=== PATIENT | male | born 1945 | race Caucasian/White ===

== ENCOUNTER 2019-07-11 19:18 | Emergency (ER) | payer OTHER, MEDICARE, SELFPAY ==
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
[2019-07-11 19:19] VITALS: BP 168/94; PULSE 72; RESP 20; TEMP 36.5; O2SAT 100
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
[2019-07-11 21:21] LABS: Blood Urea Nitrogen 12 mg/dL (8-26); Estimated Glomerular Filt Rate 60
[2019-07-11 22:48] VITALS: BP 156/99; PULSE 67; RESP 18; O2SAT 98
== END 2019-07-11 22:50 | disposition home or self-care (01) ==
PROVIDERS: Emergency Provider Emergency Medicine; PCP Family Medicine
DX: S16.1XXA Strain of muscle, fascia and tendon at neck level, initial encounter (principal); S30.1XXA Contusion of abdominal wall, initial encounter; I10 Essential (primary) hypertension; K58.9 Irritable bowel syndrome, unspecified; I34.1 Nonrheumatic mitral (valve) prolapse; E78.2 Mixed hyperlipidemia; M47.812 Spondylosis without myelopathy or radiculopathy, cervical region; Z79.82 Long term (current) use of aspirin; F32.9 Major depressive disorder, single episode, unspecified; F41.1 Generalized anxiety disorder; V40.5XXA Car driver injured in collision with pedestrian or animal in traffic accident, initial encounter
CPT/HCPCS: 70450; 71260; 72125; 74177; 99284; L0140; Q9967

== ENCOUNTER 2019-11-20 11:12 | Outpatient (CLI) | payer MEDICARE, SELFPAY ==
--- NOTE | ~2019-11-20 | XR_ITS ---
EXAMINATION: XR abdomen obstructive series DATE: 11/20/2019 11:37 INDICATION: Constipation TECHNIQUE: Upright and supine views of the abdomen were obtained. COMPARISON: None. FINDINGS: There are no dilated loops of bowel. No free intraperitoneal gas is identified. The abdomen is relatively gasless. There appear to be fluid-filled loops of normal caliber large and small bowel . 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 IMPRESSION: 1. Nonobstructive bowel gas pattern. Reviewed, dictated and finalized at location A.
== END 2019-11-20 11:13 | disposition home or self-care (01) ==
PROVIDERS: PCP Family Medicine; Visit Provider Family Medicine
DX: K59.00 Constipation, unspecified (principal)
CPT/HCPCS: 74019

== ENCOUNTER 2020-04-23 07:05 | Outpatient (NON) | payer MEDICARE, SELFPAY ==
[2020-04-23 23:24] LABS: SARS-CoV-2 RNA PCR Negative
== END 2020-04-23 07:06 ==
LOC: ANHCOVIDDT 07:24
PROVIDERS: Visit Provider Family Medicine
DX: Z20.828 Contact with and (suspected) exposure to other viral communicable diseases (principal); R51.9 Headache, unspecified
CPT/HCPCS: 87635; C9803; U0003

== ENCOUNTER → 2020-09-24 08:25 | Outpatient (CLI) | payer MEDICARE, SELFPAY ==
--- NOTE | ~2020-09-24 | MR_ITS ---
EXAMINATION: MR hip LT wo con DATE: 09/24/2020 09:47 INDICATION: Left hip pain TECHNIQUE: Magnetic resonance imaging (MRI) of the left hip was performed without intravenous contra st. Sequences included full-field axial PD-weighted FS FSE and T1-weighted FSE, coronal of the pelvis with PD-weighted FS FSE, T1-weighted FSE and T2-weighted FS FSE, small field of view of the left hi p with axial PD-weighted FS FSE, sagittal PD-weighted FS FSE and coronal PD weighted FS FSE. Addition al radial T1-weighted FGR oriented orthogonal to the acetabular rim were obtained for evaluation of t he labrum. COMPARISON: None FINDINGS: Bones/labrum/cartilage: Alignment is normal. No fracture, avascular necrosis or pathologic marrow replacing process. There i s a tear of the 2:00-12:00 position of the anterosuperior left acetabular labrum. There is moderate o steoarthritis at the left hip with nonuniform joint space narrowing and regions of high-grade chondro malacia with prominent subarticular cystic change at the posterosuperior aspect of the femoral head a nd at the posterior inferior left acetabulum. Mild osteoarthritis with similar anterosuperior labral tear suggested at the contralateral right hip which is not diagnostically evaluated on the larger fie ld of view images. Additional degenerative subchondral cysts at the anterosuperior and posterior infe rior right acetabulum. Mild to moderate disc height loss at L5-S1 and mild lower lumbar facet osteoar thritis and mild bilateral sacroiliac osteoarthritis. Fluid: Symmetric physiologic amount of fluid within both hip joints. Soft tissues: Normal and symmetric muscle bulk and signal in the pelvis and visualized proximal thighs. The iliopso as, gluteal and proximal hamstring tendons are normal. Marked prostatomegaly measuring 6.1 x 5.0 x 4. 6 cm. Limited evaluation of visceral organs of the pelvis is otherwise unremarkable. No pathological ly enlarged pelvic/inguinal lymphadenopathy. IMPRESSION: 1. Moderate left hip osteoarthritis with tear of the anterosuperior labrum. 2. Mild to moderate osteoarthritis with similar anterosuperior labral tear suggested at the contralat eral right hip although sensitivity and specificity are decreased due to the lower resolution on the larger [id number] images. 3. Prostatomegaly. Reviewed, dictated and finalized at location A. IMPRESSION: 1. Moderate left hip osteoarthritis with tear of the anterosuperior labrum. 2. Mild to moderate osteoarthritis with similar anterosuperior labral tear sugg ested at the contralateral right hip although sensitivity and specificity are d ecreased due to the lower resolution on the larger [id number] images. 3. Prostatomegaly.
== END ==
PROVIDERS: PCP Family Medicine; Visit Provider Family Medicine
DX: M25.552 Pain in left hip (principal); M16.12 Unilateral primary osteoarthritis, left hip; S73.192A Other sprain of left hip, initial encounter; N40.0 Benign prostatic hyperplasia without lower urinary tract symptoms
CPT/HCPCS: 73721

== ENCOUNTER 2021-06-11 08:02 | Outpatient (CLI) | payer MEDICARE, SELFPAY ==
[2021-06-11 09:37] LABS: Basophils Absolute Auto 0.1 K/mm3 (0.0-0.1); Basophils Percent Auto 1.3 % (0.2-1.2); Eosinophils Absolute Auto 0.2 K/mm3 (0-0.3); Eosinophils Percent Auto 2.9 % (0-4.4); Hematocrit 46.4 % (42.0-52.0); Hemoglobin 15.9 g/dL (14.0-18.0); Immature Granulocyte Absolute 0.04 K/mm3 (0.00-0.031); Immature Granulocyte Percent A 0.7 % (0-0.5); Lymphocytes Absolute Auto 1.27 K/mm3 (0.9-3.2); Lymphocytes Percent Auto 23.4 % (18.3-44.2); Mean Corpuscular HGB Conc 34.3 g/dl (32-36); Mean Corpuscular Hemoglobin 29.5 pg (26-34); Mean Corpuscular Volume 86.1 fl (80-100); Mean Platelet Volume 9.7 fl (7.4-10.4); Monocytes Absolute Auto 0.5 K/mm3 (0.1-0.6); Monocytes Percent Auto 9.9 % (2.6-8.5); Neutrophils Absolute Auto 3.4 K/mm3 (1.3-6.7); Neutrophils Percent Auto 61.8 % (45.5-73.1); Platelet Count Result 291 k/mm3 (150-375); Red Blood Count 5.39 M/mm3 (4.6-6.20); Red Cell Distribution Width 11.9 % (11.5-14.5); White Blood Count 5.4 K/mm3 (4.5-10.0)
[2021-06-11 09:58] LABS: Urine Cotinine NEGATIVE
[2021-06-11 10:00] LABS: Albumin Level 4.3 g/dL (3.5-5.1); Anion Gap 8 mmol/L (8-16); Blood Urea Nitrogen 11 mg/dL (9-20); Calcium 9.1 mg/dL (8.4-10.2); Carbon Dioxide 29 mmol/L (22-30); Chloride 97 mmol/L (98-107); Estimated Glomerular Filt Rate 59; Glucose 100 mg/dL (65-110); Potassium 4.6 mmol/L (3.4-5.0); Sodium 134 mmol/L (137-145)
[2021-06-11 10:05] LABS: Hemoglobin A1C 5.1 % (<5.7)
== END 2021-06-11 08:03 | disposition home or self-care (01) ==
LOC: ANHSURGERY 08:06
PROVIDERS: PCP Family Medicine; Visit Provider Orthopaedic Surgery
DX: Z01.812 Encounter for preprocedural laboratory examination (principal); M16.11 Unilateral primary osteoarthritis, right hip; Z51.81 Encounter for therapeutic drug level monitoring; Z79.899 Other long term (current) drug therapy
CPT/HCPCS: 80048; 80307; 82040; 83036; 85025; 87070

== ENCOUNTER 2021-06-28 10:05 | Inpatient (IN) | payer MEDICARE, SELFPAY ==
--- NOTE | 2021-06-11 08:09 | PC.NURSE ---
Report to the Outpatient Waiting Room, entrance under the green pavilion located off [facility], at time _6:00AM on date ___06/28/21____. OR Time: __7:30AM . - You and your visitor will be asked a series of questions to screen for COVID 19 for your protection. - A mask is required within the hospital. - Only one visitor is allowed at this time. Patient visitors will be guided where to wait when not with patient. Preoperative COVID Testing Requirements: No COVID Test needed if: (proof is required; if not received patient will have Rapid Test prior to entry) - Patient has received COVID Vaccine at least 14 days prior to procedure date or - Patient has positive COVID test result within last 90 days of surgery date. COVID Test needed if above criteria is not met If not COVID vaccinated a COVID test must be conducted within 72 hours of surgery and patient is asked to isolate self from time of testing until procedure. You will go to the [facility] for your COVID testing. The [facility] site is located at the corner of [address] [facility]. You will only be called if COVID results are positive and your surgeon may reschedule your elective surgery date. Patients may have clear liquids (water, carbonated beverages, clear teas, apple juice) until 3 hours prior to surgery with a maximum of 20 ounces. - No food from midnight until time of surgery - Infants may have breast milk until 4 hours before surgery, infant formula 6 hours prior to surgery. - Children will be allowed to drink immediately following surgery. If applicable, please bring a bottle or sippy cup to assist with drinking. Juice, water, soda, and popsicles are readily available. For infants on formula, please bring formula the day of surgery. Pacifiers are allowed. Take the following medications with a SIP of water the morning of surgery: __BUPROPION, BUSPIRONE Medications to discontinue per physician ALL VITAMINS/SUPPLEMENTS-3 DAYS PRE-OP-06/24/21, ASPIRIN & MELOXICAM 7 DAYS PRE-OP-06/21/21 Date to take last dose Please no make-up, nail bruneian, hairspray, perfume, deodorant, or body powder the day of surgery. No jewelry (including any body piercings) or valuables the day of surgery, leave them at home. Please take a shower or bath the night before, or the morning of, surgery with an antibacterial soap. Wear comfortable, loose fitting clothing. Children are encouraged to wear pajamas. - Jewelry must be removed prior to entering the operating room. Rings and piercings that are not removed may be cut off. - The hospital will not accept responsibility for valuables. - Please leave all valuables, including medications, at home the day of surgery. If you are going home after surgery, a licensed company truck driver must drive you home. - NO public transportation without another adult. - We recommend that an adult stay with you for 24 hours following discharge. - We also recommend that you do not drive, make important decision, drink alcoholic beverages, or take any drugs that were not prescribed by your health care provider for at least 24 hours after your discharge time. For Pediatric surgeries, we recommend two adults accompany the child home (only one inside the building at this time). Follow any additional instructions given to you from your surgeon. Telephone instructions given to ____PATIENT and asked if any additional questions and then verbalized understanding. Patient advised to call surgeon office or pre surgery nurse liaison [phone] if any additional questions.
[2021-06-11 08:29] VITALS: BP 167/92; PULSE 65; RESP 18; TEMP 36.5; O2SAT 95; BMI 27.8
--- NOTE | 2021-06-25 14:05 | PM.IMHP ---
H&P: HPI History of Present Illness Date/Time: 06/25/21 14:1845-[id number] male patient of Dr. Sosa who presents today for a right anterior total arthroplasty. He is having pain in both of his hips for several years. At this point his right is more painful than left. He has rather severe arthritis in both of his hips. He has been on meloxicam 15 mg daily which is tolerating unfortunately is not helping to control his symptoms. Most the pain is in the medial groin. It is limiting his activities because of the pain. Patient has reached a point where he feels ready proceed with total hip arthroplasty rather than continuing nonsurgical treatment. Chief Complaint: Right hip DJD Review of Systems Review of Systems: All systems reviewed & are unremarkable except as noted in HPI and below PMFSH Past Medical History Medical History Abdominal adhesions Benign prostatic hyperplasia Essential (primary) hypertension Family history of prostate carcinoma Generalized anxiety disorder Hydrocele IBS (irritable bowel syndrome) Macular degeneration Major depressive disorder, single episode, in partial remission Mitral valve prolapse Mixed hyperlipidemia Overweight (BMI 25.0-29.9) Surgical History Surgical History Hx of appendectomy Hx of tonsillectomy Family History Family History Mother Family history of hypercholesterolemia Hypertension Family history of cardiovascular disease Family history of schizophrenia Father Family history of cardiovascular disease Malignant neoplasm of prostate Grandparent Family history of cardiovascular disease Family history of hypercholesterolemia Sibling Patient's sister is in good health Family history of alcoholism Patient's brother is Other Family history of kidney stones Family history of mental disorder Social History Social History Smoking status: Never smoker Alcohol intake: former Alcohol use details: QUIT DRINKING HEAVILY ~1979 Substance use: never Spiritual care concerns: No Meds Home Medications and Allergies Home Medications Medication Instructions Recorded Confirmed Type aspirin 81 mg tablet,delayed 81 mg PO DAILY 06/27/19 06/11/21 History release cholecalciferol (vitamin D3) 50 50 mcg PO DAILY 07/13/20 06/11/21 History mcg (2,000 unit) capsule vitamin B complex 1 tablet PO EVERY OTHER DAY 07/13/20 06/11/21 History rosuvastatin 5 mg tablet 5 mg PO DAILY #90 tablet 04/19/21 06/11/21 Rx bupropion HCl [Wellbutrin XL] 150 mg PO QAM 06/11/21 06/11/21 History buspirone 10 mg PO BID 06/11/21 06/11/21 History doxepin 60 mg PO HS 06/11/21 06/11/21 History famotidine 40 mg PO QACDINNER 06/11/21 06/11/21 History folic acid 0.4 mg PO DAILY 06/11/21 06/11/21 History meloxicam 15 mg PO QAM 06/11/21 06/11/21 History nebivolol [Bystolic] 20 mg PO HS 06/11/21 06/11/21 History quetiapine [Seroquel] 25 mg PO HS 06/11/21 06/11/21 History lisinopril 20 mg tablet See Rx Instructions .ROUTE 06/16/21 Rx .COMPLEX #90 tablet Allergies Allergy/AdvReac Type Severity Reaction Status Date / Time azithromycin AdvReac Intermediate Nausea Verified 06/11/21 08:14 ciprofloxacin AdvReac Unknown Nausea Verified 06/11/21 08:14 SHINGLES IMMUNIZATION Allergy Rash Uncoded 06/11/21 08:15 Exam Narrative: 76-year-old male alert pleasant. He is 5 ft 10 195 lb. Walks with a minimal limp. His right hip flexes to 120 internally rotates to 0 externally rotates 30. With range of motion he has significant pain in the anterior medial groin and an anterior lateral hip. No tenderness over the greater trochanter. Normal abduction strength in lateral position. Skin around the hip and groin crease for all normal. No edema in either lower extremity. 2+ post
[2021-06-28] VITALS (16 sets, daily range): BP systolic 135–163; BP diastolic 66–100; PULSE 61–117; RESP 12–20; TEMP 36–36.8; O2SAT 94–100
--- NOTE | ~2021-06-28 | XR_ITS ---
EXAMINATION: XR hip RT 1V w AP pelvis DATE: 06/28/2021 11:05 INDICATION: Postoperative evaluation following right total hip arthroplasty TECHNIQUE: Anteroposterior and lateral views of the right hip were obtained. COMPARISON: Right hip radiographs dated 05/09/2008 FINDINGS: Interval placement of a right total hip arthroplasty which appears well seated in near anatomic align ment.The acetabular component is affixed with a single screw. Surgical drain and expected subcutaneou s gas in the postoperative bed. No fractures identified. Mild left hip osteoarthritis. IMPRESSION: 1. Right total hip arthroplasty, negative for postoperative purposes. Reviewed, dictated and finalized at location A. L COORDINATOR
--- NOTE | ~2021-06-28 | XR_ITS ---
EXAMINATION: XR surgery orthopedic EXAM DATE: 06/28/2021 10:47 INDICATION: Right Total Arthroplasty Anterior Approach. TECHNIQUE: Fluoroscopy used during XR surgery orthopedic performed by Dr. Raúl Alicia MD. Radi ologist was not present for the imaging or procedure. Total fluoroscopic time of 48 seconds. The DA P for this procedure was 0.3 mGym2. A total of 1 image plus dose report sent to PACS from the exam. FINDINGS: Frontal image demonstrates total right hip arthroplasty hardware in expected position. Co rrelate with procedure note. IMPRESSION: Fluoroscopy used during XR surgery orthopedic. Reviewed, dictated and finalized at location B. NSKEEPER SUPERVISOR
[2021-06-28] MEDS: ACETAMINOPHEN 500 MG TABLET 1000 MG PO (06:30)
[2021-06-28] MEDS: TRANEXAMIC ACID 1,000MG/ISO100 1,000 MG/100 ML BAG 200 MG IVPB (06:31)
--- NOTE | 2021-06-28 06:49 | WPDANESEPPF ---
Anes - Initial Pre Proc Eval Procedure: Operation Date: 06/28/21 07:30 Proposed Procedures p Right Total Hip Arthroplasty Anterior Approach - Raúl Alicia MD Date/Time: 06/28/21 06:49 Surgeon: Raúl Alicia MD Pre Op Diagnosis: right hip oa Patient Data Age: 76 Gender: M Height: 1.79 m Weight: 89.1 kg Last Vital Signs Temp 36.5 C 06/11/21 08:29 Pulse 65 06/11/21 08:29 Resp 18 06/11/21 08:29 BP 167/92 H 06/11/21 08:29 Pulse Ox 95 06/11/21 08:29 Allergies Allergy/AdvReac Type Severity Reaction Status Date / Time azithromycin AdvReac Intermediate Nausea Verified 06/11/21 08:14 ciprofloxacin AdvReac Unknown Nausea Verified 06/11/21 08:14 SHINGLES IMMUNIZATION Allergy Rash Uncoded 06/11/21 08:15 Home Medications Medication Instructions Recorded Confirmed Type aspirin 81 mg tablet,delayed 81 mg PO DAILY 06/27/19 06/11/21 History release cholecalciferol (vitamin D3) 50 50 mcg PO DAILY 07/13/20 06/11/21 History mcg (2,000 unit) capsule vitamin B complex 1 tablet PO EVERY OTHER DAY 07/13/20 06/11/21 History rosuvastatin 5 mg tablet 5 mg PO DAILY #90 tablet 04/19/21 06/11/21 Rx bupropion HCl [Wellbutrin XL] 150 mg PO QAM 06/11/21 06/11/21 History buspirone 10 mg PO BID 06/11/21 06/11/21 History doxepin 60 mg PO HS 06/11/21 06/11/21 History famotidine 40 mg PO QACDINNER 06/11/21 06/11/21 History folic acid 0.4 mg PO DAILY 06/11/21 06/11/21 History meloxicam 15 mg PO QAM 06/11/21 06/11/21 History nebivolol [Bystolic] 20 mg PO HS 06/11/21 06/11/21 History quetiapine [Seroquel] 25 mg PO HS 06/11/21 06/11/21 History lisinopril 20 mg tablet See Rx Instructions .ROUTE 06/16/21 Rx .COMPLEX #90 tablet Patient hx anesthesia problems: none Family hx anesthesia problems: none Results Review: All pre-operative results and documents have been reviewed as part of the pre-operative evaluation. [facility] Past Medical History Medical History Abdominal adhesions Benign prostatic hyperplasia Essential (primary) hypertension Family history of prostate carcinoma Generalized anxiety disorder Hydrocele IBS (irritable bowel syndrome) Macular degeneration Major depressive disorder, single episode, in partial remission Mitral valve prolapse Mixed hyperlipidemia Overweight (BMI 25.0-29.9) Surgical History Surgical History Hx of appendectomy Hx of tonsillectomy Family History Family History Mother Family history of hypercholesterolemia Hypertension Family history of cardiovascular disease Family history of schizophrenia Father Family history of cardiovascular disease Malignant neoplasm of prostate Grandparent Family history of cardiovascular disease Family history of hypercholesterolemia Sibling Patient's sister is in good health Family history of alcoholism Patient's brother is Other Family history of kidney stones Family history of mental disorder Social History Social History Smoking status: Never smoker Alcohol intake: former Alcohol use details: QUIT DRINKING HEAVILY ~1979 Substance use: never Living arrangements: alone Spiritual care concerns: No Anes - Eval Final PreProcedure Day of Procedure 06/28/21 06:49 Patient weight: overweight Heart: regular rate and rhythm Lungs: clear to auscultation Airway: Mallampati scale class II Neurological: alert and oriented Last oral intake: >/= 8 hours ASA classification: III Emergent: no Anesthetic plan: proceed Anesthesia type and monitoring: general ETT and standard monitoring Results Review: All pre-operative results and documents have been reviewed as part of the pre-operative evaluation. Informed Consent: The patient's anesthetic plan and its attendant risks an
[2021-06-28] MEDS: LACTATED RINGERS 1,000 ML 30 ML IV CONT ×2 (07:01→11:07)
--- NOTE | 2021-06-28 07:14 | WPDHPUPDATE1 ---
History and Physical Update Update Date/Time: 06/28/21 07:14 History and Physical has been reviewed, including an updated exam of the patient. There are NO changes in the patient's condition. Risks, benefits, and alternatives have been discussed and questions answered. Patient agrees to proceed with procedure.
[2021-06-28] MEDS: ceFAZolin 2 GM/D5W 50 ML 2 GM/50 ML BAG IVPB (07:32)
[2021-06-28] MEDS: ceFAZolin SODIUM 1 GM VIAL 3 GM IRRIGATION (08:29)
[2021-06-28] MEDS: TRANEXAMIC ACID 1,000 MG/10 ML AMPUL 1000 MG IV PUSH (10:31)
[2021-06-28] MEDS: ceFAZolin SODIUM 1 GM VIAL IV PUSH (10:31)
--- NOTE | 2021-06-28 11:34 | W.PM.PROC2 ---
Procedure Note - Detailed Date of Procedure 06/28/21 Pre-op Diagnosis right hip oa Post-op Diagnosis same Procedure Performed Right total hip arthroplasty Surgeon Raúl Alicia MD [employer] Account Manager Shira Anesthesia general Description of Procedure Patient was brought to the operating room and general anesthesia was administered. The feet were padded boots applied and [facility] and the right hip prepped draped usual fashion. He received 2 g Ancef weight based vancomycin preoperatively 1 g tranexamic acid. A 10 cm longitudinal incision was made starting 3 cm lateral to the ASIS. The fascia of the tensor fascia herbert was exposed and incised over its midportion and elevated off the anterior 50% of the tensor fascia herbert muscle. Crossing branches of lateral femoral ascending circumflex vessels were identified ligated and divided. Anterior capsule was exposed. The hip was abducted internally rotated and the gluteus medius elevated off the lateral capsule. Standard capsulotomy was performed. Femoral neck osteotomy was made according to preoperative templating. Femoral head was removed. It measured 50 mm in diameter. Acetabulum was exposed labrum excised. Femur was externally rotated extended and the interval between the conjoined tendon and the piriformis tendon was incised allowing the conjoined tendon to recessed. The piriformis flipped posteriorly. Leg was prepped brought back to the horizontal position acetabulum exposed and reamed to 51 mm which gave circumferential contact with the Reamer and the 51 mm trial was tight. We liked the 52 and impacted the 52 shell and which achieved excellent Press-Fit. This was placed at 40? of abduction and anteversion set the anterior rim the shell was a mm under the anterior well and about 2 mm proud the posterior wall. Fluoroscopic guidance assisted positioning. Single screw placed in the ilium. 36 mm inner diameter acetabular liner placed without difficulty. Femur was externally rotated extended with the table hook for elevation and we broached up to a size 5 which gave complete torsional stability. Trialing with a 1.5 standard neck we were just a little bit tight and we were about 3 mm longer than our templated plan. The broach was countersunk 5 mm and we trialed the +5 and just gave excellent stability and appropriate Shuck and under fluoro leg lengths were equal. The size 5 Depuy Actis stem was fully seated with excellent stability. We impacted the +5 x 36 ceramic head. And a puree irrigation the hip was reduced stability soft tissue tension reconfirmed to be appropriate. Local anesthetic cocktail was injected in the soft tissues. The anterior capsular flap allowed to rest in situ. The lateral tip of lateral capsular flap had been removed. Final intraoperative fluoro x-ray showed appropriate position of the implants. Capsule was repaired with running 1. Vicryl drain placed deep in the subcu skin closed with 2-0 Vicryl and glue EBL was 400 cc any received 125 back as Cell Saver. 3rd g Ancef 2nd tranexamic acid were given time wound closure. Was transferred postop recovery room in good condition no known complications. Bone quality see very good we allowed weight-bearing as tolerated. Implants Scifiniti Estimated Blood Loss -400.0 Drains Yes Packing No Pathology none sent Complications No immediate complications Condition stable Disposition PACU
[2021-06-28] MEDS: DEXAMETHASONE SOD PHOS INJ 4 MG/ML VIAL IV PUSH (11:47)
[2021-06-28] MEDS: ONDANSETRON INJ 4 MG/2 ML VIAL IV PUSH ×2 (12:07→15:49)
--- NOTE | 2021-06-28 13:24 | PC.NURSE ---
This patient, Sher Hicks, was admitted to [place] [address]. Patient oriented to hospital policies and general routines including ID bracelet, bed and alarms, pain management, procedures, bathroom and other care routines, personal items, smoking policy, and room service/diet. Information on how to activate the Rapid Response Team has been discussed. Patient are encouraged to report perceived risks to care and to ask questions if they do not understand what they are told or what they should do.
--- NOTE | 2021-06-28 13:35 | PCOTNOTE ---
Attempted OT evaluation, gained PLOF and completed bed mobility, unable to maintain sitting on edge of bed due to nausea, returned back to bed. Will return at later time to complete OT evaluation.
[2021-06-28] MEDS: PROPARACAINE HCL 0.5% 15 ML OPHTH SOLN 1 DROP EACH EYE (13:49)
[2021-06-28] MEDS: ARTIFICIAL TEARS OPHTH SOLN 15 ML BOTTLE 1 DROP EACH EYE (13:49)
--- NOTE | 2021-06-28 13:51 | PCPTNOTE ---
Attempted PT evaluation, gained PLOF and completed bed mobility, unable to maintain sitting on edge of bed due to nausea, returned back to bed. Will return at later time to complete PT evaluation.
[2021-06-28] MEDS: SODIUM CHLORIDE 0.9% IV 1,000 ML 125 ML IV CONT (13:57)
--- NOTE | 2021-06-28 15:30 | WPDCN ---
Assessment and Plan Assessment and plan (1) Osteoarthritis of right hip: Code(s): M16.11 - Unilateral primary osteoarthritis, right hip Status: Acute Assessment and Plan: Postoperative day 0 status post right hip arthroplasty. Wound care, pain control, and DVT prophylaxis deferred to Dr. Alicia. He has been up with PT already today and is doing well. (2) Essential (primary) hypertension: Code(s): I10 - Essential (primary) hypertension Status: Chronic Assessment and Plan: Blood pressures have been running a bit high postoperatively, likely due to pain. Resume antihypertensives and monitor daily. (3) Mixed hyperlipidemia: Code(s): E78.2 - Mixed hyperlipidemia Status: Chronic Assessment and Plan: Continue statin check LFTs in the morning. (4) Depression with anxiety: Code(s): F41.8 - Other specified anxiety disorders Status: Acute Assessment and Plan: No acute issues. Continue bupropion, buspirone, and doxepin. (5) Benign prostatic hyperplasia: Code(s): N40.0 - Benign prostatic hyperplasia without lower urinary tract symptoms Status: Acute Assessment and Plan: Patient states he is not able to tolerate medications for this, unfortunately. I am concerned that he may have difficulties with urinary retention postoperatively. Monitor strict I/ O. Bladder scan and straight cath if needed. Additional Plan Thank you for allowing us to participate in this patient's care. Please do not hesitate to contact us with any questions. Supervising physician for this medical consultation is Dr. George Lowe. On the date of service, he was a same-day surgery patient. HPI Data of Consult Date/Time: 06/28/21 15:30 Requesting Physician: Raúl Alicia MD Reason for consult: Post-operative medical management Primary Care Provider: Adriano Sosa MD Consult Narrative Narrative: This is a very pleasant 76-year-old male with hypertension, hyperlipidemia, benign prostatic hyperplasia, and osteoarthritis whom the hospitalist service has been consulted for management of his medical conditions postoperatively. He has had longstanding pain in his right hip, not amenable to conservative outpatient treatment and thus he elected for replacement today. His surgery was perform today under general anesthesia with no immediate complications document an estimate blood lost 400 mL with 125 mL received back as Cell Saver. Postoperatively he had quite a bit of nausea and vomiting though was able to have a small amount of broth and putting for dinner. He has minimal pain and has been up in his room without issue. He denies fever, chills, sweats, chest pain, and shortness of breath. No paresthesias, skin color, or temperature changes distal to the surgical site. On discharge the patient will return to his own home. His sister has come in from [place] to help him out postoperatively. Review of Systems Review of Systems: Twelve systems were reviewed. No fever, chills, or sweats. No recent cold or flu symptoms. No known exposure to those positive for COVID-19. He has had issues for quite a while with BPH though has not been able to tolerate medication. It is not unusual for him to get up 3 to 4 times a night to urinate. Sometimes it will take him minutes before he is able to start his stream. Postoperatively he has been having problems with urination. I suggested that we may need to straight cath him however he is hesitant at this time. No history of venous thromboembolism. Except as documented, all other systems were reviewed and are negative. [facility] Past Medical History Medical History (Updated 06/28/21 @ 13:44 by Dominga Marquez PA-C) Benign prostatic hyperplasia Essential (primary) hypertension Generalized anxiety disorder Irritable bowel syndrome Macular degeneration Major depressive di
--- NOTE | 2021-06-28 16:05 | PC.NURSE ---
Gave report to NIRMAL Salazar. Patient will be transferred to inpatient floor.
[2021-06-28] MEDS: SENNA/DOCUSATE SODIUM TABLET 2 TAB PO (19:16)
[2021-06-28] MEDS: NEBIVOLOL HCL 5 MG TABLET 20 MG PO (20:47)
[2021-06-28] MEDS: DOXEPIN HCL 25 MG CAPSULE 50 MG PO (20:49)
[2021-06-28] MEDS: DOXEPIN HCL 10 MG CAPSULE PO (20:50)
[2021-06-28] MEDS: QUEtiapine FUMARATE 25 MG TABLET PO (22:14)
[2021-06-28] MEDS: FAMOTIDINE 20 MG TABLET PO (22:14)
[2021-06-28] MEDS: DICLOFENAC SODIUM 0.1% OPHTH SOLN 2.5 ML BOTTLE 1 DROP EACH EYE (22:44)
[2021-06-28] MEDS: LIDOCAINE HCL 2% GEL UROJET 10 ML PKG MUCOUS MEM (22:44)
[2021-06-29 02:13] VITALS: BP 159/76; PULSE 86; RESP 20; TEMP 37.1; O2SAT 98
[2021-06-29] MEDS: oxyCODONE HCL (*CRX) 5 MG TAB IR PO (05:49)
[2021-06-29] MEDS: DICLOFENAC SODIUM 0.1% OPHTH SOLN 2.5 ML BOTTLE 1 DROP EACH EYE (05:51)
[2021-06-29 05:53] LABS: Basophils Percent Auto 0.2 % (0.2-1.2); Eosinophils Percent Auto 0.1 % (0-4.4); Hematocrit 35.9 % (42.0-52.0); Hemoglobin 12.3 g/dL (14.0-18.0); Immature Granulocyte Absolute 0.05 K/mm3 (0.00-0.031); Immature Granulocyte Percent A 0.4 % (0-0.5); Lymphocytes Absolute Auto 1.13 K/mm3 (0.9-3.2); Lymphocytes Percent Auto 9.9 % (18.3-44.2); Mean Corpuscular HGB Conc 34.3 g/dl (32-36); Mean Corpuscular Hemoglobin 29.5 pg (26-34); Mean Corpuscular Volume 86.1 fl (80-100); Mean Platelet Volume 9.7 fl (7.4-10.4); Monocytes Absolute Auto 1.3 K/mm3 (0.1-0.6); Monocytes Percent Auto 11.6 % (2.6-8.5); Neutrophils Absolute Auto 8.9 K/mm3 (1.3-6.7); Neutrophils Percent Auto 77.8 % (45.5-73.1); Platelet Count Result 237 k/mm3 (150-375); Red Blood Count 4.17 M/mm3 (4.6-6.20); Red Cell Distribution Width 11.5 % (11.5-14.5); White Blood Count 11.4 K/mm3 (4.5-10.0)
[2021-06-29 06:06] LABS: Alanine Aminotransferase 17 U/L (4-50); Albumin Level 3.4 g/dL (3.5-5.1); Alkaline Phosphatase 50 U/L (38-126); Anion Gap 3 mmol/L (8-16); Aspartate Amino Transferase 32 U/L (17-59); Bilirubin,Total 0.8 mg/dL (0.2-1.3); Blood Urea Nitrogen 10 mg/dL (9-20); Calcium 8.3 mg/dL (8.4-10.2); Carbon Dioxide 27 mmol/L (22-30); Chloride 97 mmol/L (98-107); Estimated CRCL calculation 66 ml/min; Estimated Glomerular Filt Rate > 60; Glucose 119 mg/dL (65-110); Magnesium 1.8 mg/dL (1.6-2.3); Potassium 3.6 mmol/L (3.4-5.0); Sodium 127 mmol/L (137-145)
[2021-06-29 06:13] VITALS: BP 150/86; PULSE 95; RESP 20; TEMP 37; O2SAT 98
--- NOTE | 2021-06-29 06:29 | PM.PNORT ---
Subjective Subjective Date/Time Seen: 06/29/21 06:29 Postop day 1 patient is alert and pleasant. He is afebrile vital signs are stable. He was having quite a bit and nausea postoperatively yesterday and was unable to ambulate with physical therapy. Overnight nausea has improved. He has had no bouts of vomiting. He did have retention and needed to be straight catheterization overnight. Since then he has been urinating well. Patient has a known history of an enlarged prostate that he provided me this information today. He has a appointment with Urology later this month. His drain is out. Neurovascularly he is intact. Pain is controlled overall. He is taking oxycodone this morning. He has refused Tylenol overnight because he was not having any pain. His Eliquis starting this morning. We will plan to have the patient work with physical therapy today and discharge him home later this morning or this afternoon depending does with therapy. Morning labs are noted. Objective Data Vital Signs Vital Signs: Vital Signs - 24 hr 06/28/21 07:00 06/28/21 11:07 06/28/21 11:20 Temperature 36.1 C L 36.5 C Pulse Rate 65 84 62 Respiratory Rate 16 12 12 Blood Pressure 154/85 H 142/66 H 135/78 Pulse Oximetry 100 100 100 06/28/21 11:35 06/28/21 11:50 06/28/21 12:00 Temperature Pulse Rate 61 62 62 Respiratory Rate 12 12 13 Blood Pressure 138/84 145/74 H 138/77 Pulse Oximetry 100 100 99 06/28/21 12:15 06/28/21 12:28 06/28/21 12:43 Temperature 36.0 C L Pulse Rate 65 117 H 65 Respiratory Rate 12 18 15 Blood Pressure 141/74 H 148/100 H 148/70 H Pulse Oximetry 100 94 100 06/28/21 13:15 06/28/21 14:00 06/28/21 15:09 Temperature 36.2 C L 36.5 C 36.1 C L Pulse Rate 64 68 100 Respiratory Rate 19 19 19 Blood Pressure 142/66 H 148/82 H 148/82 H Pulse Oximetry 97 100 100 06/28/21 16:00 06/28/21 18:13 06/28/21 20:47 Temperature 36.6 C 36.8 C Pulse Rate 79 85 102 H Respiratory Rate 18 18 Blood Pressure 147/98 H 154/98 H Pulse Oximetry 100 99 06/28/21 22:13 06/29/21 02:13 Temperature 36.8 C 37.1 C Pulse Rate 98 86 Respiratory Rate 20 20 Blood Pressure 163/85 H 159/76 H Pulse Oximetry 99 98 Intake/Output Intake/Output: Intake & Output 06/26/21 06/27/21 06/28/21 06/29/21 23:59 23:59 23:59 23:59 Intake Total 1500 Output Total 980 Balance 520 Meds/Results Medications: Active Medications Generic Name Dose Route Start Last Admin Trade Name Freq PRN Reason Stop Dose Admin Acetaminophen 1,000 mg 06/28/21 17:24 Acetaminophen 500 Mg Tablet PO Q6HR PRN pain 1-3 Apixaban 2.5 mg 06/29/21 09:00 Apixaban 2.5 Mg Tablet PO 07/10/21 21:01 Q12HR JAMAR Artificial Tears 1 drop 06/28/21 12:47 06/28/21 13:49 Artificial Tears Ophth Soln 15 Ml Bottle EACH EYE 1 drop Q2H PRN Administration Dry Eye(s) Bisacodyl 10 mg 06/28/21 12:28 Bisacodyl 10 Mg Suppository RECTAL DAILY PRN Constipation Bupropion HCl 150 mg 06/29/21 09:00 Bupropion Hcl Xl (24 Hr) 150 Mg Tabcr PO QAM JAMAR Buspirone HCl 10 mg 06/28/21 17:24 Buspirone Hcl 10 Mg Tablet PO BID PRN Anxiety Celecoxib 200 mg 06/29/21 08:00 Celecoxib 200 Mg Capsule PO DAILY@0800 JAMAR Diclofenac Sodium 1 drop 06/28/21 14:00 06/29/21 05:51 Diclofenac Sodium 0.1% Ophth Soln 2.5 Ml Bottle EACH EYE 07/02/21 13:59 1 drop Q8HR JAMAR Administration Diphenhydramine HCl 25 mg 06/28/21 12:28 Diphenhydramine Hcl Inj 50 Mg/Ml Vial IV PUSH Q6H PRN Itching Doxepin HCl 50 mg 06/28/21 21:00 06/28/21 20:49 Doxepin Hcl 25 Mg Capsule PO 50 mg HS JAMAR Administration Doxepin HCl 10 mg 06/28/21 21:00 06/28/21 20:50 Doxepin Hcl 10 Mg Capsule PO 10 mg HS JAMAR Administration Famotidine 20 mg 06/28/21 21:00 06/28/21 22:14 Famotidine 20 Mg Tablet PO 20 mg Q12HR JAMAR Administration Folic Acid 0.4 mg 06/29/21 09:00 Folic Acid 0.
--- NOTE | 2021-06-29 06:38 | PM.DS ---
DS: Admitting Diagnosis Discharge Date 06/29/2021 Admitting Diagnosis right hip DJD DS: Summary Hospital Course Hospital Course: stable Time Spent with Patient Time attestation: Total time spent providing and/or coordinating discharge services: 76-year-old male who underwent right anterior total hip arthroplasty on 06/17/2021. Under procedure Without complications. Postoperatively he was nauseated quite a bit. he was able to ambulate with physical therapy postoperatively on day of surgery because of the nausea. No episodes of vomiting. Patient did have some urinary retention overnight need be straight cath. Since that time he has been urinating well. He has a known history of enlarged prostate. He has a appointment with Urology later this month. He refused the Tylenol overnight. Morning of postop day 1 he did take the oxycodone and tolerated this well without any nausea. He starts his Eliquis this morning as well and will be on this for 5 weeks. He is also started Celebrex once a day. Therapy will work with patient on postop day 1 if he is having no nausea is feeling well plan on discharging him home later that day. Patient's drain is out. Neurovascularly he is intact. His wound is dry. Patient's sodium was low on postop day 1 but he was having no symptoms from this. Overall patient is progressing well. Was advise any questions or concerns he is to call the office otherwise we will see him as appointed dates. DS: Data Data Completed and Pending Labs on day of discharge: Labs from last 24 hours 06/29/21 06/29/21 06/28/21 05:43 05:43 06:28 WBC 11.4 H RBC 4.17 L Hgb 12.3 L D Hct 35.9 L MCV 86.1 MCH 29.5 MCHC 34.3 RDW 11.5 Plt Count 237 MPV 9.7 Immature Gran % (Auto) 0.4 Neut % (Auto) 77.8 H Lymph % (Auto) 9.9 L [place] % (Auto) 11.6 H Eos % (Auto) 0.1 Baso % (Auto) 0.2 Lymph # (Auto) 1.13 [place] # (Auto) 1.3 H Eos # (Auto) 0.0 Baso # (Auto) 0.0 Abs Immat Gran (auto) 0.05 H Absolute Neuts (auto) 8.9 H Absolute Nucleated RBC 0.0 Nucleated RBC % 0.0 Sodium 127 L Potassium 3.6 Chloride 97 L Carbon Dioxide 27 Anion Gap 3 L BUN 10 Creatinine 0.90 Estim Creat Clear Calc 66 Estimated GFR > 60 Glucose 119 H Calcium 8.3 L Magnesium 1.8 Total Bilirubin 0.8 Direct Bilirubin 0.0 AST 32 ALT 17 Alkaline Phosphatase 50 Total Protein 6.0 L Albumin 3.4 L Blood Type A Positive Antibody Screen Negative Discharge Plan Discharge Patient Disposition: Home, Self-Care Discharge Instructions: RAÚL ALICIA M.D [facility], [place] [id number] [place] [address] POST-OPERATIVE DISCHARGE INSTRUCTIONS ANTERIOR TOTAL HIP ARTHROPLASTY 1. Move toes/feet up and down every hour while awake. 2. Be up walking every hour while awake. 3. Use cane in hand opposite of side of hip surgery or walker as comfort allows. Avoid sitting in a chair unless eating, receiving visitors or using the toilet. 4. When resting, lie on back with leg elevated above heart to minimize swelling. Significant swelling could indicate a blood clot and if this occurs, call the office (or go to the ER) to have a venous ultrasound performed. 5. Wound Care: Keep dry sponge on wound for 2 weeks. Use minimal tape. 6. Follow weight bearing status as instructed. 7. May shower with dressing off. Patient Instructions: Apixaban (By mouth) Follow-up/Referrals: Raúl Alicia MD [Physician] - Keep Reg. Scheduled Appt. Discharge Medications: New celecoxib [Celebrex] 200 mg Capsule 200 mg PO DAILY@0800 Qty: 10 RF: 0 polyethylene glycol 3350 [Miralax] 17 gram Powder In Packet 17 g PO QAM Qty: 30 RF: 0 sennosides-docusate sodium [Senokot-S] 8.6-50 mg Tablet 2 tab PO BID Qty: 60 RF: 0 acetaminophen 500 mg Tablet 1,000 mg
[2021-06-29] MEDS: SENNA/DOCUSATE SODIUM TABLET 2 TAB PO (08:17)
[2021-06-29] MEDS: FAMOTIDINE 20 MG TABLET PO (08:18)
[2021-06-29] MEDS: polyethylene glycoL 3350 17 GM POWD.PACK PO (08:22)
--- NOTE | 2021-06-29 08:43 | P.PNAN_ITS ---
Anes - Prog Note Post-Op Date/Time: 06/29/21 08:43 Cardiovascular status: normal Respiratory status: normal Airway patency: baseline Mental status: baseline Post-Op hydration status: normal Vital Signs: Last Vital Signs Temp 98.6 F 06/29/21 06:13 Pulse 95 06/29/21 06:13 Resp 20 06/29/21 06:13 BP 150/86 H 06/29/21 06:13 Pulse Ox 98 06/29/21 06:13 Pain Score (VAS): 05/31 I/O: Intake & Output 06/28/21 06/29/21 06/29/21 23:59 07:59 15:59 Intake Total 950 800 Output Total 980 400 Balance -30 400 Laboratory Tests 06/29/21 05:43 06/29/21 05:43 06/29/21 06/29/21 05:43 05:43 WBC 11.4 H RBC 4.17 L Hgb 12.3 L D Hct 35.9 L MCV 86.1 MCH 29.5 MCHC 34.3 RDW 11.5 Plt Count 237 MPV 9.7 Immature Gran % (Auto) 0.4 Neut % (Auto) 77.8 H Lymph % (Auto) 9.9 L [place] % (Auto) 11.6 H Eos % (Auto) 0.1 Baso % (Auto) 0.2 Lymph # (Auto) 1.13 [place] # (Auto) 1.3 H Eos # (Auto) 0.0 Baso # (Auto) 0.0 Abs Immat Gran (auto) 0.05 H Absolute Neuts (auto) 8.9 H Absolute Nucleated RBC 0.0 Nucleated RBC % 0.0 Sodium 127 L Potassium 3.6 Chloride 97 L Carbon Dioxide 27 Anion Gap 3 L BUN 10 Creatinine 0.90 Estim Creat Clear Calc 66 Estimated GFR > 60 Glucose 119 H Calcium 8.3 L Magnesium 1.8 Total Bilirubin 0.8 Direct Bilirubin 0.0 AST 32 ALT 17 Alkaline Phosphatase 50 Total Protein 6.0 L Albumin 3.4 L Post-procedural complaints: none Patient Feedback: Patient satisfied with anesthetic care.
[2021-06-29] MEDS: CELECOXIB 200 MG CAPSULE PO (09:20)
[2021-06-29] MEDS: buPROPion HCL XL (24 HR) 150 MG TABCR PO (09:20)
[2021-06-29] MEDS: APIXABAN 2.5 MG TABLET PO (09:21)
[2021-06-29 10:04] VITALS: BP 147/83; PULSE 83; RESP 16; TEMP 36.7; O2SAT 99
== END 2021-06-29 13:05 | disposition home or self-care (01) | DRG 470 ==
LOC: ANH2MED 23:57
PROVIDERS: Physician Assistant; Physician Assistant Surgical; Admitting Provider Orthopaedic Surgery; PCP Family Medicine; Visit Provider Orthopaedic Surgery
PROC: 0SR904A Replacement of Right Hip Joint with Ceramic on Polyethylene Synthetic Substitute, Uncemented, Open Approach (ICD-10-PCS; CPT 27130; principal; 2021-06-28 07:30)
DX: M16.11 Unilateral primary osteoarthritis, right hip (principal); E78.2 Mixed hyperlipidemia; I10 Essential (primary) hypertension; F41.8 Other specified anxiety disorders; N40.1 Benign prostatic hyperplasia with lower urinary tract symptoms; R33.8 Other retention of urine; Z79.82 Long term (current) use of aspirin; Z79.899 Other long term (current) drug therapy; Z88.1 Allergy status to other antibiotic agents; Z88.7 Allergy status to serum and vaccine; Z98.49 Cataract extraction status, unspecified eye
CPT/HCPCS: 36415; 73501; 80048; 80076; 83735; 85025; 86850; 86900; 86901; 97110; 97116; 97161; 97165; 97530; 97535; A9270; C1776; J0171; J0330; J0690; J1100; J1170; J1885; J2250; J2270; J2405; J2704; J2710; J2795; J3010; J3370; J7030; J7040; J7120

== ENCOUNTER 2022-01-17 00:36 | Day surgery (SDC) | payer MEDICARE, SELFPAY ==
[2022-01-12 13:58] VITALS: BMI 28.0
[2022-01-17 10:23] VITALS: BP 166/80; PULSE 67; RESP 20; TEMP 35.8; O2SAT 98; BMI 27.0
[2022-01-17] MEDS: LACTATED RINGERS 1,000 ML 150 ML IV CONT (10:37)
[2022-01-17] MEDS: AMPICILLIN 2 GM/NS 100 ML 2 GM/100 ML BAG IVPB (10:38)
--- NOTE | 2022-01-17 10:40 | WPDANESEPPF ---
Anes - Initial Pre Proc Eval Procedure: Operation Date: 01/17/22 11:00 Proposed Procedures p Esophagogastroduodenoscopy - Nelson Estrada MD Date/Time: 01/17/22 10:40 Surgeon: Nelson Estrada MD Pre Op Diagnosis: dysphagia Patient Data Age: 76 Gender: M Height: 1.8 m Weight: 88 kg Last Vital Signs Temp 35.8 C L 01/17/22 10:23 Pulse 67 01/17/22 10:23 Resp 20 01/17/22 10:23 BP 166/80 H 01/17/22 10:23 Pulse Ox 98 01/17/22 10:23 O2 Del Method Room Air 01/17/22 10:23 Allergies Allergy/AdvReac Type Severity Reaction Status Date / Time azithromycin AdvReac Intermediate Nausea Verified 01/17/22 10:22 ciprofloxacin AdvReac Unknown Nausea Verified 01/17/22 10:22 SHINGLES IMMUNIZATION Allergy Rash Uncoded 01/17/22 10:22 Home Medications Medication Instructions Recorded Confirmed Type cholecalciferol (vitamin D3) 50 50 mcg PO DAILY 07/13/20 01/12/22 History mcg (2,000 unit) capsule vitamin B complex (B 1 tablet PO EVERY OTHER DAY 07/13/20 01/12/22 History Complex-Vitamin B12 tablet) doxepin 10 mg/mL oral concentrate 60 mg PO HS 06/11/21 01/12/22 History folic acid 15 mg tablet 0.4 mg PO DAILY 06/11/21 01/12/22 History nebivolol 20 mg tablet (Bystolic) 20 mg PO HS 06/11/21 01/12/22 History lisinopril 20 mg tablet 20 mg PO QPM 06/28/21 01/12/22 History polyethylene glycol 3350 17 gram 17 g PO QAM #30 ea 06/29/21 01/12/22 Rx oral powder packet (Miralax) bupropion HCl 150 mg 24 hr tablet, See Rx Instructions .Route 09/20/21 01/12/22 Rx extended release .COMPLEX #90 tabs famotidine 40 mg tablet See Rx Instructions .Route 10/21/21 01/12/22 Rx .COMPLEX #90 tabs meloxicam 15 mg tablet See Rx Instructions .Route 10/25/21 01/12/22 Rx .COMPLEX #90 tabs quetiapine 25 mg tablet See Rx Instructions .Route 11/15/21 01/12/22 Rx .COMPLEX #180 tabs buspirone 10 mg tablet See Rx Instructions .Route 01/04/22 01/12/22 Rx .COMPLEX #180 tabs aspirin 81 mg capsule 81 mg PO DAILY 01/12/22 01/12/22 History finasteride 5 mg tablet 5 mg PO DAILY 01/12/22 01/12/22 History Patient hx anesthesia problems: none Family hx anesthesia problems: none Results Review: All pre-operative results and documents have been reviewed as part of the pre-operative evaluation. [facility] Past Medical History Medical History Benign prostatic hyperplasia Essential (primary) hypertension Generalized anxiety disorder Irritable bowel syndrome Macular degeneration Major depressive disorder, single episode, in partial remission Mitral valve prolapse Mixed hyperlipidemia Surgical History Surgical History History of appendectomy History of cataract extraction History of hydrocelectomy History of tonsillectomy History of total right hip arthroplasty (06/28/21) Family History Family History Mother Family history of hypercholesterolemia Hypertension Family history of cardiovascular disease Family history of schizophrenia Father Family history of cardiovascular disease Malignant neoplasm of prostate Grandparent Family history of cardiovascular disease Family history of hypercholesterolemia Sibling Patient's sister is in good health Family history of alcoholism Patient's brother is Other Family history of kidney stones Family history of mental disorder Social History Social History (Updated 10/07/21 @ 14:02 by Marii Arroyo Bebe) Social History: Surrogate decision maker: Duyen Hicks, daughter. Code status: Full code. Alcohol intake: former Alcohol use details: No alcohol since 1973. Substance use: never Substance use type: does not use Additional living arrangements comments: . Two grown children. 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
--- NOTE | 2022-01-17 10:44 | PM.IMHP ---
H&P: HPI History of Present Illness Date/Time: 01/17/22 10:44 Chief Complaint: Dysphagia Narrative: this is a 76-year-old white male patient presents for EGD. Patient has had 4 months with difficulty swallowing. Solid pieces of food will catch low in the mid substernal portion of the chest. He sometimes will feel as though he chokes if he tries to wash this down with water. Patient denies any bleeding or weight loss. He has a distant history of similar problems 10 years ago that resolved after esophageal dilatation. Patient presents today for EGD to assess difficulty swallowing. Review of Systems Review of Systems: Review of systems noncontributory. [facility] Past Medical History Medical History Benign prostatic hyperplasia Essential (primary) hypertension Generalized anxiety disorder Irritable bowel syndrome Macular degeneration Major depressive disorder, single episode, in partial remission Mitral valve prolapse Mixed hyperlipidemia Surgical History Surgical History History of appendectomy History of cataract extraction History of hydrocelectomy History of tonsillectomy History of total right hip arthroplasty (06/28/21) Family History Family History Mother Family history of hypercholesterolemia Hypertension Family history of cardiovascular disease Family history of schizophrenia Father Family history of cardiovascular disease Malignant neoplasm of prostate Grandparent Family history of cardiovascular disease Family history of hypercholesterolemia Sibling Patient's sister is in good health Family history of alcoholism Patient's brother is Other Family history of kidney stones Family history of mental disorder Social History Social History (Updated 10/07/21 @ 14:02 by IVONNE Smith) Social History: Surrogate decision maker: Duyen Hicks, daughter. Code status: Full code. Alcohol intake: former Alcohol use details: No alcohol since 1973. Substance use: never Substance use type: does not use Additional living arrangements comments: . Two grown children. 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 Meds Home Medications and Allergies Home Medications Medication Instructions Recorded Confirmed Type cholecalciferol (vitamin D3) 50 50 mcg PO DAILY 07/13/20 01/12/22 History mcg (2,000 unit) capsule vitamin B complex (B 1 tablet PO EVERY OTHER DAY 07/13/20 01/12/22 History Complex-Vitamin B12 tablet) doxepin 10 mg/mL oral concentrate 60 mg PO HS 06/11/21 01/12/22 History folic acid 15 mg tablet 0.4 mg PO DAILY 06/11/21 01/12/22 History nebivolol 20 mg tablet (Bystolic) 20 mg PO HS 06/11/21 01/12/22 History lisinopril 20 mg tablet 20 mg PO QPM 06/28/21 01/12/22 History polyethylene glycol 3350 17 gram 17 g PO QAM #30 ea 06/29/21 01/12/22 Rx oral powder packet (Miralax) bupropion HCl 150 mg 24 hr tablet, See Rx Instructions .Route 09/20/21 01/12/22 Rx extended release .COMPLEX #90 tabs famotidine 40 mg tablet See Rx Instructions .Route 10/21/21 01/12/22 Rx .COMPLEX #90 tabs meloxicam 15 mg tablet See Rx Instructions .Route 10/25/21 01/12/22 Rx .COMPLEX #90 tabs quetiapine 25 mg tablet See Rx Instructions .Route 11/15/21 01/12/22 Rx .COMPLEX #180 tabs buspirone 10 mg tablet See Rx Instructions .Route 01/04/22 01/12/22 Rx .COMPLEX #180 tabs aspirin 81 mg capsule 81 mg PO DAILY 01/12/22 01/12/22 History finasteride 5 mg tablet 5 mg PO DAILY 01/12/22 01/12/22 History Allergies Allergy/AdvReac Type Severity Reaction Status Date / Time azithromycin AdvReac Intermediate Nausea Verified 01/17/22 10:22 ciprofloxacin AdvReac Unknown Nausea Verified 01/17/22 10:22 SHINGLES IMMUNIZ
[2022-01-17 11:32] VITALS: BP 128/67; PULSE 57; RESP 18; O2SAT 100
[2022-01-17 11:42] VITALS: BP 125/70; PULSE 56; RESP 14; O2SAT 96
[2022-01-17 11:52] VITALS: BP 128/73; PULSE 56; RESP 14; O2SAT 96
--- NOTE | 2022-01-17 13:48 | SUR.PREOP ---
1100 Pt stated soon after being in the preoperative area that his bed felt as though it was shaking. There was no visible signs of the bed shaking. I told the patient I was unsure of what would be causing the shaking and that no other patient had ever mentioned their stretcher shaking before. A time later I checked on the patient. He again said the bed felt as though it was shaking. I asked if maybe it was his anxiety as he had mentioned having a history of high anxiety and that he was anxious about his upcoming procedure. He confirmed he was quite anxious and stated he is very sensitive to things such as beds shaking, more than what others may be. I offered reassurance and educated patient on the procedure to help ease his anxieties. Some time later, I again checked in on the patient before his procedure. He then stated that his back felt as though it was fibrillating near his shoulders. He didn't describe any pain, but more of a shaking of his muscles and was laying still. I offered the patient a warm blanket to wrap around his shoulders to which he refused. The patient then soon left for his procedure.
== END 2022-01-17 12:13 | disposition home or self-care (01) ==
PROVIDERS: PCP Family Medicine; Visit Provider Internal Medicine Gastroenterology
PROC: 0DJ08ZZ Inspection of Upper Intestinal Tract, Via Natural or Artificial Opening Endoscopic (ICD-10-PCS; CPT 43235; principal; 2022-01-17 11:00)
DX: R13.19 Other dysphagia (principal); Q39.4 Esophageal web; N40.1 Benign prostatic hyperplasia with lower urinary tract symptoms; I10 Essential (primary) hypertension; F41.1 Generalized anxiety disorder; K58.9 Irritable bowel syndrome, unspecified; F32.9 Major depressive disorder, single episode, unspecified; E78.2 Mixed hyperlipidemia; I34.1 Nonrheumatic mitral (valve) prolapse; Z79.82 Long term (current) use of aspirin; H35.30 Unspecified macular degeneration
CPT/HCPCS: 43450; 43235; J0290; J2704; J7120

== ENCOUNTER 2022-05-01 10:14 | Emergency (ER) | payer MEDICARE, SELFPAY ==
--- NOTE | 2022-05-01 11:14 | PC.NURSE ---
1020- when in triage, pt decided not to be seen, unknown reason, i did not see this patient.
== END 2022-05-01 11:14 | disposition left against medical advice (07) ==
PROVIDERS: Emergency Provider Nurse Practitioner Family; PCP Family Medicine
DX: Z53.21 Procedure and treatment not carried out due to patient leaving prior to being seen by health care provider (principal)
CPT/HCPCS: 99199

== ENCOUNTER 2022-05-31 09:18 | Emergency (ER) | payer MEDICARE, SELFPAY ==
--- NOTE | 2022-05-31 09:22 | ED.SKABFB ---
HPI - Skin/Abscess/Foreign Bdy General Chief complaint: Wound/Laceration Stated complaint: FALL/HEAD INJURY/SCALP LACERATION Time Seen by Provider: 05/31/22 09:22 Source: patient and RN notes reviewed History of Present Illness HPI narrative: Patient is a 76-year-old male who presents to the Urgent Care with complaints of a fall with a scalp laceration. Patient states that he was caring chairs down wooden stairs just prior to arrival and lost his balance. Patient states that he scraped his head on the wall. States that he fell down approximately 10 stairs. Patient denies loss consciousness, nausea, vomiting, vision change. States that his son drove him to the facility. Reports incident occurring approximately 20 minutes prior to arrival. Patient is not on blood thinners. Denies of headache. No other acute complaints or injuries from the incident. No acute distress noted. Patient aware of the plan of care. Some parts of this dictation were generated by voice recognition software and may contain typographical and/or grammatical inaccuracies. Related Data Home Medications Medication Instructions Recorded Confirmed cholecalciferol (vitamin D3) 50 50 mcg PO DAILY 07/13/20 05/31/22 mcg (2,000 unit) capsule vitamin B complex (B 1 tablet PO EVERY OTHER DAY 07/13/20 05/31/22 Complex-Vitamin B12 tablet) doxepin 10 mg/mL oral concentrate 60 mg PO HS 06/11/21 05/31/22 folic acid 15 mg tablet 0.4 mg PO DAILY 06/11/21 01/12/22 lisinopril 20 mg tablet 20 mg PO QPM 06/28/21 05/31/22 aspirin 81 mg capsule 81 mg PO DAILY 01/12/22 05/31/22 Allergies Allergy/AdvReac Type Severity Reaction Status Date / Time azithromycin AdvReac Intermediate Nausea Verified 05/31/22 09:27 ciprofloxacin AdvReac Unknown Nausea Verified 05/31/22 09:27 SHINGLES IMMUNIZATION Allergy Rash Uncoded 05/31/22 09:27 Review of Systems Review of Systems: CONSTITUTIONAL: Denies fever, chills, or sweats. EYES: Denies visual changes, redness, or discharge. ENT: Denies rhinorrhea, congestion, sore throat, or otalgia. CARDIOVASCULAR: Denies chest pain, palpitations, or edema. RESPIRATORY: Denies cough or dyspnea. GASTROINTESTINAL: Denies abdominal pain, nausea, vomiting, or diarrhea. GENITOURINARY: Denies dysuria or hematuria. SKIN: Reports of a scalp laceration MUSCULOSKELETAL: Denies back pain, joint pain, or myalgia. NEUROLOGIC: Denies headache, numbness, or weakness. All other systems reviewed are negative, except as documented in HPI. [facility] Past Medical History Medical History Benign prostatic hyperplasia Essential (primary) hypertension Generalized anxiety disorder Irritable bowel syndrome Macular degeneration Major depressive disorder, single episode, in partial remission Mitral valve prolapse Mixed hyperlipidemia Surgical History Surgical History History of appendectomy History of cataract extraction History of hydrocelectomy History of tonsillectomy History of total right hip arthroplasty (06/28/21) Family History Family History Mother Family history of hypercholesterolemia Hypertension Family history of cardiovascular disease Family history of schizophrenia Father Family history of cardiovascular disease Malignant neoplasm of prostate Grandparent Family history of cardiovascular disease Family history of hypercholesterolemia Sibling Patient's sister is in good health Family history of alcoholism Patient's brother is Other Family history of kidney stones Family history of mental disorder Social History Social History (Updated 04/07/22 @ 13:38 by Belkis Reeder MA) Social History: Surrogate decision maker: Duyen Hicks, daughter. Code status: Full code. Smoking status: Never smoker Alcohol intake: former Alcohol use details: No alcohol since 21
[2022-05-31 09:30] VITALS: BP 183/95; PULSE 73; RESP 16; TEMP 36.5; O2SAT 98
[2022-05-31] MEDS: TETANUS,DIPHTHERIA,AC PERTUSSIS ADULT (0.5 ML) BOOSTRIX IM (09:46)
== END 2022-05-31 09:52 | disposition home or self-care (01) ==
PROVIDERS: Emergency Provider Nurse Practitioner Family; PCP Family Medicine
DX: S00.01XA Abrasion of scalp, initial encounter (principal); W10.9XXA Fall (on) (from) unspecified stairs and steps, initial encounter; Z23 Encounter for immunization; N40.0 Benign prostatic hyperplasia without lower urinary tract symptoms; I10 Essential (primary) hypertension; H35.30 Unspecified macular degeneration; I34.1 Nonrheumatic mitral (valve) prolapse; E78.2 Mixed hyperlipidemia; Z79.82 Long term (current) use of aspirin; F41.1 Generalized anxiety disorder; F32.9 Major depressive disorder, single episode, unspecified
CPT/HCPCS: 90471; 90715; 99212; G0463

== ENCOUNTER 2022-06-06 15:46 | Emergency (ER) | payer MEDICARE, SELFPAY ==
--- NOTE | ~2022-06-06 | CT_ITS ---
EXAMINATION: CT brain wo con DATE: 06/06/2022 18:28 INDICATION: fall down 10 stairs 05/31, [place] . TECHNIQUE: Computed tomography (CT) of the head was performed without intravenous contrast. The mA wa s adjusted according to patient size. Iterative reconstruction technique was employed. The dose-lengt h product was 605.33 mGy-cm. COMPARISON: 07/11/2019. FINDINGS: No acute intracranial hemorrhage or extra-axial fluid collection. No hydrocephalus, mass, or herniation. No acute ischemic infarct. Unremarkable dural venous sinus attenuation. No acute osseous abnormality. The aerated spaces are clear. Mild atrophy and chronic white matter change. Stable focus of encephalomalacia in the right parietal white matter. Atherosclerotic intracranial calcification. Right lens replacement. IMPRESSION: No acute intracranial process. Reviewed, dictated and finalized at location K. RY SHEAR OPERATOR
--- NOTE | ~2022-06-06 | CT_ITS ---
EXAMINATION: CT pelvis wo con DATE: 06/06/2022 17:46 INDICATION: Left hip pain status post fall. TECHNIQUE: Computed tomography (CT) of the pelvis was performed without intravenous contrast. Automat ed exposure control and iterative reconstruction technique were employed. The dose-length product was 379.18 mGy-cm. COMPARISON: X-ray hip, same date, CT 07/11/2019 FINDINGS: Incompletely visualized but uncomplicated appearing right total hip arthroplasty. Atheroscl erotic arterial calcification. Severe degenerative disc disease at L5-S1, with vacuum phenomenon. Mod erate axial narrowing of the left hip joint space. Considerable subchondral cyst formation on both si jorge luis of the left hip joint. Moderate left hip osteophytosis. No lytic or blastic lesion. No fracture o r dislocation. Diverticulosis without diverticulitis. IMPRESSION: No acute osseous finding in the pelvis. Reviewed, dictated and finalized at location K. ANICAL APPLICATIONS ENGINEER
--- NOTE | ~2022-06-06 | XR_ITS ---
XR lumbar spine 2-3V DATE: 06/06/2022 16:50 INDICATION: Fall. Low back pain. TECHNIQUE: AP, lateral, coned lateral lumbosacral views COMPARISON: 08/29/2018 lumbar spine FINDINGS: Normal alignment of the lumbar spine. No fracture or bone destruction. Included lower thora cic and lumbar pedicles are intact. There is mild degenerative spurring but relative preservation of the lumbar interspaces except for mi ld loss of height at L4-5. There is moderate loss of height at L5-S1 interspace. There is degenerative change at the sacroiliac joints. There is abdominal aortic calcification without evidence of aneurysm. IMPRESSION: Mild to moderate degenerative disc disease Degenerative change of the sacroiliac joints Reviewed, dictated and finalized at location B. NOLOGY ARCHITECT
--- NOTE | ~2022-06-06 | XR_ITS ---
XR hip LT 2V w AP pelvis DATE: 06/06/2022 16:50 INDICATION: Fall. Left hip injury, pain TECHNIQUE: AP pelvis. AP and lateral views of left hip COMPARISON: June 28, 2021 right hip FINDINGS: The pubic symphysis and sacroiliac joints are normally aligned. No pelvic fracture or bone destruction. Status post right total hip arthroplasty. There is severe left hip osteoarthritis including prominent joint space narrowing and spurring. There is a large degenerative cyst of the left femoral head. No fracture or dislocation of the left hip is noted. IMPRESSION: Severe left hip osteoarthritis; no fracture or dislocation of the left hip is detected Status post right total hip arthroplasty Reviewed, dictated and finalized at location B. RANCE CUTTER IMPRESSION: Severe left hip osteoarthritis; no fracture or dislocation of the l eft hip is detected Status post right total hip arthroplasty
[2022-06-06 16:02] VITALS: BP 190/103; PULSE 67; RESP 14; TEMP 36.3; O2SAT 100
--- NOTE | 2022-06-06 17:25 | ED.FALL ---
HPI - Fall General Chief Complaint: Fall Stated Complaint: l hip pain after fall 1 week ago Time Seen by Provider: 06/06/22 16:54 Source: patient Mode of arrival: ambulatory Limitations: no limitations History of Present Illness HPI Narrative: Patient is a 76 y/o male who presents to the ED with c/o L hip pain. Patient reports he fell down a flight of stairs on 05/31. He did hit his head in the accident and sustained a scalp laceration which was repaired at a local urgent care. He denied LOC. He denied having any other pain at that time. He did not receive CT scan of his head. Over the last couple days he began having pain in his left hip and groin. Pain progressively worsened to the point he had pain with ambulation today. He has been taking Tylenol. Pain somewhat radiates into his left lower back. Denies any numbness, lower extremity weakness, abdominal pain, nausea, vomiting, vision changes, dizziness, lightheadedness, confusion, bowel or bladder incontinence. Related Data Home Medications Medication Instructions Recorded Confirmed cholecalciferol (vitamin D3) 50 50 mcg PO DAILY 07/13/20 05/31/22 mcg (2,000 unit) capsule vitamin B complex (B 1 tablet PO EVERY OTHER DAY 07/13/20 05/31/22 Complex-Vitamin B12 tablet) doxepin 10 mg/mL oral concentrate 60 mg PO HS 06/11/21 05/31/22 folic acid 15 mg tablet 0.4 mg PO DAILY 06/11/21 01/12/22 lisinopril 20 mg tablet 20 mg PO QPM 06/28/21 05/31/22 aspirin 81 mg capsule 81 mg PO DAILY 01/12/22 05/31/22 Allergies Allergy/AdvReac Type Severity Reaction Status Date / Time azithromycin AdvReac Intermediate Nausea Verified 06/06/22 16:33 ciprofloxacin AdvReac Unknown Nausea Verified 06/06/22 16:33 SHINGLES IMMUNIZATION Allergy Rash Uncoded 06/06/22 16:33 Review of Systems Review of Systems: CONSTITUTIONAL: Denies fever, chills, or sweats. EYES: Denies visual changes. CARDIOVASCULAR: Denies chest pain, palpitations, or edema. RESPIRATORY: Denies cough or dyspnea. GASTROINTESTINAL: Denies abdominal pain, nausea, vomiting, or diarrhea. MUSCULOSKELETAL: See HPI. NEUROLOGIC: See HPI. All systems reviewed & are unremarkable except as noted in HPI and below PMFSH Past Medical History Medical History Benign prostatic hyperplasia Essential (primary) hypertension Generalized anxiety disorder Irritable bowel syndrome Macular degeneration Major depressive disorder, single episode, in partial remission Mitral valve prolapse Mixed hyperlipidemia Surgical History Surgical History History of appendectomy History of cataract extraction History of hydrocelectomy History of tonsillectomy History of total right hip arthroplasty (06/28/21) Family History Family History Mother Family history of hypercholesterolemia Hypertension Family history of cardiovascular disease Family history of schizophrenia Father Family history of cardiovascular disease Malignant neoplasm of prostate Grandparent Family history of cardiovascular disease Family history of hypercholesterolemia Sibling Patient's sister is in good health Family history of alcoholism Patient's brother is Other Family history of kidney stones Family history of mental disorder Social History Social History Social History: Surrogate decision maker: Duyen Hicks, daughter. Code status: Full code. Smoking status: Never smoker Alcohol intake: former Alcohol use details: No alcohol since 1973. Substance use: never Substance use type: does not use Lack of Food: Never True Current Housing: Decline to Answer Concerned About Future Housing: No Difficulty Paying Gas/Electric Bills: No Difficulty Paying for Meds: No Currently Unemployed: Decline to Answer
== END 2022-06-06 18:55 | disposition home or self-care (01) ==
PROVIDERS: Emergency Provider Physician Assistant; PCP Family Medicine
DX: S76.012A Strain of muscle, fascia and tendon of left hip, initial encounter (principal); I10 Essential (primary) hypertension; I34.1 Nonrheumatic mitral (valve) prolapse; E78.2 Mixed hyperlipidemia; H35.30 Unspecified macular degeneration; K58.9 Irritable bowel syndrome, unspecified; F41.1 Generalized anxiety disorder; F32.4 Major depressive disorder, single episode, in partial remission; Z79.82 Long term (current) use of aspirin; Z98.49 Cataract extraction status, unspecified eye; Z96.641 Presence of right artificial hip joint; M16.12 Unilateral primary osteoarthritis, left hip; W10.9XXA Fall (on) (from) unspecified stairs and steps, initial encounter
CPT/HCPCS: 70450; 72100; 72192; 73502; 99284

== ENCOUNTER 2022-08-25 01:37 | Day surgery (SDC) | payer MEDICARE, SELFPAY ==
[2022-08-12 12:39] VITALS: BMI 28.0
[2022-08-25 09:35] VITALS: BP 157/100; PULSE 63; RESP 18; TEMP 36; O2SAT 97; BMI 27.6
[2022-08-25] MEDS: LACTATED RINGERS 1,000 ML 150 ML IV CONT (09:59)
--- NOTE | 2022-08-25 10:31 | WPDANESEPPF ---
Anes - Initial Pre Proc Eval Procedure: Operation Date: 08/25/22 11:00 Proposed Procedures p Colonoscopy - Nelson Estrada MD Date/Time: 08/25/22 10:31 Surgeon: Nelson Estrada MD Pre Op Diagnosis: hx colon polyps Patient Data Age: 77 Gender: M Height: 1.8 m Weight: 89.8 kg Last Vital Signs Temp 96.8 F L 08/25/22 09:35 Pulse 63 08/25/22 09:35 Resp 18 08/25/22 09:35 BP 157/100 H 08/25/22 09:35 Pulse Ox 97 08/25/22 09:35 O2 Del Method Room Air 08/25/22 09:35 Allergies Allergy/AdvReac Type Severity Reaction Status Date / Time azithromycin AdvReac Intermediate Nausea Verified 08/25/22 09:48 ciprofloxacin AdvReac Unknown Nausea Verified 08/25/22 09:48 SHINGLES IMMUNIZATION Allergy Rash Uncoded 08/25/22 09:48 Home Medications Medication Instructions Recorded Confirmed Type cholecalciferol (vitamin D3) 50 50 mcg PO DAILY 07/13/20 08/25/22 History mcg (2,000 unit) capsule vitamin B complex (B 1 tablet PO EVERY OTHER DAY 07/13/20 08/25/22 History Complex-Vitamin B12 tablet) doxepin 10 mg/mL oral concentrate 60 mg PO HS 06/11/21 08/25/22 History folic acid 15 mg tablet 0.4 mg PO DAILY 06/11/21 08/25/22 History polyethylene glycol 3350 17 gram 17 g PO QAM #30 ea 06/29/21 08/25/22 Rx oral powder packet (Miralax) bupropion HCl 150 mg 24 hr tablet, See Rx Instructions .Route 09/20/21 08/25/22 Rx extended release .COMPLEX #90 tabs meloxicam 15 mg tablet See Rx Instructions .Route 10/25/21 08/25/22 Rx .COMPLEX #90 tabs buspirone 10 mg tablet See Rx Instructions .Route 01/04/22 08/25/22 Rx .COMPLEX #180 tabs aspirin 81 mg capsule 81 mg PO DAILY 01/12/22 08/25/22 History Bystolic 20 mg tablet (nebivolol) See Rx Instructions .Route 03/07/22 08/25/22 Rx .COMPLEX #90 tabs quetiapine 25 mg tablet See Rx Instructions .Route 03/17/22 08/25/22 Rx .COMPLEX #180 tabs lisinopril 20 mg tablet 20 mg PO QPM #90 tabs 07/18/22 08/25/22 Rx sodium,potassium,mag sulfates 17.5 See Rx Instructions PO .COMPLEX 08/05/22 08/25/22 Rx gram-3.13 gram-1.6 gram oral soln #354 mL (Suprep Bowel Prep Kit) famotidine 40 mg tablet 40 mg PO DAILY 08/12/22 08/25/22 History Patient hx anesthesia problems: none Family hx anesthesia problems: none Results Review: All pre-operative results and documents have been reviewed as part of the pre-operative evaluation. [facility] Past Medical History Medical History Benign prostatic hyperplasia Essential (primary) hypertension Generalized anxiety disorder Irritable bowel syndrome Macular degeneration Major depressive disorder, single episode, in partial remission Mitral valve prolapse Mixed hyperlipidemia Surgical History Surgical History History of appendectomy History of cataract extraction History of hydrocelectomy History of tonsillectomy History of total right hip arthroplasty (06/28/21) Family History Family History Mother Family history of hypercholesterolemia Hypertension Family history of cardiovascular disease Family history of schizophrenia Father Family history of cardiovascular disease Malignant neoplasm of prostate Grandparent Family history of cardiovascular disease Family history of hypercholesterolemia Sibling Patient's sister is in good health Family history of alcoholism Patient's brother is Other Family history of kidney stones Family history of mental disorder Social History Social History Social History: Surrogate decision maker: Duyen Hicks, daughter. Code status: Full code. Smoking status: Never smoker Alcohol intake: former Alcohol use details: No alcohol since 1973. Substance use: never Substance use type: does not use Lack of Food: Never True
--- NOTE | 2022-08-25 10:32 | PM.HPGS ---
History of Present Illness History of Present Illness Consent: Risks, benefits, and alternatives have been discussed and questions answered. Patient agrees to proceed with procedure. Chief complaint: hx colon polyps Narrative: Sher Hicks is a 77 year old male Presents for screening colonoscopy. Patient does have a prior history of colon polyps. Most recent colonoscopy 2015 was unremarkable. Patient reports a tendency towards constipation with occasional rectal pain attributed to hemorrhoids. Patient's family history is noncontributory. Patient has a history of esophageal web with subsequent dysphagia that improved after dilatation last year. Patient presents today for screening colonoscopy. Review of Systems Review of Systems: Review of systems is noncontributory. [facility] Past Medical History Medical History Benign prostatic hyperplasia Essential (primary) hypertension Generalized anxiety disorder Irritable bowel syndrome Macular degeneration Major depressive disorder, single episode, in partial remission Mitral valve prolapse Mixed hyperlipidemia Surgical History Surgical History History of appendectomy History of cataract extraction History of hydrocelectomy History of tonsillectomy History of total right hip arthroplasty (06/28/21) Family History Family History Mother Family history of hypercholesterolemia Hypertension Family history of cardiovascular disease Family history of schizophrenia Father Family history of cardiovascular disease Malignant neoplasm of prostate Grandparent Family history of cardiovascular disease Family history of hypercholesterolemia Sibling Patient's sister is in good health Family history of alcoholism Patient's brother is Other Family history of kidney stones Family history of mental disorder Social History Social History Social History: Surrogate decision maker: Duyen Hicks, daughter. Code status: Full code. Smoking status: Never smoker Alcohol intake: former Alcohol use details: No alcohol since 1973. Substance use: never Substance use type: does not use Lack of Food: Never True Current Housing: Decline to Answer Concerned About Future Housing: No Difficulty Paying Gas/Electric Bills: No Difficulty Paying for Meds: No Currently Unemployed: Decline to Answer Education: Decline to Answer Difficulty w/ Childcare or Family Care: Decline to Answer Living arrangements: with family Additional living arrangements comments: . Two grown children. 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 Spiritual care concerns: No Meds Home Medications and Allergies Home Medications Medication Instructions Recorded Confirmed Type cholecalciferol (vitamin D3) 50 50 mcg PO DAILY 07/13/20 08/25/22 History mcg (2,000 unit) capsule vitamin B complex (B 1 tablet PO EVERY OTHER DAY 07/13/20 08/25/22 History Complex-Vitamin B12 tablet) doxepin 10 mg/mL oral concentrate 60 mg PO HS 06/11/21 08/25/22 History folic acid 15 mg tablet 0.4 mg PO DAILY 06/11/21 08/25/22 History polyethylene glycol 3350 17 gram 17 g PO QAM #30 ea 06/29/21 08/25/22 Rx oral powder packet (Miralax) bupropion HCl 150 mg 24 hr tablet, See Rx Instructions .Route 09/20/21 08/25/22 Rx extended release .COMPLEX #90 tabs meloxicam 15 mg tablet See Rx Instructions .Route 10/25/21 08/25/22 Rx .COMPLEX #90 tabs buspirone 10 mg tablet See Rx Instructions .Route 01/04/22 08/25/22 Rx .COMPLEX #180 tabs aspirin 81 mg capsule 81 mg PO DAILY 01/12/22 08/25/22 History Bystolic 20 mg tablet (nebivolol) See Rx Instructions .Route 03/07/22
[2022-08-25 11:22] VITALS: BP 126/75; PULSE 53; RESP 17; O2SAT 98
[2022-08-25 11:32] VITALS: BP 167/92; PULSE 56; RESP 20; O2SAT 100
[2022-08-25 11:42] VITALS: BP 156/98; PULSE 54; RESP 16; O2SAT 100
== END 2022-08-25 11:52 | disposition home or self-care (01) ==
PROVIDERS: PCP Family Medicine; Visit Provider Internal Medicine Gastroenterology
PROC: 0DJD8ZZ Inspection of Lower Intestinal Tract, Via Natural or Artificial Opening Endoscopic (ICD-10-PCS; CPT 45378; principal; 2022-08-25 11:00)
DX: Z12.11 Encounter for screening for malignant neoplasm of colon (principal); K64.8 Other hemorrhoids; K57.30 Diverticulosis of large intestine without perforation or abscess without bleeding; Z86.010 Personal history of colon polyps; I10 Essential (primary) hypertension; E78.2 Mixed hyperlipidemia; I34.1 Nonrheumatic mitral (valve) prolapse; N40.0 Benign prostatic hyperplasia without lower urinary tract symptoms; F41.1 Generalized anxiety disorder; K58.9 Irritable bowel syndrome, unspecified; F32.4 Major depressive disorder, single episode, in partial remission; H35.30 Unspecified macular degeneration; Z79.82 Long term (current) use of aspirin
CPT/HCPCS: G0105; J2704; J7120

== ENCOUNTER 2022-12-16 11:21 | Emergency (ER) | payer MEDICARE, SELFPAY ==
--- NOTE | ~2022-12-16 | XR_ITS ---
Clinical Indication: Chest trauma PA and lateral views of the chest: Comparison: 09/04/2018 Findings: The lungs are clear, without evidence of focal consolidation or pleural effusion. Cardiome diastinal silhouette is within normal limits. Bones and soft tissues are unremarkable. Impression: Normal chest. Reviewed, dictated and finalized at location . Impression: Normal chest.
[2022-12-16 11:36] VITALS: BP 173/111; PULSE 75; RESP 16; TEMP 36.3; O2SAT 97
--- NOTE | 2022-12-16 11:38 | ED.GENADULT ---
HPI - General Adult General Chief complaint: Unspecified Stated complaint: CHEST INJURY Time Seen by Provider: 12/16/22 11:40 Source: patient, RN notes reviewed and old records reviewed Mode of arrival: ambulatory Limitations: no limitations History of Present Illness HPI narrative: 77 year old male who presents to [facility] care with complaints of sawing a piece of wood on a table saw just prior to arrival and it suddenly kicked back and hit him in his right upper chest area above his breast and he states that he has soreness to area and wants to make sure he didn't crack a rib. Patient has no redness or bruising to his right upper chest area or any swelling, patient denies any shortness of breath with no tachypnea or any accessory. MD complaint: piece of board hit him in right chest Onset (ago): hour(s) (within past 1) Location: chest (right chest) Severity scale (1-10): 3 Quality: aching Treatments prior to arrival: none Related Data Home Medications Medication Instructions Recorded Confirmed cholecalciferol (vitamin D3) 50 50 mcg PO DAILY 07/13/20 11/28/22 mcg (2,000 unit) capsule folic acid 15 mg tablet 0.4 mg PO DAILY 06/11/21 11/28/22 aspirin 81 mg capsule 81 mg PO DAILY 01/12/22 11/28/22 famotidine 40 mg tablet 40 mg PO DAILY 08/12/22 11/28/22 Allergies Allergy/AdvReac Type Severity Reaction Status Date / Time azithromycin AdvReac Intermediate Nausea Verified 11/28/22 11:02 ciprofloxacin AdvReac Unknown Nausea Verified 11/28/22 11:02 SHINGLES IMMUNIZATION Allergy Rash Uncoded 11/28/22 11:02 Review of Systems Review of Systems: CONSTITUTIONAL: Denies fever, chills, or sweats. EYES: Denies visual changes, redness, or discharge. ENT: Denies rhinorrhea, congestion, sore throat, or otalgia. CARDIOVASCULAR: Denies any acute chest pain, palpitations, or edema.reports soreness to right upper chest RESPIRATORY: Denies cough or dyspnea. GASTROINTESTINAL: Denies abdominal pain, nausea, vomiting, or diarrhea. GENITOURINARY: Denies dysuria or hematuria. SKIN: Denies rash or itching. MUSCULOSKELETAL: Denies back pain, joint pain, or myalgia. NEUROLOGIC: Denies headache, numbness, or weakness. PSYCHIATRIC: positive for history of anxiety or depression. All systems reviewed & are unremarkable except as noted in HPI and below PMFSH Past Medical History Medical History Benign prostatic hyperplasia Essential (primary) hypertension Generalized anxiety disorder Irritable bowel syndrome Macular degeneration Major depressive disorder, single episode, in partial remission Mitral valve prolapse Mixed hyperlipidemia Surgical History Surgical History History of appendectomy History of cataract extraction History of hydrocelectomy History of tonsillectomy History of total right hip arthroplasty (06/28/21) Family History Family History Mother Family history of hypercholesterolemia Hypertension Family history of cardiovascular disease Family history of schizophrenia Father Family history of cardiovascular disease Malignant neoplasm of prostate Grandparent Family history of cardiovascular disease Family history of hypercholesterolemia Sibling Patient's sister is in good health Family history of alcoholism Patient's brother is Other Family history of kidney stones Family history of mental disorder Social History Social History Social History: Surrogate decision maker: Duyen Hicks, daughter. Code status: Full code. Smoking status: Never smoker Alcohol intake: former Alcohol use details: No alcohol since 1973. Substance use: never Substance use type: does not use Lack of Food: Never True Current Housing: Decline to Answer Concerned About Future Housing: No Dif
[2022-12-16 12:26] VITALS: BP 172/94
== END 2022-12-16 12:41 | disposition home or self-care (01) ==
PROVIDERS: Emergency Provider Registered Nurse; PCP Family Medicine
DX: R07.89 Other chest pain (principal); N40.0 Benign prostatic hyperplasia without lower urinary tract symptoms; I10 Essential (primary) hypertension; H35.30 Unspecified macular degeneration; Z79.82 Long term (current) use of aspirin
CPT/HCPCS: 71046; 99213; G0463

== ENCOUNTER 2022-12-22 08:40 | Outpatient (CLI) | payer MEDICARE, SELFPAY ==
--- NOTE | 2023-01-03 19:26 | WPDHOMESLEEP ---
Sleep Study - Home Unattended Date of Study: 12/22/22 Ordering Provider: Adriano Sosa MD Interpreting Provider: Rozina House, DO Home Sleep Study Type: Apnea Link Air Height: 1.78 m Weight: 90.718 kg Body Mass Index: 28.7 Neck Circumference (inches): 16 [place]: 3 Reason for Sleep Study Difficulty falling and staying asleep Sleep History The patient is a 77-year-old male with depression, anxiety, benign prostatic hyperplasia, hypertension, irritable bowel syndrome, macular degeneration, mitral valve prolapse, mixed hyperlipidemia and GERD that had a sleep study ordered by his primary care physician evaluation of sleep disturbances. 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 He denies awakening from sleep short of breath. He occasionally awakens at night with heartburn, belching or cough. He rarely has trouble sleeping when he has a cold. He rarely wakes up gasping for air throughout the night. He frequently has breathing problems at night observed by himself or others. He rarely sweats excessively at night. He rarely has heart palpitations or irregular heartbeats during the night. He rarely falls asleep during the day and never falls asleep while driving. He rarely experiences loss of muscle tone when extremely emotional. He occasionally has trouble at school or work due to sleepiness. He denies feeling unable to move while waking up or falling asleep. He occasionally experiences vivid dreamlike scenes upon awakening or falling asleep. He rarely feels afraid of going to sleep. He rarely has nightmares and occasionally remembers his dreams. He occasionally has thoughts racing through his mind. He frequently feels sad or depressed and constantly has anxiety. He frequently has muscular tension. He rarely notices parts of his body jerk. He rarely kicks during the night. He occasionally has crawling and aching feelings in his legs and rarely has leg pain during the night. He denies awakening with morning jaw pain. He is frequently bothered by pain during the day and frequently awakened by pain during the night. He frequently wakes up feeling stiff in the morning. He occasionally wakes up with sore or achy muscles. He constantly wakes up with pain in the neck, spine or other joints. He goes to bed at 9:30 p.m. on both weekdays and weekends. It takes him 1-2 hours to fall asleep. He wakes up 2-3 times throughout the night to urinate and he can either fall back asleep within 5 minutes or he may stay up the rest of the night. He wakes up at 6:00 a.m. on both weekdays and weekends. He typically gets hours of sleep per night. He denies staying in bed after waking up in the morning. He does not consume any caffeinated beverages within 2 hours of bedtime. He does not engage in physical exercise before bedtime. He denies reading and watching television before falling asleep. He denies taking naps in the afternoon or the evening. He consumes 2 caffeinated beverages per day. He denies tobacco, alcohol and recreational drug use. [facility] Past Medical History Medical History Benign prostatic hyperplasia Essential (primary) hypertension Generalized anxiety disorder Irritable bowel syndrome Macular degeneration Major depressive disorder, single episode, in partial remission Mitral valve prolapse Mixed hyperlipidemia Surgical History Surgical History History of appendectomy History of cataract extraction History of hydrocelectomy History of tonsillectomy History of total right hip arthroplasty (06/28/21) Family History Family History Mother Family history of hypercholesterolemia Hypertension Family history of cardiovascular disease Family history of schizophrenia Father Family history of cardiovascular disease Malignant neoplasm of prosta
[2023-01-03 19:34] VITALS: BMI 28.7
== END 2022-12-29 11:39 | disposition home or self-care (01) ==
PROVIDERS: PCP Family Medicine; Visit Provider Family Medicine
DX: G47.30 Sleep apnea, unspecified (principal)
CPT/HCPCS: 95806

== ENCOUNTER 2024-03-28 07:53 | Outpatient (CLI) | payer MEDICARE, SELFPAY ==
[2024-03-28 09:38] LABS: Basophils Absolute Auto 0.1 K/mm3 (0.0-0.1); Basophils Percent Auto 1.1 % (0.2-1.2); Eosinophils Absolute Auto 0.2 K/mm3 (0-0.3); Eosinophils Percent Auto 3.8 % (0-4.4); Hematocrit 41.2 % (42.0-52.0); Hemoglobin 13.8 g/dL (14.0-18.0); Immature Granulocyte Absolute 0.06 K/mm3 (0.00-0.031); Lymphocytes Absolute Auto 1.32 K/mm3 (0.9-3.2); Lymphocytes Percent Auto 21.6 % (18.3-44.2); Mean Corpuscular HGB Conc 33.5 g/dl (32-36); Mean Corpuscular Volume 83.7 fl (80-100); Monocytes Absolute Auto 0.7 K/mm3 (0.1-0.6); Monocytes Percent Auto 10.7 % (2.6-8.5); Neutrophils Absolute Auto 3.8 K/mm3 (1.3-6.7); Neutrophils Percent Auto 61.8 % (45.5-73.1); Platelet Count Result 337 k/mm3 (150-375); Red Blood Count 4.92 M/mm3 (4.6-6.20); Red Cell Distribution Width 12.6 % (11.5-14.5); White Blood Count 6.1 K/mm3 (4.5-10.0)
[2024-03-28 09:53] LABS: Alanine Aminotransferase 14 U/L (6-50); Albumin Level 4.1 g/dL (3.5-5.1); Alkaline Phosphatase 108 U/L (38-126); Anion Gap 6 mmol/L (4-12); Aspartate Amino Transferase 17 U/L (17-59); Bilirubin,Total 0.6 mg/dL (0.2-1.3); Blood Urea Nitrogen 14 mg/dL (9-20); Calcium 9.2 mg/dL (8.4-10.2); Carbon Dioxide 31 mmol/L (22-30); Chloride 96 mmol/L (98-107); Cholesterol 232 mg/dL (0-200); Estimated Glomerular Filt Rate > 60; Glucose 95 mg/dL (65-110); HDL Direct 45 mg/dL; Sodium 133 mmol/L (137-145); Triglycerides 111 mg/dL (<150)
[2024-03-28 10:10] LABS: LDL Cholesterol Direct 142 mg/dL
[2024-03-28 10:28] LABS: Hemoglobin A1C 5.5 % (<5.7)
== END 2024-03-28 07:54 | disposition home or self-care (01) ==
LOC: ANHGOSHLAB 07:56
PROVIDERS: PCP Family Medicine; Visit Provider Family Medicine
DX: E78.5 Hyperlipidemia, unspecified (principal)
CPT/HCPCS: 36415; 80053; 80061; 83036; 84443; 85025

== ENCOUNTER 2024-06-27 00:28 | Day surgery (SDC) | payer MEDICARE, SELFPAY ==
[2024-06-25 08:34] VITALS: BMI 28.7
--- OUTSIDE RECORDS SUMMARY | 2024-06-27 00:31 | XMS_ITS | Clinical Summary ---
Author Organization [facility] Address [address] [place] [address] Phone Care Team Providers Care Under Water Assistant Name Role Phone Adriano Sosa MD Primary Care Provider [phone] Social History Tobacco Use Types Packs/Day Years Used Date Smoking Tobacco: Never Assessed Sex and Gender Information Value Date Recorded Sex Assigned at Not on file Legal Sex Male 10:26 AM CDT Gender Identity Not on file Sexual Orientation Not on file Plan of Treatment Health Maintenance Due Date Last Done Comments Hepatitis C Virus (HCV) Screening 1945 TdaP Immunization 1945 Pneumococcal Immunization (5 0+ years) (1 of 1 - PCV) 1997 Zoster Immunization (2 of 2) 11/05/2017 09/10/2017 Respiratory Syncytial Virus (RSV) Immunization (Adult) (1 - 1-dose 75+ series) 2022 Influenza Immunization (#1) 2024 03/03/2020 SARS-COV-2 Immunization ( season) 2024 02/15/2021, 08/06/2020, 07/14/2020 Hepatitis B Immunization Aged Out No longer eligible based on patient's age to complete this topic Meningococcal Immunization (ACWY) Aged Out No longer eligible b ased on patient's age to complete this topic Rotavirus Immunization Aged Out No lo nger eligible based on patient's age to complete this topic Insurance MEDICARE [facility] Care Teams Under Water Assistant Relationship Specialty Start Date End Date Adriano Sosa MD [address] [place] [address] [address] [place], [place] [id number] PCP - General Family Medicine 02/29/16
--- OUTSIDE RECORDS SUMMARY | 2024-06-27 00:31 | XMS_ITS | Referral Summary ---
Author Organization [facility] [address] Address [address] [place] [address] Care Team Providers Care Information Technology Security Manager Name Role Phone Adriano Sosa MD Primary Care Provider [phone] Allergies Active Allergy Reactions Criticality Noted Date Comments Azithromycin Syncope,Nausea only High Ciprofloxacin Nausea only Low 10/25/2021 Medications aspirin 81 mg enteric coated tablet Take 1 tablet (81 mg total) by mouth daily Active lisinopril (PRINIVIL,ZESTR IL) 20 mg tablet Take 1 tablet (20 mg total) by mouth daily Active nebivolol (BYSTOLIC) 20 mg tablet Take 1 tablet (20 mg total) by mouth daily Active ALPRAZolam (XANAX) 0.25 mg tablet Take 0.25 mg by mouth daily Active Bifidobacterium infantis (ALIGN) 4 mg capsule 4 mg Active famotidine (PEPCID) 40 mg tablet Take 1 tablet (40 mg total) by mouth daily Active doxepin (SINEquan) 10 mg capsule Take 6 capsules (60 mg total) by mouth daily Active cholecalciferol , vitamin D3, (VITAMIN D3 ORAL) Take by mouth daily Active QUEtiapine (SEROquel) 25 mg tablet Take 1 tablet (25 mg total) by mouth 2 (two) times a day Active methylphenidate HCl (RITALIN) 10 mg tablet Take 10 mg by mouth daily Active buPROPion XL (WELLBUTRIN XL) 150 mg 24 hr tablet Take 1 tablet (150 mg total) by mouth every morning 1 Active multivitamin tablet daily Active meloxicam (MOBIC) 15 mg tablet Take 1 tablet (15 mg total) by mouth daily 11/01/202 1 Active polyethylene glycol 3350 (MIRALAX ORAL) Activ e rosuvastatin (CRESTOR) 5 mg tabletIndicatio ns:Hypercholest eremia Take one pill every other day 15 tablet 3 1 Active Additional Information Patient not taking.Reported on 10/25/2021 levomefolate-al gal oil 15-90.314 mg capsule L-Methylfolate Forte 15 mg-90.314 mg capsule Take by oral route. Active vitamin b complex tablet Take 1 tablet by mouth every other day Active busPIRone (BUSPAR) 5 mg tabletIndicatio ns:Generalized Anxiety Disorder Take 1 tablet (5 mg total) by mouth 2 (two) times a day as needed Active finasteride (PROSCAR) 5 mg tablet Take 5 mg by mouth daily Active UNABLE TO FIND METHYLATED FOLATE 15 MG DAILY Active Active Problems Problem Noted Date Diagnosed Date Occipital neuralgia 01/17/2023 Assessment & Plan (01/17/2023 12:25 PM CDT): Mr. Hicks has headaches and shooting pain with point tenderness along the occipital nerves that reproduces his symptoms. 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 We will refer him to Dr. Soto for evaluation and possible injections. We will not set up a scheduled appointment, but I am happy to see him back at any point on as-needed basis. 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 Hicks has chronic neck pain without radicular symptoms related to his mild cervical kyphosis. He did not get any long-term relief with physical therapy. I do not think that he would benefit from surgical intervention on his neck. Assessment & Plan (03/06/2019 4:15 PM CDT): Mr. Hicks has cervicalgia without any motor weakness. He has spondylosis at multiple levels including C3-4 bilaterally, C4-5 on the left and C6-7 bilaterally. We discussed different options including medications, therapy, injections and surgery. At this point I would recommend continued conservative treatment. We will not set up a scheduled appointment, but I would be happy to see him back at any point on as-needed basis. 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 His clinical symptoms are consistent right C5 radiculopathy without motor weakness. Discussed that all options are open to him at this point. We will give him a script for physical therapy for neck stretching and strengthening exercises. I plan to see him back in 4 months for re- evaluation no new films at that time. Will hold off on MRI imaging for now. He wishes to progress toward its injections or surgery, he would likely need an MRI of the cervical spine to better define his compressive pathology. Resolved Problems Problem Noted Date Diagnosed Date Resolved Date Preop cardiovascular exam 04/19/2021 Social History Tobacco Use Types Packs/Day Years Used Date Smoking Tobacco: Never Tobacco Cessation:Counseling Given: Not Answered Alcohol Use Standard Drinks/Week Comments Never 0 (1 standard drink = 0.6 oz pur e alcohol) AUDIT-C Answer Date Recorded Frequency of Alcohol Consumption Never 03/06/2019 Average Number of Drinks Not on file 019 Frequency of Binge Drinking Not on file 02/19 PHQ-2 Answer Date Recorded PHQ-2 Score 3 03/06/2019 Sex and Gender Information Value Date Recorded Sex Assigned at Not on file Legal Sex Male 12:21 AM DOOR PERSON Gender Identity Not on file Sexual Orientation Not on file 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 Not on file Not on fi le Last Filed Vital Signs Vital Sign Reading Time Taken Comments Blood Pressure 174/92 06/26/2023 10:52 AM DOOR PERSON Pulse 80 06/26/2023 10:52 AM DOOR PERSON Temperature - - Respiratory Rate 14 01/17/2023 11:4 8 AM CDT Oxygen Saturation 96% 06/26/2023 10: 52 AM DOOR PERSON Inhaled Oxygen Concentration - - Weight 95.2 kg (209 lb 14.4 oz) 02/05/2 024 10:52 AM DOOR PERSON Height 177.8 cm (5' 10 ) 06/26/2023 10: 52 AM DOOR PERSON Body Mass Index 30.12 06/26/2023 10:52 AM DOOR PERSON Plan of Treatment Not on file Insurance MEDICARE [facility] MEDICARE BLUE CROSS MEDICARE SUPPLEMENT MEDICARE [facility] Care Teams Information Technology Security Manager Relationship Specialty Start Date End Date Adriano Sosa MD PCP - General 09/12/06
--- OUTSIDE RECORDS SUMMARY | 2024-06-27 00:31 | XMS_ITS | Encounter Summary ---
Author Organization [facility] Address [address] [place] [address] Care Team Providers Care Product Development Chemist Name Role Phone Unavailable Primary Care Provider Unavailabl e Encounter Details Date Type Department Care Team (Late st Contact Info) Description 06/25/2024 External Device Data [facility] ABSTRACTION Provider, Abstract NO ADDRESS ON FILE Social History Tobacco Use Types Packs/Day Years Used Date Smoking Tobacco: Never Assessed Sex and Gender Information Value Date Recorded Sex Assigned at Not on file Legal Sex Male 6:44 PM CDT Gender Identity Not on file Sexual Orientation Not on file documented as of this encounter Plan of Treatment Not on file documented as of this encounter Visit Diagnoses Not on filedocumented in this encounter
--- OUTSIDE RECORDS SUMMARY | 2024-06-27 00:31 | XMS_ITS | Clinical Summary ---
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 [...] Date Resolved Date Preop cardiovascular exam 04/19/2021 Surgical History Surgery Date Site/Laterality Comments APPENDECTOMY 05/22/1957 - 05/21/1958 s/p rupture UPPER GASTROINTESTINAL ENDOSCOPY 05/22/2011 - 05/21/2012 EXCISION / REPAIR HYDROCELE PEDIATRIC 05/22/1953 - 05/21/1954 Medical History Medical History Date Comments Personal history of other di seases of the circulatory system History of hypertension - (A dded by TW Conv) Anxiety disorder Anxiety - (Adde d by TW Conv) Personal history of other en docrine, nutritional and metabolic disease History of hyperchol esterolemia - (Added by TW Conv) Personal history of other me ntal and behavioral disorders History of depression - (Add ed by TW Conv) Allergic rhinitis Allergic rhini tis - (Added by TW Conv) History of head injury Vertigo Sleeping difficulty Arthritis Fibromyalgia Acid reflux Hypertension Anxiety Hyperlipidemia Family History Medical History Relation Name Comments Alcohol abuse Brother 1 Alcohol abuse Brother 2 Asperger's syndrome Father Heart disease Father Prostate cancer Father Heart disease Maternal Grandmother Hyperlipidemia Maternal Grandmother Heart disease Mother Family history of cardiac disorder - (Added by TW Conv) Hyperlipidemia Mother Hypertension Mother Paranoid behavior Mother Schizophrenia Mother Fibromyalgia Sister 1 Fibromyalgia Sister 2 Relation Name Status Comments Brother 1 Brother 2 Father Maternal Grandmother Mother Sister 1 Sister 2 Social History Tobacco Use Types Packs/Day Years [...] on file Legal Sex Male 12:21 AM PROJECT CONTROLS SPECIALIST Gender Identity Not on file Sexual Orientation Not on file 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 Not on fi le Obstetrics History Last Filed Vital Signs Vital Sign Reading Time Taken Comments Blood Pressure 174/92 06/26/2023 10:52 AM PROJECT CONTROLS SPECIALIST Pulse 80 06/26/2023 10:52 AM PROJECT CONTROLS SPECIALIST Temperature - - Respiratory Rate 14 01/17/2023 11:4 8 AM CDT Oxygen Saturation 96% 06/26/2023 10: 52 AM PROJECT CONTROLS SPECIALIST Inhaled Oxygen Concentration - - Weight 95.2 kg (209 lb 14.4 oz) 024 10:52 AM PROJECT CONTROLS SPECIALIST Height 177.8 cm (5' 10 ) 06/26/2023 10: 52 AM PROJECT CONTROLS SPECIALIST Body Mass Index 30.12 06/26/2023 10:52 AM PROJECT CONTROLS SPECIALIST Plan of Treatment Health Maintenance Due Date Last Done Comments Fall Risk Assessment 1945 Hepatitis C Screening 1945 DTaP/Tdap/Td Vaccine (1 - Tdap) 1958 Hepatitis B Screening 1965 Pneumococcal vaccine 65+ (1 of 1 - PCV) 2012 Well Visit 65+ 2012 Zoster Vaccine (2 of 2) 11/05/2017 09/10/2017 Depression Screening 03/06/2020 03/06/2019, 03/06/20 19 Influenza Vaccine (#1) 2024 Insurance MEDICARE [facility] MEDICARE BLUE CROSS MEDICARE SUPPLEMENT MEDICARE [facility] Care Teams Crate Maker Relationship Specialty Start Date End Date Adriano Sosa MD PCP - General 09/12/06
[2024-06-27 06:29] VITALS: BP 219/90; PULSE 70; RESP 18; TEMP 36.2; O2SAT 99; BMI 29.0
[2024-06-27] MEDS: LACTATED RINGERS 1,000 ML 150 ML IV CONT (06:40)
--- NOTE | 2024-06-27 07:03 | P.PNAN_ITS ---
Anes - Initial Pre Proc Eval Procedure: Operation Date: 06/27/24 07:30 Proposed Procedures p Esophagogastroduodenoscopy - Morales Villafana MD Date/Time: 06/27/24 07:03 Surgeon: Morales Villafana MD Pre Op Diagnosis: esophageal obstruction Patient Data Age: 79 Gender: M Height: 1.78 m Weight: 91.6 kg Last Vital Signs Temp 36.2 C L 06/27/24 06:29 Pulse 70 06/27/24 06:29 Resp 18 06/27/24 06:29 BP 219/90 H 06/27/24 06:29 Pulse Ox 99 06/27/24 06:29 O2 Del Method Room Air 06/27/24 06:29 Allergies Allergy/AdvReac Type Severity Reaction Status Date / Time azithromycin AdvReac Intermediate Nausea Verified 06/27/24 06:25 ciprofloxacin AdvReac Unknown Nausea Verified 06/27/24 06:25 SHINGLES IMMUNIZATION Allergy Rash Uncoded 06/27/24 06:25 Home Medications ?Medication ?Instructions ?Recorded ?Confirmed ?Type cholecalciferol (vitamin D3) 50 50 mcg PO DAILY 07/13/20 06/27/24 History mcg (2,000 unit) capsule folic acid 15 mg tablet 0.4 mg PO DAILY 06/11/21 06/27/24 History polyethylene glycol 3350 17 gram 17 g PO QAM #30 ea 06/29/21 06/25/24 Rx oral powder packet (Miralax) aspirin 81 mg capsule 81 mg PO DAILY 01/12/22 06/27/24 History nebivolol 20 mg tablet 20 mg PO DAILY #90 tabs 02/26/24 06/27/24 Rx doxepin 10 mg/mL oral concentrate 60 mg (6 mL) PO HS #540 mL 02/27/24 06/27/24 Rx buspirone 10 mg tablet 10 mg PO BID #180 tabs 03/01/24 06/27/24 Rx meloxicam 15 mg tablet See Rx Instructions .Route 04/29/24 06/27/24 Rx .COMPLEX #90 tabs alfuzosin 10 mg tablet,extended 10 mg PO DAILY #90 tabs 05/13/24 06/27/24 Rx release 24 hr clonidine HCl 0.1 mg tablet 0.1 mg PO DAILY #180 tabs 05/13/24 06/27/24 Rx finasteride 5 mg tablet 5 mg PO DAILY #90 tabs 05/13/24 06/27/24 Rx bupropion HCl 150 mg 24 hr tablet, See Rx Instructions .Route 05/23/24 06/27/24 Rx extended release .COMPLEX #90 tabs lisinopril 20 mg tablet 20 mg PO QPM #90 tabs 05/23/24 06/27/24 Rx quetiapine 25 mg tablet 25 mg PO BID #180 tabs 05/23/24 06/27/24 Rx famotidine 40 mg tablet 40 mg PO DAILY #90 tabs 06/24/24 06/27/24 Rx Patient hx anesthesia problems: none Family hx anesthesia problems: none Results Review: All pre-operative results and documents have been reviewed as part of the pre- operative evaluation. [facility] Past Medical History Medical History History of colon polyps Hyponatremia Irritable bowel syndrome Family history of prostate carcinoma Tinea pedis Onychomycosis Macular degeneration Benign prostatic hyperplasia Abdominal adhesions Cataract (lens) fragments in eye following cataract surgery Mitral valve prolapse Essential (primary) hypertension Generalized anxiety disorder Major depressive disorder, single episode, in partial remission Mixed hyperlipidemia Surgical History Surgical History History of root canal procedure History of total hip arthroplasty History of cataract extraction History of total right hip arthroplasty (06/28/21) History of hydrocelectomy History of tonsillectomy History of appendectomy Family History Family History Mother Family history of hypercholesterolemia Hypertension Family history of cardiovascular disease Family history of schizophrenia Father Family history of cardiovascular disease Malignant neoplasm of prostate Grandparent Family history of cardiovascular disease Family history of hypercholesterolemia Sibling Patient's sister is in good health Family history of alcoholism Patient's brother is Other Family history of kidney stones Family history of mental disorder Social History Social History Social History: Surrogate decision maker: Duyen Hicks, daughter. Code status: Full code. 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 Substance use: never Substance use type: does not use Do You Feel Safe in your Home?: Yes Lack of Transportation: No Lack of Food: Never True Current Housing: Decline to Answer Concerned About Future Housing: Decline to Answer Difficulty Paying Gas/Electric Bills: Decline to Answer Difficulty Paying for Meds: Decline to Answer Currently Unemployed: Decline to Answer Education: Decline to Answer Difficulty w/ Childcare or Family Care: Decline to Answer Living arrangements: alone Additional living arrangements comments: . Two grown children. 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 Spiritual care concerns: No Anes - Eval Final PreProcedure Day of Procedure 06/27/24 07:03 Patient weight: overweight Heart: regular rate and rhythm Lungs: clear to auscultation Airway: Mallampati scale class II Neurological: alert and oriented Last oral intake: >/= 8 hours ASA classification: III Emergent: no Anesthetic plan: proceed Anesthesia type and monitoring: general GIVS and standard monitoring Results Review: All pre-operative results and documents have been reviewed as part of the pre- operative evaluation. Informed Consent: The patient's anesthetic plan and its attendant risks and benefits were discussed with the patient/family/POA. Questions were solicited and answers provided to the satisfaction of the patient/family/POA.
--- NOTE | 2024-06-27 07:28 | P.HP_ITS ---
History of Present Illness History of Present Illness Consent: Risks, benefits, and alternatives have been discussed and questions answered. Patient agrees to proceed with procedure. Chief complaint: esophageal obstruction Narrative: Sher Hicks is a 79 year old male with dysphagia, had EGD 2021 with esophageal web dilated with Smalls 52Fr PMFSH Past Medical History Medical History (Updated 06/27/24 @ 07:29 by Morales Villafana MD) Dysphagia Dysphagia History of colon polyps Hyponatremia Irritable bowel syndrome Family history of prostate carcinoma Tinea pedis Onychomycosis Macular degeneration Benign prostatic hyperplasia Abdominal adhesions Cataract (lens) fragments in eye following cataract surgery Mitral valve prolapse Essential (primary) hypertension Generalized anxiety disorder Major depressive disorder, single episode, in partial remission Mixed hyperlipidemia Surgical History Surgical History History of root canal procedure History of total hip arthroplasty History of cataract extraction History of total right hip arthroplasty (06/28/21) History of hydrocelectomy History of tonsillectomy History of appendectomy Family History Family History Mother Family history of hypercholesterolemia Hypertension Family history of cardiovascular disease Family history of schizophrenia Father Family history of cardiovascular disease Malignant neoplasm of prostate Grandparent Family history of cardiovascular disease Family history of hypercholesterolemia Sibling Patient's sister is in good health Family history of alcoholism Patient's brother is Other Family history of kidney stones Family history of mental disorder Social History Social History Social History: Surrogate decision maker: Duyen Hicks, daughter. Code status: Full code. 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 Substance use: never Substance use type: does not use Do You Feel Safe in your Home?: Yes Lack of Transportation: No Lack of Food: Never True Current Housing: Decline to Answer Concerned About Future Housing: Decline to Answer Difficulty Paying Gas/Electric Bills: Decline to Answer Difficulty Paying for Meds: Decline to Answer Currently Unemployed: Decline to Answer Education: Decline to Answer Difficulty w/ Childcare or Family Care: Decline to Answer Living arrangements: alone Additional living arrangements comments: . Two grown children. Additional occupation/education comments: Technically retired but he still works every day doing [employer]. Spiritual care concerns: No Meds Home Medications and Allergies Home Medications ?Medication ?Instructions ?Recorded ?Confirmed ?Type cholecalciferol (vitamin D3) 50 50 mcg PO DAILY 07/13/20 06/27/24 History mcg (2,000 unit) capsule folic acid 15 mg tablet 0.4 mg PO DAILY 06/11/21 06/27/24 History polyethylene glycol 3350 17 gram 17 g PO QAM #30 ea 06/29/21 06/25/24 Rx oral powder packet (Miralax) aspirin 81 mg capsule 81 mg PO DAILY 01/12/22 06/27/24 History nebivolol 20 mg tablet 20 mg PO DAILY #90 tabs 02/26/24 06/27/24 Rx doxepin 10 mg/mL oral concentrate 60 mg (6 mL) PO HS #540 mL 02/27/24 06/27/24 Rx buspirone 10 mg tablet 10 mg PO BID #180 tabs 03/01/24 06/27/24 Rx meloxicam 15 mg tablet See Rx Instructions .Route 04/29/24 06/27/24 Rx .COMPLEX #90 tabs alfuzosin 10 mg tablet,extended 10 mg PO DAILY #90 tabs 05/13/24 06/27/24 Rx release 24 hr clonidine HCl 0.1 mg tablet 0.1 mg PO DAILY #180 tabs 05/13/24 06/27/24 Rx finasteride 5 mg tablet 5 mg PO DAILY #90 tabs 05/13/24 06/27/24 Rx bupropion HCl 150 mg 24 hr tablet, See Rx Instructions .Route 05/23/24 06/27/24 Rx extended release .COMPLEX #90 tabs lisinopril 20 mg tablet 20 mg PO QPM #90 tabs 05/23/24 06/27/24 Rx quetiapine 25 mg tablet 25 mg PO BID #180 tabs 05/23/24 06/27/24 Rx famotidine 40 mg tablet 40 mg PO DAILY #90 tabs 06/24/24 06/27/24 Rx Allergies Allergy/AdvReac Type Severity Reaction Status Date / Time azithromycin AdvReac Intermediate Nausea Verified 06/27/24 06:25 ciprofloxacin AdvReac Unknown Nausea Verified 06/27/24 06:25 SHINGLES IMMUNIZATION Allergy Rash Uncoded 06/27/24 06:25 Vital Signs Vital Signs - 24 hr 06/27/24 06:29 Temperature 97.2 F L Pulse Rate 70 Respiratory Rate 18 Blood Pressure 219/90 H Pulse Oximetry 99 Oxygen Delivery Room Air Exam Const: General: comfortable and no acute distress HENMT: Face/Nose/Sinus: Normal nares present Eyes: General: appearance normal, both eyes and all related structures Neck: Neck: no JVD Resp: Auscultation: clear to auscultation bilaterally Cardio: Rate: regular rate Rhythm: regular rhythm GI: Inspection: non-distended GI Palp: Yes Soft to palpation Skin: General skin exam: normal color Neuro: General: gait normal Speech: normal speech Extrem: General: normal to inspection Psych: Mental Status: mental status grossly normal Assessment and Plan Assessment and plan (1) Dysphagia: Code(s): R13.10 - Dysphagia, unspecified Status: Acute Assessment and Plan: egd to assess
[2024-06-27 07:41] VITALS: BP 143/66; PULSE 55; RESP 18; O2SAT 96
[2024-06-27 07:51] VITALS: BP 133/63; PULSE 54; RESP 20; O2SAT 95
[2024-06-27 08:01] VITALS: BP 139/73; PULSE 58; RESP 13; O2SAT 95
== END 2024-06-27 08:12 | disposition home or self-care (01) ==
PROVIDERS: PCP Family Medicine; Visit Provider Internal Medicine Gastroenterology
PROC: 0DJ08ZZ Inspection of Upper Intestinal Tract, Via Natural or Artificial Opening Endoscopic (ICD-10-PCS; CPT 43249; principal; 2024-06-27 07:30)
DX: K21.00 Gastro-esophageal reflux disease with esophagitis, without bleeding (principal); K22.10 Ulcer of esophagus without bleeding; K22.2 Esophageal obstruction; K44.9 Diaphragmatic hernia without obstruction or gangrene
CPT/HCPCS: 43249; 88305; C1726; J2704; J7120

== ENCOUNTER 2024-08-09 09:02 | Outpatient (CLI) | payer MEDICARE, SELFPAY ==
--- NOTE | ~2024-08-09 | MR_ITS ---
MRI of the cervical spine Clinical History: Disc degeneration at C6-C7 Technique: Axial T2-weighted and gradient images, and sagittal T1-weighted, T2-weighted, and STIR darryl ges were acquired. Findings: There is straightening of the normal cervical lordosis. No fracture or subluxation seen. No suspicious bone marrow signal abnormality. At C2-C3, there is no disc bulge or herniation. There is mild facet arthropathy. No central canal vesna nosis or cord compression. No definite neural foraminal narrowing. At C3-C4, there is no disc bulge or protrusion. There is mild facet arthropathy. There is probable mi ld bilateral neural foraminal narrowing. No canal stenosis or cord compression. At C4-C5, there is minimal disc osteophyte complex with facet arthropathy, left worse than right. The re is left neural foraminal narrowing. Right neural foramen preserved. No canal stenosis or cord comp ression. At C5-C6, there is minimal disc bulge with bilateral facet arthropathy, left worse than right. Probab le mild left neural foraminal narrowing. Right neural foramen probably preserved. No canal stenosis o r cord compression. At C6-C7, there is moderate degenerative disc narrowing with mild disc osteophyte complex. There is m ild canal stenosis without jayde cord compression. There is probable mild bilateral neural foraminal narrowing. Paravertebral soft tissues are unremarkable. No abnormal signal seen in the spinal cord. Impression: [id number] degenerative spondylosis, as above. Reviewed, dictated and finalized at [facility]. Impression: [id number] degenerative spondylosis, as above.
== END 2024-08-09 09:03 | disposition home or self-care (01) ==
LOC: GOSHIMG 09:03
PROVIDERS: PCP Family Medicine; Visit Provider Family Medicine
DX: M50.323 Other cervical disc degeneration at C6-C7 level (principal); M47.892 Other spondylosis, cervical region
CPT/HCPCS: 72141

== ENCOUNTER 2024-08-10 11:52 | Emergency (ER) | payer MEDICARE, SELFPAY ==
[2024-08-10] VITALS (7 sets, daily range): BP systolic 192–218; BP diastolic 83–102; PULSE 64–74; RESP 12–16; TEMP 36.9; O2SAT 97–100
--- NOTE | ~2024-08-10 | CT_ITS ---
CTA brain carotid Ordering provider: Magui Harper MD History: . Dizziness, gait abnormalities; LKN 7d ago . Comparison: Reference is made to a carotid duplex performed 09/05/2018 Technique: CT angiogram head and neck was performed following timed intravenous injection of contrast . Thin slice axial images and reformatted coronal images were obtained. Three dimensional reformatted images of the brain were also obtained using a IQMSa workstation. DLP: 1833 mGy-cm FINDINGS: HEAD: --ANTERIOR AND MIDDLE CEREBRAL ARTERIES AND BRANCHES: Normal caliber and contour. --INTRACRANIAL INTERNAL CAROTID ARTERIES: Moderate atheromatous disease within the right intracranial internal carotid artery resulting in mild stenosis but no occlusion. No significant atheromatous disease within the intracranial internal carotid artery on the left. --BASILAR ARTERY AND BRANCHES: Normal caliber and contour. No significant atheromatous disease. --POSTERIOR CEREBRAL ARTERIES: Normal caliber and contour --POSTERIOR COMMUNICATING ARTERIES: Not well visualized likely related to congenital absence or small size. --ANEURYSM: None visualized. --BRAIN: The ventricles are enlarged. The dilatation of the ventricles is proportional to the degree of sulcal prominence, not uncommon in the senescent brain. Decreased attenuation is identified within the periventricular white matter, likely secondary to micr ovascular ischemic disease, in a patient of this age. There is no mass, mass effect or midline shift. There is no abnormal extra-axial fluid collection or intracranial hemorrhage. --BONES AND SUPERFICIAL SOFT TISSUES: No acute displaced fractures within the overlying cranium. --PARANASAL SINUSES AND MASTOIDS: Air-fluid level within the left maxillary sinus. Remaining paranasa l sinuses are unremarkable. The mastoid air cells are well aerated. NECK: --RIGHT CERVICAL CAROTID SYSTEM: Mild atheromatous disease of the carotid bulb and proximal internal carotid artery without significant stenosis. Percent stenosis per NASCET criteria is 2% No carotid d issection. --LEFT CERVICAL CAROTID SYSTEM: Normal caliber and contour. Percent stenosis per NASCET criteria is 0% No carotid dissection. --VERTEBRAL ARTERIES: Normal caliber and contour. --VISUALIZED AORTIC ARCH AND BRANCHING VESSELS: Mild atheromatous disease but no significant stenosis . --SOFT TISSUES: Unremarkable --CERVICAL SPINE: Age appropriate degenerative changes. IMPRESSION: 1. Unremarkable CTA examination of the head and neck. 2. Percent stenosis per NASCET criteria is 2% on the right, and 0% on the left. Reviewed, dictated and finalized at location A. IMPRESSION: 1. Unremarkable CTA examination of the head and neck. 2. Percent stenosis per NASCET criteria is 2% on the right, and 0% on the lef t.
--- NOTE | ~2024-08-10 | XR_ITS ---
EXAMINATION: XR chest 1V portable 08/10/2024 12:51 INDICATION: CVA PROCEDURE: 2 view chest COMPARISON: 12/16/2022 FINDINGS: The lungs are clear. The cardiomediastinal silhouette is within normal limits. There are no pleural effusions. There is no pneumothorax suspected. IMPRESSION: 1: NO ACUTE CARDIOPULMONARY DISEASE. Reviewed, dictated and finalized at location B.
--- OUTSIDE RECORDS SUMMARY | 2024-08-10 11:55 | XMS_ITS | Clinical Summary ---
Author Organization [facility] [address] Address [address] [place] [address] Care Team Providers Care Appeals Rn Name Role Phone Adriano Sosa MD Primary Care Provider [phone] Allergies Active Allergy Reactions Criticality Noted Date Comments Adjuvant As01b (Pf)Vial 1 Of 2 Other (See comments) Low 01/27/2024 PT DOES NOT REMEMBER REACTION Azithromycin Syncope,Nausea only High Ciprofloxacin Nausea only Low 10/25/2021 Medications aspirin 81 mg enteric coated tablet Take 1 tablet (81 mg total) by mouth daily Active lisinopril (PRINIVIL,ZESTRI L) 20 mg tablet Take 1 tablet (20 [...] (60 mg total) by mouth daily Active cholecalciferol, vitamin D3, (VITAMIN D3 ORAL) Take by [...] tablet (15 mg total) by mouth daily 1 Active polyethylene glycol 3350 (MIRALAX ORAL) Activ e rosuvastatin (CRESTOR) 5 mg tabletIndication s:Hypercholester emia Take one pill every other day 15 tablet 3 1 Active Additional Information Patient not taking.Reported on 07/01/2024 levomefolate-alg al oil 15-90.314 mg capsule L-Methylfolate Forte 15 mg-90.314 mg capsule Take by oral route. Active vitamin b complex tablet Take 1 tablet by mouth every other day Active busPIRone (BUSPAR) 10 mg tabletIndication s:Generalized Anxiety Disorder Take 1 tablet (10 mg total) by mouth 2 (two) times a day as needed Active finasteride (PROSCAR) 5 mg tablet Take 1 tablet (5 mg total) by mouth daily Active UNABLE TO FIND METHYLATED FOLATE 15 MG DAILY Active alfuzosin ER (UROXATRAL) 10 mg 24 hr tablet Take 1 tablet (10 mg total) by mouth daily Active cloNIDine (CATAPRES) 0.1 mg tablet Take 1 tablet (0.1 mg total) by mouth daily 4 Active acetaminophen (TYLENOL) 325 mg suppository Insert 1 suppository (325 mg total) into the rectum every 4 (four) hours as needed for pain Active omeprazole (PriLOSEC) 40 mg capsule Take 1 capsule (40 mg total) by mouth daily Active Active Problems Problem Noted Date Diagnosed [...] 03/17/2011 Assessment & Plan (06/28/2022 2:01 PM INTRAOPERATIVE NEURO TECH): 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 [...] Date Resolved Date Preop cardiovascular exam 04/19/2021 Encounters Date Type Department Care Team Description 07/01/2024 11:00 AM INTRAOPERATIVE NEURO TECH Office Visit [facility] Card[facility] [address] [place] [address] Isaura Childs MD Essential hypertension (Primary Dx); Hypercholesteremia from Last 3 Months Surgical History Surgery Date Site/Laterality Comments APPENDECTOMY [...] on file Legal Sex Male 12:21 AM INTRAOPERATIVE NEURO TECH Gender Identity Not on file Sexual Orientation Not on file Occupation Industry Job Start Date Job End Date [employer] Not on file Not on file Not on fi le Obstetrics History Last Filed Vital Signs Vital Sign Reading Time Taken Comments Blood Pressure 139/84 07/01/2024 10:57 AM INTRAOPERATIVE NEURO TECH Pulse 67 07/01/2024 10:57 AM INTRAOPERATIVE NEURO TECH Temperature - - Respiratory Rate 14 01/17/2023 11:4 8 AM CDT Oxygen Saturation 98% 07/01/2024 10: 57 AM INTRAOPERATIVE NEURO TECH Inhaled Oxygen Concentration - - Weight 93.3 kg (205 lb 11.2 oz) 025 10:57 AM INTRAOPERATIVE NEURO TECH Height 177.8 cm (5' 10 ) 07/01/2024 10: 57 AM INTRAOPERATIVE NEURO TECH Body Mass Index 29.51 07/01/2024 10:57 AM INTRAOPERATIVE NEURO TECH Plan of Treatment Health Maintenance Due Date Last Done Comments Fall Risk Assessment 1945 Hepatitis C Screening 1945 DTaP/Tdap/Td Vaccine (1 - Tdap) 1958 Hepatitis B Screening 1965 Pneumococcal vaccine 65+ (1 of 1 - PCV) 1997 Well Visit 65+ 2012 Zoster Vaccine (2 of 2) 11/05/2017 09/10/2017 Depression Screening 03/06/2020 03/06/2019, 03/06/20 19 Influenza Vaccine (#1) 2024 Insurance MEDICARE REPLACED BY [facility] MEDICARE BLUE CROSS MEDICARE SUPPLEMENT MEDICARE REPLACED BY [facility] Care Teams Appeals Rn Relationship Specialty Start Date End Date Adriano Sosa MD PCP - General 09/12/06
--- OUTSIDE RECORDS SUMMARY | 2024-08-10 11:55 | XMS_ITS | Clinical Summary ---
Author Organization [facility] Address [address] [place] [address] Phone Care Team Providers Care Supervisor Hardboard Name Role Phone Adriano Sosa MD Primary Care Provider [phone] Social History Tobacco Use Types Packs/Day Years [...] age to complete this topic Insurance MEDICARE [facility] Care Teams Supervisor Hardboard Relationship Specialty Start Date End Date Adriano Sosa MD [address] [place] [address] [address] [place], [place] [id number] PCP - General Family Medicine 02/29/16
--- OUTSIDE RECORDS SUMMARY | 2024-08-10 11:55 | XMS_ITS | Clinical Summary ---
Author Organization [facility] Address [address] [place] [address] Care Team Providers Care Film Spooler Name Role Phone Unavailable Primary Care Provider Unavailabl e Allergies Active Allergy Reactions Criticality Noted Date Comments Adjuvant As01b (Pf)Vial 1 Of 2 Other (See Comments) 01/27/2024 PT DOES NOT REMEMBER REACTION Medications QUEtiapine (SEROquel) 25 mg tablet take one tablet twice daily 180 Tablet 01/07/20 22 Active nebivoloL (BYSTOLIC) 20 mg Tablet Take 1 Tablet (20 mg) by mouth daily. 90 Tablet 3 02/26/2024 5:00 PM CDT 02/26/20 24 Active nebivoloL (BYSTOLIC) 20 mg Tablet Take 1 Tablet (20 mg) by mouth daily. 90 Tablet 3 05/17/2024 12:58 PM INSULATION ESTIMATOR 02/26/20 24 Active finasteride (PROSCAR) 5 mg tablet Take 1 Tablet (5 mg) by mouth daily. 90 Tablet 4 02/28/2024 3:33 PM CDT 02/26/20 24 Active alfuzosin (UROXATRAL) 10 mg Extended Release 24 hour tablet Take 1 Tablet (10 mg) by mouth daily at bedtime. 30 Tablet 12 04/21/2024 11:08 AM INSULATION ESTIMATOR 01/23/20 24 Active hydrocortisone acetate (Anucort-HC) 25 mg Suppository Unwrap and Insert 1 Suppository (25 mg) by rectum 2 times daily. 12 Suppository 1 02/21/20 24 Active doxepin (SINEquan) 10 mg/mL Concentrate Take 6 mL (60 mg) by mouth daily. 540 mL 1 05/17/2024 12:58 PM INSULATION ESTIMATOR 02/27/20 24 Active busPIRone (BUSPAR) 10 mg tablet Take 1 Tablet (10 mg) by mouth 2 times daily. 180 Tablet 1 05/16/2024 8:21 AM INSULATION ESTIMATOR 03/01/20 24 Active alfuzosin (UROXATRAL) 10 mg Extended Release 24 hour tablet Take 1 Tablet (10 mg) by mouth daily. Take after the same meal each day. 90 Tablet 3 05/16/2024 8:21 AM INSULATION ESTIMATOR 05/13/20 24 Active finasteride (PROSCAR) 5 mg tablet Take 1 Tablet (5 mg) by mouth daily. 90 Tablet 3 05/17/2024 12:58 PM INSULATION ESTIMATOR 05/13/20 24 Active buPROPion HCL (WELLBUTRIN XL) 150 mg Extended Release 24 hour tablet Take 1 Tablet (150 mg) by mouth daily in the morning. 90 Tablet 1 05/23/19 25 Active lisinopriL (PRINIVIL) 20 mg tablet Take 1 Tablet (20 mg) by mouth daily in the evening. 90 Tablet 1 05/23/19 25 Active QUEtiapine (SEROquel) 25 mg tablet Take 1 Tablet (25 mg) by mouth 2 times daily. 180 Tablet 1 05/23/19 25 Active omeprazole (PriLOSEC) 40 mg Capsule, Delayed Release(E.C.) Take 1 Capsule (40 mg) by mouth daily. 30 Capsule 5 06/29/2024 11:20 AM INSULATION ESTIMATOR 06/27/19 25 Active cloNIDine HCL (CATAPRES) 0.1 mg tablet Take 1 Tablet (0.1 mg) by mouth 2 times daily. 180 Tablet 1 07/09/2024 4:43 PM INSULATION ESTIMATOR 07/08/19 25 Active meloxicam (MOBIC) 15 mg tablet Take 1 Tablet (15 mg) by mouth daily. 90 Tablet 1 08/06/2024 12:35 PM CDT 08/06/19 25 Active Encounters Date Type Department Care Team Description 08/07/2024 External Device Data [facility] ABSTRACTION Provider, Abstract 07/27/2024 External Device Data [facility]STRACTION Provider, Abstract 07/26/2024 External Device Data [facility]STRACTION Provider, Abstract 07/09/2024 External Device Data [facility]STRACTION Provider, Abstract 06/25/2024 External Device Data [facility]STRACTION Provider, Abstract 06/22/[address] [place] [address] Adriano Sosa MD 06/13/2024 External Device Data [facility]STRACTION Provider, Abstract 06/12/2024 External Device Data [facility]STRACTION Provider, Abstract 06/11/2024 External Device Data [facility]STRACTION Provider, Abstract 06/04/2024 External Device Data [facility]STRACTION Provider, Abstract 05/21/2024 External Device Data [facility] ABSTRACTION Provider, Abstract from Last 3 Months Social History Tobacco Use Types Packs/Day Years Used Date Smoking Tobacco: Never Assessed Sex and Gender Information Value Date Recorded Sex Assigned at Not on file Legal Sex Male 6:44 PM CDT Gender Identity Not on file Sexual Orientation Not on file Plan of Treatment Health Maintenance Due Date Last Done Comments DTAP/TDAP/TD VACCINES (1 - Tdap) 1966 PNEUMOCOCCAL VACCINE 50+ YEARS (1 of 1 - PCV) 06/07/18 98 ZOSTER VACCINE (1 of 2) 1997 RSV VACCINE (60+ or ) (1 - 1-dose 75+ series) 2022 INFLUENZA VACCINE (#1) 2023 Insurance RX [facility] Medicare Part D RX [employer] (INTERNAL) [facility]
--- OUTSIDE RECORDS SUMMARY | 2024-08-10 11:55 | XMS_ITS | Referral Summary ---
Author Organization [facility] [address] [facility] [address] [place] [address] Care Team Providers Care Recreation Clerk Name Role Phone Adriano Sosa MD Primary Care Provider [phone] Encounters Date Type Department Care Team Description 07/01/2024 11:00 AM OCCUPATIONAL MEDICINE SPECIALIST Office Visit [facility] Cardiology [address] [place] [address] Isaura Childs MD Essential hypertension (Primary Dx); Hypercholesteremia from Last 3 Months Allergies Active Allergy Reactions Criticality Noted Date [...] 03/17/2011 Assessment & Plan (06/28/2022 2:01 PM OCCUPATIONAL MEDICINE SPECIALIST): 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 on file Not on file Not on fi le Last Filed Vital Signs Vital Sign Reading Time Taken Comments Blood Pressure 139/84 07/01/2024 10:57 AM OCCUPATIONAL MEDICINE SPECIALIST Pulse 67 07/01/2024 10:57 AM OCCUPATIONAL MEDICINE SPECIALIST Temperature - - Respiratory Rate 14 01/17/2023 11:4 8 AM CDT Oxygen Saturation 98% 07/01/2024 10: 57 AM OCCUPATIONAL MEDICINE SPECIALIST Inhaled Oxygen Concentration - - Weight 93.3 kg (205 lb 11.2 oz) 025 10:57 AM OCCUPATIONAL MEDICINE SPECIALIST Height 177.8 cm (5' 10 ) 07/01/2024 10: 57 AM OCCUPATIONAL MEDICINE SPECIALIST Body Mass Index 29.51 07/01/2024 10:57 AM OCCUPATIONAL MEDICINE SPECIALIST Plan of Treatment Not on file Insurance MEDICARE [facility] MEDICARE BLUE CROSS MEDICARE SUPPLEMENT MEDICARE [facility] Care Teams Recreation Clerk Relationship Specialty Start Date End Date Adriano Sosa MD PCP - General 09/12/06
--- NOTE | 2024-08-10 12:32 | ED.NEUROSD ---
HPI - Neuro Symptoms/Deficit General Chief Complaint: Neuro Symptoms/Deficit Stated Complaint: nausea, loss of balance, stumbling x7 days Time Seen by Provider: 08/10/24 12:26 Source: patient Mode of arrival: ambulatory Limitations: no limitations History of Present Illness HPI Narrative: Right hand dominant male presents with report of dizzy spells. Patient states that his symptoms had been preceded by going from seated to standing but the fact that they were now occurring even at rest and he did as well as the increased frequency was cause for concern. He states it is possible that they were precipitated by head movement (e.g. turnign his head to look from his computer to the paper, etc.) although he does not know. History of neck injury which led to complications and PCP ordered MRI C spine which was done yesterday and reportedly normal. He has chronic tinnitus, no acute change. No ear pain, fevers, chills. He describes intermittent mild headache and transient facial pain but which was otherwise asymptomatic on appearance. No unilateral symptoms. Episodes of dizziness last approximately 1 minute, occuring more frequently over the past 1 week. No slurred speech or altered mental stauts. Denies lightheadedness. He will feel off balance during episodes but not otherwise upon resolution. Denies room spinning / self spinning sensation or feeling disoriented. No blurred vision or diplopia. PCP and he have been trying to manage his hypertension which patient thinks might be refractory. Still working with Dr Sosa on this. Currently on nebivolol QHS 20mg, lisnopril 20mg at 6pm, and clonidine BID, originally dose 0.1 but downtitrated to 0.05 BID due to some issues with stumbling and losing balance and felt to possibly be a medication side effect. Had a hole in his macula 2-3 years ago. Lives on his own but children relatively close or at least available if needed. Related Data Home Medications ?Medication ?Instructions ?Recorded ?Confirmed ?Last Taken ?Type cholecalciferol (vitamin D3) 50 50 mcg PO DAILY 07/13/20 08/02/24 06/26/24 History mcg (2,000 unit) capsule folic acid 15 mg tablet 0.4 mg PO DAILY 06/11/21 08/02/24 06/26/24 History Allergies Allergy/AdvReac Type Severity Reaction Status Date / Time azithromycin AdvReac Intermediate Nausea Verified 08/02/24 13:57 ciprofloxacin AdvReac Unknown Nausea Verified 08/02/24 13:57 SHINGLES IMMUNIZATION Allergy Rash Uncoded 08/02/24 13:57 [facility] Past Medical History Medical History Right hand dominant Dysphagia History of colon polyps Hyponatremia Irritable bowel syndrome Family history of prostate carcinoma Tinea pedis Onychomycosis Macular degeneration Benign prostatic hyperplasia Abdominal adhesions Cataract (lens) fragments in eye following cataract surgery Mitral valve prolapse Essential (primary) hypertension Generalized anxiety disorder Major depressive disorder, single episode, in partial remission Mixed hyperlipidemia Surgical History Surgical History History of root canal procedure History of total hip arthroplasty History of cataract extraction History of total right hip arthroplasty (06/28/21) History of hydrocelectomy History of tonsillectomy History of appendectomy Family History Family History Mother Family history of hypercholesterolemia Hypertension Family history of cardiovascular disease Family history of schizophrenia Father Family history of cardiovascular disease Malignant neoplasm of prostate Grandparent Family history of cardiovascular disease Family history of hypercholesterolemia Sibling Patient's sister is in good health Family history of alcoholism Patient's brother is Other Family history of kidney stones Family history of mental disorder Social History Social History Social History: Surrogate decision maker: Duyen Hicks, daughter. Code status: Full code. 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 Substance use: never Substance use type: does not use Do You Feel Safe in your Home?: Yes Lack of Transportation: No Lack of Food: Never True Current Housing: Decline to Answer Concerned About Future Housing: Decline to Answer Difficulty Paying Gas/Electric Bills: Decline to Answer Difficulty Paying for Meds: Decline to Answer Currently Unemployed: Decline to Answer Education: Decline to Answer Difficulty w/ Childcare or Family Care: Decline to Answer Living arrangements: alone Additional living arrangements comments: . Two grown children. 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 Spiritual care concerns: No Exam Const: General: healthy appearing, no acute distress and alert; No diaphoretic or ill appearing Nutritional Appearance: well nourished Orientation/consciousness: patient oriented x3 Limitations: no limitations HENMT: Head: normal to inspection, no contusions and no hematomas Ears: external ears normal, TM's normal bilaterally and EAC's normal Face/Nose/Sinus: Normal external nose present and no epistaxis Face and sinus: normal facial exam (no asymmetry/loss of nasolabial fold) Eyes: Conjunctivae: conjunctivae normal Pupils: Equal, round and reactive pupils present EOM: EOMs intact bilaterally (no nystagmus) Direct Ophthalmoscopy: no photophobia Other: peripheral visual austin intact, no deficits Neck: Neck: normal visual inspection and no meningeal signs Resp: Effort & Inspection: normal respiratory effort, not labored, no retractions, not tachypneic and no use of accessory muscles Cardio: Rate: regular rate Skin: General skin exam: normal color, no jaundice and no pallor Rashes: no rashes Neuro: General: patient oriented x3, moves all extremities, no meningeal signs, no focal motor deficits and CN's II-XI intact bilaterally Cranial nerves: Yes Nystagmus not present Speech: normal speech Gait exam (Neuro): Normal gait present Other: no ataxia on FNF; no extinction; no motor drift x4 extremities; speaks clearly withou dysarthria or aphasia. answers questions appropriately. Follows commands. Extrem: General: normal to inspection Psych: Mental Status: mental status grossly normal Affect: normal affect, No Sad affect present and No Anxious affect present Attitude: cooperative Course Vital Signs Vital signs: Vital Signs Temperature 98.5 F 08/10/24 11:56 Pulse Rate 74 08/10/24 11:56 Respiratory Rate 16 08/10/24 11:56 Blood Pressure 212/96 H 08/10/24 11:56 Pulse Oximetry 100 08/10/24 11:56 Oxygen Delivery Room Air 08/10/24 11:56 Temperature 98.5 F 08/10/24 11:56 Pulse Rate 71 08/10/24 17:00 Respiratory Rate 12 08/10/24 17:00 Blood Pressure 194/102 H 08/10/24 16:59 Pulse Oximetry 98 08/10/24 17:00 Oxygen Delivery Room Air 08/10/24 11:56 MDM - Neuro Symptoms/Deficit MDM Narrative Medical decision making narrative: Right hand dominant Patient presents with episodes of dizziness. These spells last for approximately 1 minute. They had been happening only with standing but now at rest/while seated and frequency increasing. History of neck injury. Underwent MRI C spine yesterday, reportedly normal. In the emergency department he is afebrile with vital signs notable for significant hypertension, 212/96. Currently on 3 antihypertensives and working with PCP on management of this as the clonidine he had been on dosage decreased as it was felt that there may be a component of medication side effect so clonidine dosage halved. Last known well is >/= 1 week ago]. The patient is protecting their airway which is patent. An IV is established by nursing staff blood work sent to the lab for evaluation. An EKG will be performed. NIHSS was evaluated per below. No acute stroke activiation given duration of symptoms. NIHSS Level Of consciousness: 0 Month and age:0 Follows commands:0 Gaze palsy:0 Visual austin:0 Facial palsy:0 Left arm motor drift:0 Right arm motor drift:0 Left leg motor drift:0 Right leg motor drift:0 Limb ataxia:0 Sensation:0 Aphasia:0 Dysarthria:0 Extinction:0 Total: 0 Patient has comorbidities that complexity management. Namely, he has hypertension which he might be symptomatic from otherwise but is asymptomatic here given hasn't experienced a dizzy spell currently. Chart review performed; MRI from yesterday reviewed. . Labs including troponin normal. He has hyponatremia however is only a drop of 2 in the past 4 months, not a significant delta. Patient ambulates without difficulty on gait assessment per nurse. He is asymptomatic and does not require any assistance. This does not sound like a CVA/TIA. However, even if so, ABCD2 Risk Score Age greater than or equal to 60 1 SBP greater than or equal to140 or greater than or equal to DBP >90: 1 Speech impairment without weakness 0 Unilateral weakness w or w/o speech impairment 0 TIA duration <10 min: 0 Diabetes 0 Total Score 2 points Per the validation study, 0-3 points confers a 2-day stroke risk of 1.0% and a 7-day stroke risk of 1.2% and a 90-day stroke risk of 3.1%. He remains asymptomatic without further episodes while in the ED the entire time. Will defer attempting aggresive BP lowering due to increased risk with that. There is a delay in obtaining radiology interpretation of CTA; tech will send to [facility] to obtain interpretation. There is a delay in obtaining [facility] read as no fax arrived in the ED. Called CT who notified me that according to their records it was read at approximately 3pm. Will attempt to track down [facility] read. This is finally accomplished. Extensive time with patient discussing work up thus far, possible considerations. Offered admission to pursue further work up with MRI but patient already scheduled for MRI of brain on Monday (within 36 hours). Shared decision making with patent who feels comfortable proceeding with initial outpatient plan and following up with Dr Sosa on the results and continued BP management. Differential Diagnosis Differential diagnosis: Likely subarachnoid hemorrhage, cerebrovascular accident, multiple sclerosis, transient cerebral ischemia and other (considered vertigo; hypertensive urgency/emergency/PRES; tachydysrhythmias, bradydysrhythmias; orthostatic hypotension; vertebrobasillar insuffuciency; medication side effect) Medical Records Attestation: I reviewed the patient's medical records. Medical records narrative: MRI C spine 08/09/24 : Impression: [id number] degenerative spondylosis, as above. Lab Data Attestation: I reviewed the patient's lab results. Lab results narrative: CBC grossly unremarkable 08/10/24 12:51 08/10/24 12:51 Labs: Lab Results 08/10/24 Range/Units 12:51 WBC 5.2 (4.5-10.0) K/mm3 RBC 5.27 (4.6-6.20) M/mm3 Hgb 14.6 (14.0-18.0) g/dL Hct 43.9 (42.0-52.0) % MCV 83.3 (80-100) fl MCH 27.7 (26-34) pg MCHC 33.3 (32-36) g/dl RDW 12.4 (11.5-14.5) % Plt Count 298 (150-375) k/mm3 MPV 9.9 (7.4-10.4) fl Immature Gran % (Auto) 0.6 H (0-0.5) % Neut % (Auto) 65.1 (45.5-73.1) % Lymph % (Auto) 21.3 (18.3-44.2) % [place] % (Auto) 9.5 H (2.6-8.5) % Eos % (Auto) 2.5 (0-4.4) % Baso % (Auto) 1.0 (0.2-1.2) % Lymph # (Auto) 1.10 (0.9-3.2) K/mm3 [place] # (Auto) 0.5 (0.1-0.6) K/mm3 Eos # (Auto) 0.1 (0-0.3) K/mm3 Baso # (Auto) 0.1 (0.0-0.1) K/mm3 Abs Immat Gran (auto) 0.03 (0.00-0.031) K/mm3 Absolute Neuts (auto) 3.4 (1.3-6.7) K/mm3 Absolute Nucleated RBC 0.000 (0.0-0.012) K/mm3 Nucleated RBC % 0.0 (0.0-0.2) % PT 12.7 (11.1-14.7) Seconds INR 0.9 APTT 31.2 (22.3-36.8) Seconds Sodium 131 L (137-145) mmol/L Potassium 4.1 (3.4-5.0) mmol/L Chloride 95 L (98-107) mmol/L Carbon Dioxide 28 (22-30) mmol/L Anion Gap 8 (4-12) mmol/L BUN 11 (9-20) mg/dL Creatinine 1.04 (0.7-1.3) mg/dL Estim Creat Clear Calc 54 ml/min Estimated GFR > 60 (59 - ) Glucose 92 (65-110) mg/dL Calcium 9.2 (8.4-10.2) mg/dL Total Bilirubin 0.6 (0.2-1.3) mg/dL AST 25 (17-59) U/L ALT 21 (6-50) U/L Alkaline Phosphatase 103 (38-126) U/L Troponin I < 0.012 (0.000-0.034) ng/mL NT-Pro-B Natriuret Pep 58 (19.9-100) pg/mL Total Protein 8.0 (6.3-8.2) g/dL Albumin 4.3 (3.5-5.1) g/dL Urine Color Yellow (Yellow) Urine Appearance Clear (Clear) Urine pH 6.0 (5.0-9.0) Ur Specific [place] 1.009 (1.001-1.035) Urine Protein Negative (Negative) mg/dL Urine Glucose (UA) Negative (Negative) mg/dL Urine Ketones Negative (Negative) mg/dL Ur Blood (Man) Negative (Negative) Urine Nitrate Negative (Negative) Urine Bilirubin Negative (Negative) Urine Urobilinogen 1.0 (<2.0) mg/dL Leukocyte Esterase Rfl Negative (Negative) RAJ/UL Urine Opiates Screen Negative (Negative) Urine Methadone Screen Negative (Negative) Ur Barbiturates Screen Negative (Negative) Ur Phencyclidine Scrn Negative (Negative) Ur Amphetamine Screen Negative (Negative) U Benzodiazepines Scrn Negative (Negative) Urine Cocaine Screen Negative (Negative) U Cannabinoids Screen Negative (Negative) Ethyl Alcohol < 10 (<10) mg/dL Imaging Data Attestation: I personally reviewed and interpreted this imaging study as follows: My impression: Borderline cardiomegaly on my independent interpretation of chest x-ray but without evidence of pleural effusion as there is no loss of costophrenic angle in fact they appear deep Radiologist's impression: CTA Head [facility]: No intracranial stenosis, occlusion or aneurysm. Incidental findings: Mild cavernous carotid atherosclerosis. CTA Neck: Widely patent cervical carotid and vertebral arteries. Incidental findings: Mild atherosclerosis of the carotid bifurcations. Left dominant vertebral artery. ECG Data EKG #1: Attestation: I personally reviewed and interpreted this ECG as follows: ECG completion date: 08/10/24 ECG completion time: 12:56 Interpretation: Normal sinus rhythm at a rate of 65 beats per minute. Incomplete RBBB given QRS less [id number]; RSR' M-shaped pattern in V1-V3; though not particularly wide, slurred S wave in lateral leads (I, aVL, V5-6). Good R-wave progression across the precordial leads. T-wave inversions. Discharge Plan Discharge Clinical Impression: Hyponatremia, Dizzy spells, Tinnitus, Hypertension Patient Disposition: Home, Self-Care Condition: Stable Instructions: Antibiotic Form, Hyponatremia (ED), Hypertension (ED), Dizziness (ED), Tinnitus (ED) Additional Instructions: Continue taking your medications as prescribed. Keep your upcoming MRI appointment on Monday. Follow-up with primary care physician. Return to the emergency department with any new worsening, unmanaged symptoms. Patient Language: Lithuanian Prescriptions: No Action cholecalciferol (vitamin D3) 50 mcg (2,000 unit) capsule 50 mcg PO DAILY finasteride 5 mg tablet 5 mg PO DAILY Qty: 90 3RF alfuzosin 10 mg tablet extended release 24 hr 10 mg PO DAILY Qty: 90 3RF Rx Instructions: administer after the same meal each day clonidine HCl 0.1 mg tablet 0.05 mg PO BID Qty: 180 1RF folic acid 15 mg Tablet 0.4 mg PO DAILY polyethylene glycol 3350 [Miralax] 17 gram Powder In Packet 17 g PO QAM Qty: 30 0RF nebivolol 20 mg tablet 20 mg PO DAILY Qty: 90 3RF doxepin 10 mg/mL concentrate 60 mg PO HS Qty: 540 1RF Rx Instructions: TAKE 6 ML(60 MG) BY MOUTH DAILY buspirone 10 mg tablet 10 mg PO BID Qty: 180 1RF bupropion HCl 150 mg tablet extended release 24 hr See Rx Instructions .ROUTE .COMPLEX Qty: 90 1RF Dose Instruction: TAKE 1 TABLET BY MOUTH EVERY MORNING Rx Instructions: TAKE 1 TABLET BY MOUTH EVERY MORNING lisinopril 20 mg tablet 20 mg PO QPM Qty: 90 1RF Rx Instructions: TAKE 1 TABLET BY MOUTH DAILY quetiapine 25 mg tablet 25 mg PO BID Qty: 180 1RF omeprazole 40 mg capsule,delayed release(DR/EC) 40 mg PO DAILY Qty: 30 5RF meloxicam 15 mg tablet See Rx Instructions .ROUTE .COMPLEX Qty: 90 1RF Dose Instruction: TAKE 1 TABLET BY MOUTH DAILY Rx Instructions: TAKE 1 TABLET BY MOUTH DAILY Follow-up/Referrals: Adriano Sosa MD [Primary Care Provider] - Stand Alone Forms: Work/School Release IP Time of Disposition: 19:31
--- OUTSIDE RECORDS SUMMARY | 2024-08-10 12:33 | XMS_ITS | Clinical Summary ---
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 Not on file Not on fi le Obstetrics History Last Filed Vital Signs Vital Sign Reading Time Taken Comments Blood Pressure 139/84 07/01/2024 10:57 AM RESOLUTE PROFESSIONAL Pulse 67 07/01/2024 10:57 AM RESOLUTE PROFESSIONAL Temperature - - Respiratory Rate 14 01/17/2023 11:4 8 AM CDT Oxygen Saturation 98% 07/01/2024 10: 57 AM RESOLUTE PROFESSIONAL Inhaled Oxygen Concentration - - Weight 93.3 kg (205 lb 11.2 oz) 025 10:57 AM RESOLUTE PROFESSIONAL Height 177.8 cm (5' 10 ) 07/01/2024 10: 57 AM RESOLUTE PROFESSIONAL Body Mass Index 29.51 07/01/2024 10:57 AM RESOLUTE PROFESSIONAL Plan of Treatment Health Maintenance Due Date Last Done Comments Fall Risk Assessment 1945 Hepatitis C Screening 1945 DTaP/Tdap/Td Vaccine (1 - Tdap) 1958 Hepatitis B Screening 1965 Pneumococcal vaccine 65+ (1 of 1 - PCV) 1997 Well Visit 65+ 2012 Zoster Vaccine (2 of 2) 11/05/2017 09/10/2017 Depression Screening 03/06/2020 03/06/2019, 03/06/20 19 Influenza Vaccine (#1) 2024 Insurance MEDICARE [facility] MEDICARE BLUE CROSS MEDICARE SUPPLEMENT MEDICARE [facility] Care Teams Shrimp Cleaner Relationship Specialty Start Date End Date Adriano Sosa MD PCP - General 09/12/06
--- OUTSIDE RECORDS SUMMARY | 2024-08-10 12:33 | XMS_ITS | Clinical Summary ---
Author Organization [facility] Address [address] [place] [address] Care Team Providers Care Meat Loiner Name Role Phone Unavailable Primary Care Provider [...] daily. 90 Tablet 3 05/17/2024 12:58 PM REGULATORY COMPLIANCE MANAGER 02/26/20 24 Active finasteride (PROSCAR) 5 mg tablet Take 1 Tablet (5 mg) by mouth daily. 90 Tablet 4 02/28/2024 3:33 PM CDT 02/26/20 24 Active alfuzosin (UROXATRAL) 10 mg Extended Release 24 hour tablet Take 1 Tablet (10 mg) by mouth daily at bedtime. 30 Tablet 12 04/21/2024 11:08 AM REGULATORY COMPLIANCE MANAGER 01/23/20 24 Active hydrocortisone acetate (Anucort-HC) 25 mg Suppository Unwrap and Insert 1 Suppository (25 mg) by rectum 2 times daily. 12 Suppository 1 02/21/20 24 Active doxepin (SINEquan) 10 mg/mL Concentrate Take 6 mL (60 mg) by mouth daily. 540 mL 1 05/17/2024 12:58 PM REGULATORY COMPLIANCE MANAGER 02/27/20 24 Active busPIRone (BUSPAR) 10 mg tablet Take 1 Tablet (10 mg) by mouth 2 times daily. 180 Tablet 1 05/16/2024 8:21 AM REGULATORY COMPLIANCE MANAGER 03/01/20 24 Active alfuzosin (UROXATRAL) 10 mg Extended Release 24 hour tablet Take 1 Tablet (10 mg) by mouth daily. Take after the same meal each day. 90 Tablet 3 05/16/2024 8:21 AM REGULATORY COMPLIANCE MANAGER 05/13/20 24 Active finasteride (PROSCAR) 5 mg tablet Take 1 Tablet (5 mg) by mouth daily. 90 Tablet 3 05/17/2024 12:58 PM REGULATORY COMPLIANCE MANAGER 05/13/20 24 Active buPROPion HCL (WELLBUTRIN XL) [...] daily. 30 Capsule 5 06/29/2024 11:20 AM REGULATORY COMPLIANCE MANAGER 06/27/19 25 Active cloNIDine HCL (CATAPRES) 0.1 mg tablet Take 1 Tablet (0.1 mg) by mouth 2 times daily. 180 Tablet 1 07/09/2024 4:43 PM REGULATORY COMPLIANCE MANAGER 07/08/19 25 Active meloxicam (MOBIC) 15 mg [...] Device Data [facility] ABSTRACTION Provider, Abstract 06/22/[address] [place] [address] Adriano Sosa MD 06/13/2024 External Device [...]
--- OUTSIDE RECORDS SUMMARY | 2024-08-10 12:33 | XMS_ITS | Referral Summary ---
Author Organization [facility] [address] [facility] [address] [place] [address] Care Team Providers Care Print Developer Automatic Name Role Phone Adriano Sosa MD Primary Care Provider [phone] Encounters Date Type Department Care Team Description 07/01/2024 11:00 AM FURNITURE DESIGNER Office Visit [facility] Medical [facility] Cardiology [address] [facility] [address] [place] [address] Isaura Childs MD Essential hypertension [...] 03/17/2011 Assessment & Plan (06/28/2022 2:01 PM FURNITURE DESIGNER): 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 Not on file Not on fi le Last Filed Vital Signs Vital Sign Reading Time Taken Comments Blood Pressure 139/84 07/01/2024 10:57 AM FURNITURE DESIGNER Pulse 67 07/01/2024 10:57 AM FURNITURE DESIGNER Temperature - - Respiratory Rate 14 01/17/2023 11:4 8 AM CDT Oxygen Saturation 98% 07/01/2024 10: 57 AM FURNITURE DESIGNER Inhaled Oxygen Concentration - - Weight 93.3 kg (205 lb 11.2 oz) 025 10:57 AM FURNITURE DESIGNER Height 177.8 cm (5' 10 ) 07/01/2024 10: 57 AM FURNITURE DESIGNER Body Mass Index 29.51 07/01/2024 10:57 AM FURNITURE DESIGNER Plan of Treatment Not on file Insurance MEDICARE [facility] MEDICARE BLUE CROSS MEDICARE SUPPLEMENT MEDICARE [facility] Care Teams Print Developer Automatic Relationship Specialty Start Date End Date Adriano Sosa MD PCP - General 09/12/06
--- NOTE | 2024-08-10 12:34 | ECG_ITS ---
Test Date: 2024-08-10 12:56:59 Measurements Intervals [place] Rate: 65 P: 21 [place]: 200 QRS: -9 QRSD: 112 T: 38 QT: 398 QTc: 417 Interpretive Statements SINUS RHYTHM LOW QRS VOLTAGE IN PRECORDIAL LEADS [QRS DEFLECTION < 1.0 mV IN CHEST LEADS] INCOMPLETE RIGHT BUNDLE BRANCH BLOCK [90+ ms QRS DURATION, TERMINAL R IN V1/V2, 40+ ms S IN I/aVL/V4/V5/V6] MODERATE VOLTAGE CRITERIA FOR LVH, CONSIDER NORMAL VARIANT [MEETS CRITERIA IN ONE OF: R(aVL), S(V1), R(V5), R(V5/V6)+S(V1)] No previous ECG available for comparison Electronically Signed On 08-10-2024 17:40:48 CDT by Dayana Doss M.D.
--- NOTE | 2024-08-10 12:46 | PC.NURSE ---
attempted to draw patient labs, Dr. Harper in room with patient at this point and x-ray waiting to do their scans.
[2024-08-10 12:59] LABS: Basophils Absolute Auto 0.1 K/mm3 (0.0-0.1); Eosinophils Absolute Auto 0.1 K/mm3 (0-0.3); Eosinophils Percent Auto 2.5 % (0-4.4); Hematocrit 43.9 % (42.0-52.0); Hemoglobin 14.6 g/dL (14.0-18.0); Immature Granulocyte Absolute 0.03 K/mm3 (0.00-0.031); Immature Granulocyte Percent A 0.6 % (0-0.5); Lymphocytes Percent Auto 21.3 % (18.3-44.2); Mean Corpuscular HGB Conc 33.3 g/dl (32-36); Mean Corpuscular Hemoglobin 27.7 pg (26-34); Mean Corpuscular Volume 83.3 fl (80-100); Mean Platelet Volume 9.9 fl (7.4-10.4); Monocytes Absolute Auto 0.5 K/mm3 (0.1-0.6); Monocytes Percent Auto 9.5 % (2.6-8.5); Neutrophils Absolute Auto 3.4 K/mm3 (1.3-6.7); Neutrophils Percent Auto 65.1 % (45.5-73.1); Platelet Count Result 298 k/mm3 (150-375); Red Blood Count 5.27 M/mm3 (4.6-6.20); Red Cell Distribution Width 12.4 % (11.5-14.5); White Blood Count 5.2 K/mm3 (4.5-10.0)
[2024-08-10 13:00] LABS: Add Urine Microscopic? NO; Appearance Urine Clear (Clear); Bilirubin Urine Negative (Negative); Blood Urine Negative (Negative); Color Urine Yellow (Yellow); Glucose Urine UA Negative (Negative); Ketones Urine Negative (Negative); Leukocyte Esterase Ur Negative LEU/UL (Negative); Nitrate Urine Negative (Negative); Protein Urine Negative (Negative); Specific Grav Ur 1.009 (1.001-1.035)
[2024-08-10 13:15] LABS: Amphetamine Screen Urine Negative (Negative); Barbiturate Screen Urine Negative (Negative); Benzodiazepines Screen Urine Negative (Negative); Cannabinoid Screen Urine Negative (Negative); Cocaine Screen Urine Negative (Negative); Methadone Screen Urine Negative (Negative); Opiate Screen Urine Negative (Negative); Phencyclidine Screen Urine Negative (Negative)
[2024-08-10 13:16] LABS: Alanine Aminotransferase 21 U/L (6-50); Albumin Level 4.3 g/dL (3.5-5.1); Alkaline Phosphatase 103 U/L (38-126); Anion Gap 8 mmol/L (4-12); Aspartate Amino Transferase 25 U/L (17-59); Bilirubin,Total 0.6 mg/dL (0.2-1.3); Blood Urea Nitrogen 11 mg/dL (9-20); Calcium 9.2 mg/dL (8.4-10.2); Carbon Dioxide 28 mmol/L (22-30); Chloride 95 mmol/L (98-107); Estimated CRCL calculation 54 ml/min; Estimated Glomerular Filt Rate > 60; Glucose 92 mg/dL (65-110); Potassium 4.1 mmol/L (3.4-5.0); Sodium 131 mmol/L (137-145)
[2024-08-10 13:18] LABS: Ethanol < 10 mg/dL (<10)
--- NOTE | 2024-08-10 13:21 | PC.NURSE ---
patient ambulated to bathroom and then taken by wheelchair down to CT
[2024-08-10 13:28] LABS: Troponin I < 0.012 ng/mL (0.000-0.034)
[2024-08-10 13:31] LABS: INR 0.9; NT Pro B Type Natriuretic Pept 58 pg/mL (19.9-100); Prothrombin Time 12.7 Seconds (11.1-14.7)
[2024-08-10 13:32] LABS: Partial Thromboplastin Time 31.2 Seconds (22.3-36.8)
--- NOTE | 2024-08-10 14:03 | PC.NURSE ---
Patient ambulated to the restroom with steady gate
[2024-08-10] MEDS: MECLIZINE HCL 25 MG TABLET PO (15:45)
--- NOTE | 2024-08-10 17:36 | PC.NURSE ---
Patient ambulated to the restroom with steady gate
== END 2024-08-10 19:46 | disposition home or self-care (01) ==
PROVIDERS: Emergency Provider Student in an Organized Health Care Education/Training Program; PCP Family Medicine
DX: R42 Dizziness and giddiness (principal); H93.19 Tinnitus, unspecified ear; E87.1 Hypo-osmolality and hyponatremia; I34.1 Nonrheumatic mitral (valve) prolapse; I10 Essential (primary) hypertension; E78.2 Mixed hyperlipidemia; N40.0 Benign prostatic hyperplasia without lower urinary tract symptoms; K58.9 Irritable bowel syndrome, unspecified; H35.30 Unspecified macular degeneration; H59.029 Cataract (lens) fragments in eye following cataract surgery, unspecified eye; F41.1 Generalized anxiety disorder; F32.4 Major depressive disorder, single episode, in partial remission; Z96.641 Presence of right artificial hip joint; Z86.0100 Personal history of colon polyps, unspecified; Z79.899 Other long term (current) drug therapy; I45.10 Unspecified right bundle-branch block
CPT/HCPCS: 36415; 70496; 70498; 71045; 80053; 80307; 81003; 82077; 83880; 84484; 85025; 85610; 85730; 93005; 99284; A9270; Q9967

== ENCOUNTER 2024-08-12 08:47 | Outpatient (CLI) | payer MEDICARE, SELFPAY ==
--- NOTE | ~2024-08-12 | MR_ITS ---
EXAMINATION: MR brain IAC wo con DATE: 08/12/2024 09:34 INDICATION: Other cerebral infarction. TECHNIQUE: Magnetic resonance imaging (MRI) of the brain, brainstem, and internal auditory canals was performed without intravenous contrast. COMPARISON: Brain MRI 09/05/2018, head CT 08/10/2024 FINDINGS: There are acute infarcts in the right cerebellum. There are scattered areas of nonspecific increased T2-weighted signal intensity in the cerebral white matter, which is within normal limits fo r the patient's age. There is no intracranial hemorrhage or abnormal mass lesion. There is a mucous r etention cyst in right maxillary sinus. There are likely changes of right ocular lens replacement cassie mercy. The mastoid air cells are normal. IMPRESSION: 1. 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 Reviewed, dictated and finalized at location A.
== END 2024-08-12 08:48 | disposition home or self-care (01) ==
LOC: GOSHIMG 08:47
PROVIDERS: PCP Family Medicine; Visit Provider Family Medicine
DX: I63.89 Other cerebral infarction (principal)
CPT/HCPCS: 70551

== ENCOUNTER 2024-09-26 09:15 | Outpatient (CLI) | payer MEDICARE, SELFPAY ==
--- OUTSIDE RECORDS SUMMARY | 2024-09-26 09:29 | XMS_ITS | Encounter Summary ---
[facility] Organization [facility] Address [address] [place] [address] Care Team Providers Care Grant Coordinator Name Role Phone Unavailable Primary Care Provider Unavailabl e Encounter Details Date Type Department Care Team (Late st Contact Info) Description 09/24/2024 External Device Data [facility] ABSTRACTION Provider, Abstract [...]
--- OUTSIDE RECORDS SUMMARY | 2024-09-26 09:29 | XMS_ITS | Clinical Summary ---
Author Organization [facility] Address [address] [place] [address] Care Team Providers Care Master Printer Name Role Phone Unavailable Primary Care Provider Unavailabl e Allergies Active Allergy Reactions Criticality Noted Date Comments Adjuvant As01b (Pf)Vial 1 Of 2 Other (See Comments) 01/27/2024 PT DOES NOT REMEMBER REACTION Medications QUEtiapine (SEROquel) 25 mg tablet take one tablet twice daily 180 Tablet 022 Active nebivoloL (BYSTOLIC) 20 mg Tablet Take 1 Tablet (20 mg) by mouth daily. 90 Tablet 3 4 5:00 PM CDT 024 Active nebivoloL (BYSTOLIC) 20 mg Tablet Take 1 Tablet (20 mg) by mouth daily. 90 Tablet 3 5 3:24 PM CDT 024 Active finasteride (PROSCAR) 5 mg tablet Take 1 Tablet (5 mg) by mouth daily. 90 Tablet 4 5 3:24 PM CDT 024 Active alfuzosin (UROXATRAL) 10 mg Extended Release 24 hour tablet Take 1 Tablet (10 mg) by mouth daily at bedtime. 30 Tablet 12 4 11:08 AM FOOT GATHERER 024 Active hydrocortisone acetate (Anucort-HC) 25 mg Suppository Unwrap and Insert 1 Suppository (25 mg) by rectum 2 times daily. 12 Suppository 1 024 Active busPIRone (BUSPAR) 10 mg tablet Take 1 Tablet (10 mg) by mouth 2 times daily. 180 Tablet 1 4 8:21 AM FOOT GATHERER 024 Active alfuzosin (UROXATRAL) 10 mg Extended Release 24 hour tablet Take 1 Tablet (10 mg) by mouth daily. Take after the same meal each day. 90 Tablet 3 5 3:24 PM CDT 024 Active finasteride (PROSCAR) 5 mg tablet Take 1 Tablet (5 mg) by mouth daily. 90 Tablet 3 4 12:58 PM FOOT GATHERER 024 Active buPROPion HCL (WELLBUTRIN XL) 150 mg Extended Release 24 hour tablet Take 1 Tablet (150 mg) by mouth daily in the morning. 90 Tablet 1 5 3:24 PM CDT 025 Active lisinopriL (PRINIVIL) 20 mg tablet Take 1 Tablet (20 mg) by mouth daily in the evening. 90 Tablet 1 5 4:55 PM CDT 025 Active omeprazole (PriLOSEC) 40 mg Capsule, Delayed Release(E.C.) Take 1 Capsule (40 mg) by mouth daily. 30 Capsule 5 5 11:20 AM FOOT GATHERER 025 Active cloNIDine HCL (CATAPRES) 0.1 mg tablet Take 1 Tablet (0.1 mg) by mouth 2 times daily. 180 Tablet 1 5 4:43 PM FOOT GATHERER 025 Active meloxicam (MOBIC) 15 mg tablet Take 1 Tablet (15 mg) by mouth daily. 90 Tablet 1 5 12:35 PM CDT 025 Active QUEtiapine (SEROquel) 50 mg tablet Take 1 Tablet (50 mg) by mouth 2 times daily. 180 Tablet 1 5 6:05 PM CDT 025 Active rosuvastatin (CRESTOR) 5 mg tablet Take 1 Tablet (5 mg) by mouth daily. 90 Tablet 1 5 6:05 PM CDT 025 Active doxepin (SINEquan) 10 mg/mL Concentrate Take 6 mL (60 mg) by mouth daily. 540 mL 1 5 4:55 PM CDT 025 Active clopidogreL (PLAVIX) 75 mg Tablet Take 1 Tablet (75 mg) by mouth daily. 90 Tablet 1 5 6:29 PM CDT 025 Active rosuvastatin (CRESTOR) 20 mg tablet Take 1 Tablet (20 mg) by mouth daily. 90 Tablet 1 5 6:29 PM CDT 025 Active doxepin (SINEquan) 50 mg capsule Take 1 Capsule (50 mg) by mouth daily at bedtime. 90 Capsule 1 025 Active guanFACINE (INTUNIV) 2 mg Extended Release 24 hour tablet Take 1 Tablet (2 mg) by mouth daily. 90 Tablet 1 5 12:15 PM CDT 025 Active cloNIDine HCL (CATAPRES) 0.1 mg tablet Take 1 Tablet (0.1 mg) by mouth 2 times daily. 180 Tablet 1 025 2024 Discontinued guanFACINE (INTUNIV) 2 mg Extended Release 24 hour tablet Take 1 Tablet (2 mg) by mouth daily. 180 Tablet 025 2024 Discontinued Encounters Date Type Department Care Team Description 09/24/2024 External Device Data STL ABSTRACTION Provider, Abstract 08/07/2024 External Device Data [facility] ABSTRACTION Provider, [...]
--- OUTSIDE RECORDS SUMMARY | 2024-09-26 09:29 | XMS_ITS | Referral Summary ---
Author Organization [facility] [address] [facility] [address] Address [address] [place] [address] Care Team Providers Care Push Button Switch Assembler Name Role Phone Adriano Sosa MD Primary Care Provider +1 [phone] Encounters Date Type Department Care Team Description 07/01/2024 11:00 AM CAUSTIC LOADER Office Visit [facility] Cardiology [address] [facility] [address] [place] [address] Isaura Childs MD Essential hypertension [...] 03/17/2011 Assessment & Plan (06/28/2022 2:01 PM CAUSTIC LOADER): 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 Not on file Not on fi le Last Filed Vital Signs Vital Sign Reading Time Taken Comments Blood Pressure 139/84 07/01/2024 10:57 AM CAUSTIC LOADER Pulse 67 07/01/2024 10:57 AM CAUSTIC LOADER Temperature - - Respiratory Rate 14 01/17/2023 11:4 8 AM CDT Oxygen Saturation 98% 07/01/2024 10: 57 AM CAUSTIC LOADER Inhaled Oxygen Concentration - - Weight 93.3 kg (205 lb 11.2 oz) 025 10:57 AM CAUSTIC LOADER Height 177.8 cm (5' 10 ) 07/01/2024 10: 57 AM CAUSTIC LOADER Body Mass Index 29.51 07/01/2024 10:57 AM CAUSTIC LOADER Plan of Treatment Not on file Insurance MEDICARE [facility] MEDICARE BLUE CROSS MEDICARE SUPPLEMENT MEDICARE [facility] Care Teams Push Button Switch Assembler Relationship Specialty Start Date End Date Adriano Sosa MD PCP - General 09/12/06
--- OUTSIDE RECORDS SUMMARY | 2024-09-26 09:29 | XMS_ITS | Clinical Summary ---
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 Not on file Not on fi le Obstetrics History Last Filed Vital Signs Vital Sign Reading Time Taken Comments Blood Pressure 139/84 07/01/2024 10:57 AM TARE WORKER Pulse 67 07/01/2024 10:57 AM TARE WORKER Temperature - - Respiratory Rate 14 01/17/2023 11:4 8 AM CDT Oxygen Saturation 98% 07/01/2024 10: 57 AM TARE WORKER Inhaled Oxygen Concentration - - Weight 93.3 kg (205 lb 11.2 oz) 025 10:57 AM TARE WORKER Height 177.8 cm (5' 10 ) 07/01/2024 10: 57 AM TARE WORKER Body Mass Index 29.51 07/01/2024 10:57 AM TARE WORKER Plan of Treatment Health Maintenance Due Date Last Done Comments Fall Risk Assessment 1945 Hepatitis C Screening 1945 DTaP/Tdap/Td Vaccine (1 - Tdap) 1958 Hepatitis B Screening 1965 Pneumococcal vaccine 65+ (1 of 1 - PCV) 1997 Well Visit 65+ 2012 Zoster Vaccine (2 of 2) 11/05/2017 09/10/2017 Depression Screening 03/06/2020 03/06/2019, 03/06/20 19 Influenza Vaccine (#1) 2024 Insurance MEDICARE [facility] MEDICARE BLUE CROSS MEDICARE SUPPLEMENT MEDICARE [facility] Care Teams Fruit Vendor Relationship Specialty Start Date End Date Adriano Sosa MD PCP - General 09/12/06
--- OUTSIDE RECORDS SUMMARY | 2024-09-26 09:29 | XMS_ITS | Clinical Summary ---
Author Organization [facility] Address [address] [place] [address] Phone Care Team Providers Care Rubber Mill Operator Name Role Phone Adriano Sosa MD Primary Care Provider +1- [phone] Social History Tobacco Use Types Packs/Day Years [...] age to complete this topic Insurance MEDICARE Member Subscriber Plan / Payer (Ef fective for All Dates) Name:Sher Hicks Member ID:[id number] Relation to Subscriber:Self Name:SHER HICKS Subscriber ID:[id number] Payer ID:[id number] Group ID:Not on file Type:Not on file Address: [address] [facility] [place] [address] [facility] Care Teams Rubber Mill Operator Relationship Specialty Start Date End Date Adriano Sosa MD [address] [place] [address] [address] [place], [place] [id number] PCP - General Family Medicine 02/29/16
--- NOTE | 2024-09-26 09:37 | ECHO_ITS ---
Patient Info Name: Sher Hicks Age: 79 years : 1945 Gender: Male Ht: 70 in Wt: 200 lbs BSA: 2.14 m2 HR: 64 bpm BP: 207 / 115 mmHg Technical Quality: Good Exam Date: 09/26/2024 9:45 AM Exam Location: Echo Lab Patient Status: Outpatient Admit Date: 09/26/2024 Staff Ordering Physician: Heriberto Goyal MD Instructor Industrial Design: Ese Go RDCS Attending Provider: Heriberto Goyal MD Referring Physician: Jay Jay CAMPOS; Exam Type: CA echo doppler w bubble study Study Info Complete two-dimensional, color flow and Doppler transthoracic echocardiogram is performed with agitated saline. Contrast/Agitated Saline Contrast/Ag. Saline: Agitated Saline Amount: 12.00 ml IV Access Condition: patent with no signs of infiltration New IV Access: Left Site Condition: IV removed Summary 1. Left ventricular chamber dimension is normal. 2. Left ventricular systolic function is normal, estimated at 60-65%. 3. There is mild concentric increased left ventricular wall thickness. 4. The left ventricular diastolic function is grade I diastolic dysfunction. 5. E/e' 7 is not elevated. 6. There is mild aortic valve sclerosis. 7. There is trace aortic valve regurgitation. 8. There is trace mitral valve regurgitation. 9. There is trace tricuspid valve regurgitation. 10. No pulmonary hypertension, estimated pulmonary arterial systolic pressure is 30 mmHg. Left Ventricle E/e' 7 is not elevated. Left ventricular chamber dimension is normal. Left ventricular systolic function is normal, estimated at 60-65%. There is mild concentric increased left ventricular wall thickness. The left ventricular diastolic function is grade I diastolic dysfunction. Right Ventricle Right ventricular chamber dimension is normal. Right ventricular systolic function is normal. Left Atria Left atrial chamber dimension is normal. Right Atria Right atrial chamber dimension is normal. Atrial Septum Agitated saline injection with valsalva maneuver opacified right side cardiac chambers without shunt to left side cardiac chambers. Intact interatrial septum visualized by 2D and agitated saline imaging. Aortic Valve The aortic valve is trileaflet. There is mild aortic valve sclerosis. There is no aortic valve stenosis. There is trace aortic valve regurgitation. Pulmonic Valve There is no pulmonic regurgitation. Mitral Valve There is no mitral valve stenosis. There is trace mitral valve regurgitation. Tricuspid Valve There is trace tricuspid valve regurgitation. No pulmonary hypertension, estimated pulmonary arterial systolic pressure is 30 mmHg. Pericardium/Pleural There is no pericardial effusion. Inferior Vena Cava Normal inferior vena cava with >50% collapse upon inspiration consistent with normal right atrial pressure, 5 mmHg. Aorta The aortic root size at the sinus of Valsalva is normal. Left Ventricular Outflow Tract Name Value Normal LVOT 2D LVOT Diameter 2.0 cm LVOT Doppler LVOT Peak Gradient 6 mmHg LVOT Mean Gradient 3 mmHg LVOT VTI 29 cm LVOT VTI/AV VTI Ratio 1.0 LVOT Stroke Volume 94 ml LVOT CO 15.5 l/min LVOT CI 7.2 l/min/m2 Pulmonic Valve Name Value Normal PV Doppler PV Peak Gradient 3 mmHg Mitral Valve Name Value Normal MV Doppler MV Decel A[place]ac 234 cm/s2 MV PHT 71 ms MV Area (PHT) 3.1 cm2 4.0-5.0 MV Diastolic Function MV E Peak Velocity 58 cm/s MV A Peak Velocity 83 cm/s MV E/A 0.7 MV Decel Time 246 ms MV Annular TDI MV E/e' (Septal) 10.4 <=8.0 MV E/e' (Lateral) 5.9 <=8.0 MV E/e' (Average) 8.2 Tricuspid Valve Name Value Normal TV Regurgitation Doppler TR Peak Velocity 252 cm/s TR Peak Gradient 25 mmHg Estimated PAP/RSVP RA Pressure 5 mmHg <=5 PA Systolic Pressure 30 mmHg <36 RV Systolic Pressure 30 mmHg <36 Aorta Name Value Normal Ascending Aorta Ao Root Diameter (MM) 3.6 cm Ao Root Diam Index (MM) 1.7 cm/m2 Aortic Valve Name Value Normal AV Doppler AV Peak Velocity 106 cm/s AV Peak Gradient 4 mmHg AV Mean Gradient 3 mmHg AV VTI 28 cm AV Area (Cont Eq VTI) 3.4 cm2 >=3.0 AV Area (Cont Eq Tulio) 3.7 cm2 AV Regurgitation 2D LVOT Area 3.3 cm2 Ventricles Name Value Normal LV Dimensions 2D/MM IVS Diastolic Thickness (2D) 1.2 cm 0.6-1.0 LVID Diastole (2D) 4.2 cm 4.2-5.8 LVIW Diastolic Thickness (2D) 1.2 cm 0.6-1.0 LVID Systole (2D) 2.8 cm 2.5-4.0 LVOT Diameter 2.0 cm LV Mass (2D Cubed) 178.63 g 88.00-224.00 LV Mass Index (2D Cubed) 84 g/m2 49-115 Relative Wall Thickness (2D) 0.55 LV Fractional Shortening/Ejection Fraction 2D/MM LV Fractional Shortening (2D) 35 % 25-43 LV EF (2D Teicholz) 64 % 52-72 LV Diastolic Volume (4C MOD) 111 ml LV EF (4C MOD) 75 % LV Diastolic Volume (2C MOD) 112 ml LV EF (2C MOD) 74 % LV Diastolic Volume (BP MOD) 114 ml 62-150 LV Diastolic Volume Index (BP MOD) 53 ml/m2 34-74 LV Systolic Volume (BP MOD) 29 ml 21-61 LV Systolic Volume Index (BP MOD) 14 ml/m2 11-31 LV EF (BP MOD) 74 % 52-72 LV Diastolic Length (4C) 9.0 cm LV Systolic Length (4C) 7.6 cm LV Stroke Volume (4C MOD) 83 ml RV Dimensions 2D/MM RVID Diastole (2D) 4.2 cm 2.5-3.5 Atria Name Value Normal LA Dimensions LA Dimension (MM) 4.1 cm 3.0-4.1 LA Volume (4C A-L) 54 ml LA Volume (BP A-L) 58 ml RA Dimensions RA Area (4C) 16.3 cm2 <=18.0 Report Signatures
== END 2024-09-26 09:16 | disposition home or self-care (01) ==
LOC: ANHCARD 09:16
PROVIDERS: PCP Family Medicine; Visit Provider Psychiatry & Neurology Neurology
DX: R93.1 Abnormal findings on diagnostic imaging of heart and coronary circulation (principal); I35.0 Nonrheumatic aortic (valve) stenosis
CPT/HCPCS: 93306; 96375

== ENCOUNTER 2024-09-29 05:42 | Emergency (ER) | payer MEDICARE, SELFPAY ==
--- NOTE | ~2024-09-29 | CT_ITS ---
EXAMINATION: CT brain wo con DATE: 09/29/2024 07:20 INDICATION: Hypertension. Recent CVA. TECHNIQUE: Computed tomography (CT) of the head was performed without intravenous contrast. The dose- length product was 605.33 mGy-cm. Automated exposure control and iterative reconstruction technique w ere employed. COMPARISON: MRI dated 08/12/2024 FINDINGS: Generalized atrophy. There are scattered mild periventricular and subcortical white matter changes, most likely related to small vessel ischemic disease (microangiopathy). No ventriculomegaly or midline shift. There is intracranial atherosclerosis. Basilar cisterns are patent. Paranasal sinus es and mastoids are pneumatized. No depressed skull fractures. IMPRESSION: 1. No acute intracranial abnormality. Reviewed, dictated and finalized at location A.
--- OUTSIDE RECORDS SUMMARY | 2024-09-29 05:44 | XMS_ITS | Clinical Summary ---
Author Organization [facility] Address [address] [place] [address] Care Team Providers Care Shoe Folder Name Role Phone Unavailable Primary Care Provider [...] bedtime. 30 Tablet 12 4 11:08 AM NURSE ORTHO 024 Active hydrocortisone acetate (Anucort-HC) 25 mg Suppository Unwrap and Insert 1 Suppository (25 mg) by rectum 2 times daily. 12 Suppository 1 024 Active busPIRone (BUSPAR) 10 mg tablet Take 1 Tablet (10 mg) by mouth 2 times daily. 180 Tablet 1 4 8:21 AM NURSE ORTHO 024 Active alfuzosin (UROXATRAL) 10 mg Extended Release 24 hour tablet Take 1 Tablet (10 mg) by mouth daily. Take after the same meal each day. 90 Tablet 3 5 3:24 PM CDT 024 Active finasteride (PROSCAR) 5 mg tablet Take 1 Tablet (5 mg) by mouth daily. 90 Tablet 3 4 12:58 PM NURSE ORTHO 024 Active buPROPion HCL (WELLBUTRIN XL) 150 [...] daily. 30 Capsule 5 5 11:20 AM NURSE ORTHO 025 Active cloNIDine HCL (CATAPRES) 0.1 mg tablet Take 1 Tablet (0.1 mg) by mouth 2 times daily. 180 Tablet 1 5 4:43 PM NURSE ORTHO 025 Active meloxicam (MOBIC) 15 mg tablet [...] 1 5 12:15 PM CDT 025 Active amoxicillin (AMOXIL) 500 mg capsule Take As Needed for Procedure; 4 capsules 1 hour before procedure 20 Capsule 1 5 1:23 PM CDT 025 Active cloNIDine HCL (CATAPRES) [...]
--- OUTSIDE RECORDS SUMMARY | 2024-09-29 05:44 | XMS_ITS | Encounter Summary ---
Author Organization [facility] Address [address] [place] [address] Care Team Providers Care Process Helper Name Role Phone Adriano Sosa MD Primary Care Provider +1 -[phone] Encounter Details Date Type Department Care Team (Late st Contact Info) Description 09/27/2024 Telephone [facility] Cardiology [address] [place] [address] Isaura Childs MD [address] [place] [address] Social History Tobacco Use Types Packs/Day Years Used Date Smoking Tobacco: Never Alcohol Use Standard Drinks/Week Comments Never 0 [...] on file Legal Sex Male 12:21 AM LEGAL STENOGRAPHER Gender Identity Not on file Sexual Orientation Not on file 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 Pt said his PCP was trying to handle hisBP medications but then recommended he contact JF to see another adjustment needs to be made. Per JF's last OV note pt does not check his BP at home d/t anxiety. Pt confirmed that this is still true-he said his anxiety is really bad so he doesn't check his BP at home. Discussed that it is hard for us to manage if we dont know how his BP is running more often. Pt said he just had an echo done and his BP at the start was 207/115 and at the end of it was 202/111-pt said PCP was aware of these readings and advised him to call us. Pt is currently taking lisinopril 20mg daily and bystolic 20mg daily. Pt does not take clonidine anymore as it caused him to be exhausted. Pt is scheduled to see [facility] for hosp f/u on 10/23 but is asking if JF would want to make any other changes before then? Will forward to JF. Please advise, thank you! * Telephone Encounter - Natasha Garay - 09/27/2024 1:57 PM CDT Pt states on 08/07 he had a stroke so he went to . Afterwards he was referred to a neurologist at because he was having a hard time with balance and walking. He had an echo yesterday and he recently wore a 7 day monitor. States his BP has still been high and not able to be controlled. Requesting call to discuss. Contact: documented in this encounter Plan of Treatment Not on file documented as of this encounter Visit Diagnoses Not on filedocumented in this encounter Care Teams Process Helper Relationship Specialty Start Date End Date Adriano Sosa MD PCP - General 09/12/06 documented as of this encounter
--- OUTSIDE RECORDS SUMMARY | 2024-09-29 05:44 | XMS_ITS | Clinical Summary ---
Author Organization [facility] Address [address] [place] [address] Phone Care Team Providers Care Metallurgy Teacher Name Role Phone Adriano Sosa MD Primary Care Provider +1- [phone] Social History Tobacco Use Types Packs/Day Years [...] to complete this topic Insurance MEDICARE [facility] Care Teams Metallurgy Teacher Relationship Specialty Start Date End Date Adriano Sosa MD [address] [place] [address] [address] [place], [place] [id number] PCP - General Family Medicine 02/29/16
--- OUTSIDE RECORDS SUMMARY | 2024-09-29 05:44 | XMS_ITS | Referral Summary ---
Author Organization [facility] [place] [address] Address [address] [place] [address] Care Team Providers Care Stock Manager Name Role Phone Adriano Sosa MD Primary Care Provider [phone] [phone] Encounters Date Type Department Care Team Description 09/27/2024 Telephone [facility] Cardiology [address] [place] [address] Isaura Childs MD from Last 3 Months Allergies Active Allergy [...] 03/17/2011 Assessment & Plan (06/28/2022 2:01 PM RADIATION CONTROL SPECIALIST): 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 on file Not on fi le Last Filed Vital Signs Vital Sign Reading Time Taken Comments Blood Pressure 139/84 07/01/2024 10:57 AM RADIATION CONTROL SPECIALIST Pulse 67 07/01/2024 10:57 AM RADIATION CONTROL SPECIALIST Temperature - - Respiratory Rate 14 01/17/2023 11:4 8 AM CDT Oxygen Saturation 98% 07/01/2024 10: 57 AM RADIATION CONTROL SPECIALIST Inhaled Oxygen Concentration - - Weight 93.3 kg (205 lb 11.2 oz) 025 10:57 AM RADIATION CONTROL SPECIALIST Height 177.8 cm (5' 10 ) 07/01/2024 10: 57 AM RADIATION CONTROL SPECIALIST Body Mass Index 29.51 07/01/2024 10:57 AM RADIATION CONTROL SPECIALIST Plan of Treatment Not on file Insurance MEDICARE [facility] MEDICARE BLUE CROSS MEDICARE SUPPLEMENT MEDICARE [facility] Care Teams Stock Manager Relationship Specialty Start Date End Date Adriano Sosa MD PCP - General 09/12/06
--- OUTSIDE RECORDS SUMMARY | 2024-09-29 05:44 | XMS_ITS | Clinical Summary ---
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 Not on file Not on fi le Obstetrics History Last Filed Vital Signs Vital Sign Reading Time Taken Comments Blood Pressure 139/84 07/01/2024 10:57 AM SOFTWARE QUALITY MANAGER Pulse 67 07/01/2024 10:57 AM SOFTWARE QUALITY MANAGER Temperature - - Respiratory Rate 14 01/17/2023 11:4 8 AM CDT Oxygen Saturation 98% 07/01/2024 10: 57 AM SOFTWARE QUALITY MANAGER Inhaled Oxygen Concentration - - Weight 93.3 kg (205 lb 11.2 oz) 025 10:57 AM SOFTWARE QUALITY MANAGER Height 177.8 cm (5' 10 ) 07/01/2024 10: 57 AM SOFTWARE QUALITY MANAGER Body Mass Index 29.51 07/01/2024 10:57 AM SOFTWARE QUALITY MANAGER Plan of Treatment Health Maintenance Due Date Last Done Comments Fall Risk Assessment 1945 Hepatitis C Screening 1945 DTaP/Tdap/Td Vaccine (1 - Tdap) 1958 Hepatitis B Screening 1965 Pneumococcal vaccine 65+ (1 of 1 - PCV) 1997 Well Visit 65+ 2012 Zoster Vaccine (2 of 2) 11/05/2017 09/10/2017 Depression Screening 03/06/2020 03/06/2019, 03/06/20 19 Influenza Vaccine (Season Ended) 2025 Insurance MEDICARE [facility] MEDICARE BLUE CROSS MEDICARE SUPPLEMENT MEDICARE [facility] Care Teams Concrete Paving Machine Operator Relationship Specialty Start Date End Date Adriano Sosa MD PCP - General 09/12/06
--- NOTE | 2024-09-29 05:47 | ECG_ITS ---
Test Date: 2024-09-29 05:56:37 Measurements Intervals [place] Rate: 79 P: 10 ME: 183 QRS: 4 QRSD: 113 T: 52 QT: 390 QTc: 447 Interpretive Statements SINUS RHYTHM INCOMPLETE RIGHT BUNDLE BRANCH BLOCK [90+ ms QRS DURATION, TERMINAL R IN V1/V2, 40+ ms S IN I/aVL/V4/V5/V6] Compared to ECG 08/10/2024 12:56:59 No significant changes Electronically Signed On 09-30-2024 16:15:00 CDT by Pedro Luis Hand M.D.
[2024-09-29 05:49] VITALS: BP 208/94; PULSE 75; RESP 13; TEMP 36.8; O2SAT 98
[2024-09-29 05:59] LABS: Basophils Absolute Auto 0.1 K/mm3 (0.0-0.1); Basophils Percent Auto 1.2 % (0.2-1.2); Eosinophils Absolute Auto 0.2 K/mm3 (0-0.3); Eosinophils Percent Auto 3.9 % (0-4.4); Hematocrit 42.2 % (42.0-52.0); Hemoglobin 14.2 g/dL (14.0-18.0); Immature Granulocyte Absolute 0.03 K/mm3 (0.00-0.031); Immature Granulocyte Percent A 0.5 % (0-0.5); Lymphocytes Absolute Auto 1.77 K/mm3 (0.9-3.2); Lymphocytes Percent Auto 30.3 % (18.3-44.2); Mean Corpuscular HGB Conc 33.6 g/dl (32-36); Mean Corpuscular Hemoglobin 27.7 pg (26-34); Mean Corpuscular Volume 82.3 fl (80-100); Mean Platelet Volume 9.4 fl (7.4-10.4); Monocytes Absolute Auto 0.5 K/mm3 (0.1-0.6); Monocytes Percent Auto 9.2 % (2.6-8.5); Neutrophils Absolute Auto 3.2 K/mm3 (1.3-6.7); Neutrophils Percent Auto 54.9 % (45.5-73.1); Platelet Count Result 275 k/mm3 (150-375); Red Blood Count 5.13 M/mm3 (4.6-6.20); Red Cell Distribution Width 12.5 % (11.5-14.5); White Blood Count 5.8 K/mm3 (4.5-10.0)
[2024-09-29 06:05] VITALS: PULSE 69; RESP 14; O2SAT 97
[2024-09-29 06:09] LABS: Alanine Aminotransferase 21 U/L (6-50); Albumin Level 4.3 g/dL (3.5-5.1); Alkaline Phosphatase 104 U/L (38-126); Anion Gap 8 mmol/L (4-12); Aspartate Amino Transferase 30 U/L (17-59); Bilirubin,Total 0.5 mg/dL (0.2-1.3); Blood Urea Nitrogen 13 mg/dL (9-20); Carbon Dioxide 25 mmol/L (22-30); Chloride 101 mmol/L (98-107); Estimated CRCL calculation 63 ml/min; Estimated Glomerular Filt Rate > 60; Glucose 98 mg/dL (65-110); Potassium 4.3 mmol/L (3.4-5.0); Sodium 134 mmol/L (137-145)
--- OUTSIDE RECORDS SUMMARY | 2024-09-29 06:29 | XMS_ITS | Clinical Summary ---
Author Organization [facility] Address [address] [place] [address] Phone Care Team Providers Care Benzene Still Utility Operator Name Role Phone Adriano Sosa MD Primary Care Provider [phone]- [phone] Social History Tobacco Use Types Packs/Day Years [...] age to complete this topic Insurance MEDICARE [facility] Care Teams Benzene Still Utility Operator Relationship Specialty Start Date End Date Adriano Sosa MD [address] [place] [address] [address] [place], [place] [id number] PCP - General Family Medicine 02/29/16
--- OUTSIDE RECORDS SUMMARY | 2024-09-29 06:29 | XMS_ITS | Referral Summary ---
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 Not on file Not on fi le Last Filed Vital Signs Vital Sign Reading Time Taken Comments Blood Pressure 139/84 07/01/2024 10:57 AM LEATHER REPAIRER Pulse 67 07/01/2024 10:57 AM LEATHER REPAIRER Temperature - - Respiratory Rate 14 01/17/2023 11:4 8 AM CDT Oxygen Saturation 98% 07/01/2024 10: 57 AM LEATHER REPAIRER Inhaled Oxygen Concentration - - Weight 93.3 kg (205 lb 11.2 oz) 025 10:57 AM LEATHER REPAIRER Height 177.8 cm (5' 10 ) 07/01/2024 10: 57 AM LEATHER REPAIRER Body Mass Index 29.51 07/01/2024 10:57 AM LEATHER REPAIRER Plan of Treatment Not on file Insurance MEDICARE [facility] MEDICARE BLUE CROSS MEDICARE SUPPLEMENT MEDICARE [facility] Care Teams Director Of Catering Relationship Specialty Start Date End Date Adriano Sosa MD PCP - General 09/12/06
--- OUTSIDE RECORDS SUMMARY | 2024-09-29 06:29 | XMS_ITS | Clinical Summary ---
Author Organization [facility] Address [address] [place] [place] [address] Care Team Providers Care Services Program Manager Name Role Phone Unavailable Primary Care Provider [...] bedtime. 30 Tablet 12 4 11:08 AM FOLLOW UP SPECIALIST 024 Active hydrocortisone acetate (Anucort-HC) 25 mg Suppository Unwrap and Insert 1 Suppository (25 mg) by rectum 2 times daily. 12 Suppository 1 024 Active busPIRone (BUSPAR) 10 mg tablet Take 1 Tablet (10 mg) by mouth 2 times daily. 180 Tablet 1 4 8:21 AM FOLLOW UP SPECIALIST 024 Active alfuzosin (UROXATRAL) 10 mg Extended Release 24 hour tablet Take 1 Tablet (10 mg) by mouth daily. Take after the same meal each day. 90 Tablet 3 5 3:24 PM CDT 024 Active finasteride (PROSCAR) 5 mg tablet Take 1 Tablet (5 mg) by mouth daily. 90 Tablet 3 4 12:58 PM FOLLOW UP SPECIALIST 024 Active buPROPion HCL (WELLBUTRIN XL) 150 [...] daily. 30 Capsule 5 5 11:20 AM FOLLOW UP SPECIALIST 025 Active cloNIDine HCL (CATAPRES) 0.1 mg tablet Take 1 Tablet (0.1 mg) by mouth 2 times daily. 180 Tablet 1 5 4:43 PM FOLLOW UP SPECIALIST 025 Active meloxicam (MOBIC) 15 mg tablet [...]
--- OUTSIDE RECORDS SUMMARY | 2024-09-29 06:29 | XMS_ITS | Encounter Summary ---
Author Organization [facility] Address [address] [place] [address] Care Team Providers Care Fusing Line Inspector Name Role Phone Adriano Sosa MD Primary Care Provider [phone] [phone] Encounter Details Date Type Department Care Team (Late st Contact Info) Description 09/27/2024 Telephone [facility] Medical [facility] Cardiology [address] [place] [address] Isaura Childs MD [address] [place] [id number] Social History Tobacco Use Types Packs/Day [...] on file Legal Sex Male 12:21 AM AUDIO VISUAL SECRETARY Gender Identity Not on file Sexual Orientation Not on file 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
--- OUTSIDE RECORDS SUMMARY | 2024-09-29 06:29 | XMS_ITS | Clinical Summary ---
Author Organization 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 Not on file Not on fi le Obstetrics History Last Filed Vital Signs Vital Sign Reading Time Taken Comments Blood Pressure 139/84 07/01/2024 10:57 AM WHITEPRINTING MACHINE OPERATOR Pulse 67 07/01/2024 10:57 AM WHITEPRINTING MACHINE OPERATOR Temperature - - Respiratory Rate 14 01/17/2023 11:4 8 AM CDT Oxygen Saturation 98% 07/01/2024 10: 57 AM WHITEPRINTING MACHINE OPERATOR Inhaled Oxygen Concentration - - Weight 93.3 kg (205 lb 11.2 oz) 025 10:57 AM WHITEPRINTING MACHINE OPERATOR Height 177.8 cm (5' 10 ) 07/01/2024 10: 57 AM WHITEPRINTING MACHINE OPERATOR Body Mass Index 29.51 07/01/2024 10:57 AM WHITEPRINTING MACHINE OPERATOR Plan of Treatment Health Maintenance Due Date Last Done Comments Fall Risk Assessment 1947 Hepatitis C Screening 1945 DTaP/Tdap/Td Vaccine (1 - Tdap) 1958 Hepatitis B Screening 1965 Pneumococcal vaccine 65+ (1 of 1 - PCV) 1997 Well Visit 65+ 2012 Zoster Vaccine (2 of 2) 11/05/2017 09/10/2017 Depression Screening 03/06/2020 03/06/2019, 03/06/20 19 Influenza Vaccine (Season Ended) 2025 Insurance MEDICARE [facility] MEDICARE BLUE CROSS MEDICARE SUPPLEMENT MEDICARE [facility] Care Teams English Faculty Member Relationship Specialty Start Date End Date Adriano Sosa MD PCP - General 09/12/06
[2024-09-29 06:30] VITALS: BP 179/91; PULSE 68; RESP 17; O2SAT 98
[2024-09-29] MEDS: lisinopriL 20 MG TABLET PO (06:40)
[2024-09-29 06:41] VITALS: PULSE 68
[2024-09-29] MEDS: NEBIVOLOL HCL 5 MG TABLET 20 MG PO (06:41)
[2024-09-29] MEDS: diazePAM INJ (*CRX) 10 MG/2 ML SYRINGE 5 MG IV PUSH (06:42)
--- NOTE | 2024-09-29 06:54 | ED.GENADULT ---
HPI - General Adult General Chief complaint: Recheck/Abnormal Lab/Rx Stated complaint: stroke month ago, HTN today Time Seen by Provider: 09/29/24 06:07 History of Present Illness HPI narrative: This is a 79-year-old with history of hypertension, severe anxiety and recent cerebellar stroke male presenting to the ED with concerns about his blood pressure. Patient had a cerebellar stroke approximately 1 month ago. He then took himself off his clonidine on September 13 because he did not like how it made him feel. A nurse told him that he was heading the right way for a another stroke if he did not control his blood pressure. This made him severely anxious. Today he woke up with feeling that something was wrong. He had a hissing in his ears and a pulse in the back of his neck which he attributes to high blood pressure. He has had both of the symptoms for years. Patient states he had not taken his daily medications yet today. He is denying visual changes, headache, numbness tingling or weakness to any extremity chest pain difficulty breathing abdominal pain nausea vomiting or diarrhea Related Data Home Medications ?Medication ?Instructions ?Recorded ?Confirmed ?Last Taken ?Type cholecalciferol (vitamin D3) 50 50 mcg PO DAILY 07/13/20 09/09/24 06/26/24 History mcg (2,000 unit) capsule folic acid 15 mg tablet 0.4 mg PO DAILY 06/11/21 09/09/24 06/26/24 History acetaminophen 650 mg 650 mg PO Q12H 08/14/24 09/09/24 Unknown History tablet,extended release (Tylenol 8 Hour) aspirin 81 mg tablet,delayed 81 mg PO DAILY 08/14/24 09/09/24 Unknown History release (Adult Aspirin Regimen) Allergies Allergy/AdvReac Type Severity Reaction Status Date / Time azithromycin AdvReac Intermediate Nausea Verified 09/09/24 15:55 ciprofloxacin AdvReac Unknown Nausea Verified 09/09/24 15:55 SHINGLES IMMUNIZATION Allergy Rash Uncoded 09/09/24 15:55 PMFSH Past Medical History Medical History Hyperlipidemia Cerebellar infarction Right hand dominant Dysphagia History of colon polyps Hyponatremia Irritable bowel syndrome Family history of prostate carcinoma Tinea pedis Onychomycosis Macular degeneration Benign prostatic hyperplasia Abdominal adhesions Cataract (lens) fragments in eye following cataract surgery Mitral valve prolapse Essential (primary) hypertension Generalized anxiety disorder Major depressive disorder, single episode, in partial remission Mixed hyperlipidemia Surgical History Surgical History History of root canal procedure History of total hip arthroplasty History of cataract extraction History of total right hip arthroplasty (06/28/21) History of hydrocelectomy History of tonsillectomy History of appendectomy Family History Family History Mother Family history of hypercholesterolemia Hypertension Family history of cardiovascular disease Family history of schizophrenia Father Family history of cardiovascular disease Malignant neoplasm of prostate Grandparent Family history of cardiovascular disease Family history of hypercholesterolemia Sibling Patient's sister is in good health Family history of alcoholism Patient's brother is Other Family history of kidney stones Family history of mental disorder Social History Social History Social History: Surrogate decision maker: Duyen Hicks, daughter. Code status: Full code. 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 Substance use: never Substance use type: does not use Do You Feel Safe in your Home?: Yes Lack of Transportation: No Lack of Food: Never True Current Housing: Decline to Answer Concerned About Future Housing: Decline to Answer Difficulty Paying Gas/Electric Bills: Decline to Answer Difficulty Paying for Meds: Decline to Answer Currently Unemployed: Decline to Answer Education: Decline to Answer Difficulty w/ Childcare or Family Care: Decline to Answer Living arrangements: alone Additional living arrangements comments: . Two grown children. 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 Spiritual care concerns: No Exam Narrative: APPEARANCE: No apparent distress. Head: atraumatic. EYES: EOMI, NOSE: Atraumatic NECK: Trachea midline RESPIRATORY: No increased rate of breathing CTAB CARDIOVASCULAR: RRR, no peripheral edema ABDOMINAL: Non-distended soft nontender MUSCULOSKELETAl: No obvious deformities NEURO: Alert. Cranial nerves 2-12 grossly intact. Sensation light touch, motor function cerebellar function intact for 4 extremities. Gait exam was normal. SKIN:: Warm, dry. Normal color PSYCHIATRIC: Normal affect Course Vital Signs Vital signs: Vital Signs Temperature 98.2 F 09/29/24 05:49 Pulse Rate 75 09/29/24 05:49 Respiratory Rate 13 09/29/24 05:49 Blood Pressure 208/94 H 09/29/24 05:49 Pulse Oximetry 98 09/29/24 05:49 Oxygen Delivery Room Air 09/29/24 05:49 Temperature 98.2 F 09/29/24 05:49 Pulse Rate 68 09/29/24 06:41 Respiratory Rate 17 09/29/24 06:30 Blood Pressure 179/91 H 09/29/24 06:30 Pulse Oximetry 98 09/29/24 06:30 Oxygen Delivery Room Air 09/29/24 05:49 Medical Decision Making MDM Narrative Medical decision making narrative: -Course: 79-year-old male history of anxiety and hypertension presenting with concerns about his blood pressure. Patient was given his home blood pressure medication. He was also given 5 mg of Valium due to his severe anxiety. Screening lab work and CT head have been obtained. Blood pressure improved from 208/94 to 143/83. Screening lab work unremarkable. -DDX includes but is not limited to: Anxiety, hypertensive crisis, intracranial hemorrhage -Co-morbidities complicating care: Hypertension, anxiety, recent cerebellar stroke Independent EKG interpretation: Rhythm [sinus], Rate [79], Bryan -[normal], LA -[normal], QRS [narrow], QTC [normal], T waves -[negative for concerning inversions], ST Segments - [Negative for concerning elevations] Final interpretations: [Normal Sinus Rhythm] Vital Signs Vital Signs: Vital Signs Temperature 98.2 F 09/29/24 05:49 Pulse Rate 75 09/29/24 05:49 Respiratory Rate 13 09/29/24 05:49 Blood Pressure 208/94 H 09/29/24 05:49 Pulse Oximetry 98 09/29/24 05:49 Oxygen Delivery Room Air 09/29/24 05:49 Temperature 98.2 F 09/29/24 05:49 Pulse Rate 68 09/29/24 06:41 Respiratory Rate 17 09/29/24 06:30 Blood Pressure 179/91 H 09/29/24 06:30 Pulse Oximetry 98 09/29/24 06:30 Oxygen Delivery Room Air 09/29/24 05:49 Lab Data 09/29/24 05:54 09/29/24 05:54 Labs: Lab Results 05/11/25 Range/Units 05:54 WBC 5.8 (4.5-10.0) K/mm3 RBC 5.13 (4.6-6.20) M/mm3 Hgb 14.2 (14.0-18.0) g/dL Hct 42.2 (42.0-52.0) % MCV 82.3 (80-100) fl MCH 27.7 (26-34) pg MCHC 33.6 (32-36) g/dl RDW 12.5 (11.5-14.5) % Plt Count 275 (150-375) k/mm3 MPV 9.4 (7.4-10.4) fl Immature Gran % (Auto) 0.5 (0-0.5) % Neut % (Auto) 54.9 (45.5-73.1) % Lymph % (Auto) 30.3 (18.3-44.2) % [place] % (Auto) 9.2 H (2.6-8.5) % Eos % (Auto) 3.9 (0-4.4) % Baso % (Auto) 1.2 (0.2-1.2) % Lymph # (Auto) 1.77 (0.9-3.2) K/mm3 [place] # (Auto) 0.5 (0.1-0.6) K/mm3 Eos # (Auto) 0.2 (0-0.3) K/mm3 Baso # (Auto) 0.1 (0.0-0.1) K/mm3 Abs Immat Gran (auto) 0.03 (0.00-0.031) K/mm3 Absolute Neuts (auto) 3.2 (1.3-6.7) K/mm3 Absolute Nucleated RBC 0.000 (0.0-0.012) K/mm3 Nucleated RBC % 0.0 (0.0-0.2) % Sodium 134 L (137-145) mmol/L Potassium 4.3 (3.4-5.0) mmol/L Chloride 101 (98-107) mmol/L Carbon Dioxide 25 (22-30) mmol/L Anion Gap 8 (4-12) mmol/L BUN 13 (9-20) mg/dL Creatinine 1.04 (0.7-1.3) mg/dL Estim Creat Clear Calc 63 ml/min Estimated GFR > 60 (59 - ) Glucose 98 (65-110) mg/dL Calcium 9.0 (8.4-10.2) mg/dL Total Bilirubin 0.5 (0.2-1.3) mg/dL AST 30 (17-59) U/L ALT 21 (6-50) U/L Alkaline Phosphatase 104 (38-126) U/L Total Protein 7.0 (6.3-8.2) g/dL Albumin 4.3 (3.5-5.1) g/dL Discharge Plan Discharge Clinical Impression: Generalized anxiety disorder, Hypertension Patient Disposition: Home Condition: Stable Instructions: Antibiotic Form, Hypertension (ED), Anxiety (ED) Additional Instructions: You seen in the emergency department for hypertension. Please call your primary care physician to arrange close follow-up to adjust her hypertension meds. Please resume your hypertension meds and their normal schedule. If you develop any new or worsening symptoms please return to ED re-evaluation. Patient Language: Albanian Prescriptions: No Action cholecalciferol (vitamin D3) 50 mcg (2,000 unit) capsule 50 mcg PO DAILY finasteride 5 mg tablet 5 mg PO DAILY Qty: 90 3RF alfuzosin 10 mg tablet extended release 24 hr 10 mg PO DAILY Qty: 90 3RF Rx Instructions: administer after the same meal each day aspirin [Adult Aspirin Regimen] 81 mg tablet,delayed release (DR/EC) 81 mg PO DAILY acetaminophen [Tylenol 8 Hour] 650 mg tablet extended release 650 mg PO Q12H quetiapine [Seroquel] 50 mg tablet 50 mg PO BID Qty: 180 1RF doxepin 50 mg capsule 50 mg PO QHS Qty: 90 1RF rosuvastatin 20 mg tablet 20 mg PO DAILY Qty: 90 1RF clopidogrel [Plavix] 75 mg tablet 75 mg PO DAILY Qty: 90 1RF folic acid 15 mg Tablet 0.4 mg PO DAILY polyethylene glycol 3350 [Miralax] 17 gram Powder In Packet 17 g PO QAM Qty: 30 0RF nebivolol 20 mg tablet 20 mg PO DAILY Qty: 90 3RF buspirone 10 mg tablet 10 mg PO BID Qty: 180 1RF bupropion HCl 150 mg tablet extended release 24 hr See Rx Instructions .ROUTE .COMPLEX Qty: 90 1RF Dose Instruction: TAKE 1 TABLET BY MOUTH EVERY MORNING Rx Instructions: TAKE 1 TABLET BY MOUTH EVERY MORNING lisinopril 20 mg tablet 20 mg PO QPM Qty: 90 1RF Rx Instructions: TAKE 1 TABLET BY MOUTH DAILY omeprazole 40 mg capsule,delayed release(DR/EC) 40 mg PO DAILY Qty: 30 5RF meloxicam 15 mg tablet See Rx Instructions .ROUTE .COMPLEX Qty: 90 1RF Dose Instruction: TAKE 1 TABLET BY MOUTH DAILY Rx Instructions: TAKE 1 TABLET BY MOUTH DAILY doxepin 10 mg/mL concentrate See Rx Instructions .ROUTE .COMPLEX Qty: 540 1RF Dose Instruction: Take 6 mL (60 mg) by mouth daily. Rx Instructions: Take 6 mL (60 mg) by mouth daily. guanfacine 2 mg tablet extended release 24 hr 2 mg PO DAILY Qty: 90 1RF amoxicillin 500 mg capsule 500 mg PO .COMPLEX PRN (Reason: Procedure) Qty: 20 1RF Rx Instructions: 500 mg orally 4 caps 1 hour before procedure Follow-up/Referrals: Adriano Sosa MD [Primary Care Provider] - 2 Days (Anxiety, htn, and anxiety about htn)
[2024-09-29 08:07] VITALS: BP 177/98; PULSE 59; RESP 18; O2SAT 99
== END 2024-09-29 08:08 | disposition home or self-care (01) ==
PROVIDERS: Emergency Provider Emergency Medicine; PCP Family Medicine
DX: I10 Essential (primary) hypertension (principal); F41.1 Generalized anxiety disorder; I34.1 Nonrheumatic mitral (valve) prolapse; E78.2 Mixed hyperlipidemia; N40.0 Benign prostatic hyperplasia without lower urinary tract symptoms; K58.9 Irritable bowel syndrome, unspecified; H35.30 Unspecified macular degeneration; H59.029 Cataract (lens) fragments in eye following cataract surgery, unspecified eye; Z96.641 Presence of right artificial hip joint; Z86.0100 Personal history of colon polyps, unspecified; Z86.73 Personal history of transient ischemic attack (TIA), and cerebral infarction without residual deficits; Z79.82 Long term (current) use of aspirin; Z79.899 Other long term (current) drug therapy; Z79.02 Long term (current) use of antithrombotics/antiplatelets; I45.10 Unspecified right bundle-branch block
CPT/HCPCS: 36415; 70450; 80053; 85025; 93005; 96374; 99284; A9270; J3360

== ENCOUNTER 2024-11-09 09:22 | Outpatient (CLI) | payer MEDICARE, SELFPAY ==
--- NOTE | ~2024-11-09 | US_ITS ---
EXAMINATION: US retroperitoneal duplex ltd DATE: 11/09/2024 10:07 INDICATION: hypertension TECHNIQUE: Multiple grayscale, color Doppler, and pulsed Doppler images of the kidneys and renal elaine lelo were obtained. COMPARISON: None. FINDINGS: The aorta peak systolic velocity is 79 cm/s. Right kidney measures 10.9 x 6.1 x 5.3 cm with normal co ntour and echogenicity with no hydronephrosis. The right renal artery peak systolic velocity is 93 cm /s in the proximal segment, 75 cm/s in the mid segment, and 60 cm/s in the distal segment. The left k idney measures 11.8 x 5.4 x 4.0, also with normal contour and echogenicity and no hydronephrosis. The left renal artery peak systolic velocity is 166 cm/s in the proximal segment, 43 cm/s in the mid seg ment, and 57 cm/s in the distal segment. IMPRESSION: 1. Normal kidneys with no hydronephrosis and no Doppler evidence of renal artery stenosis. Reviewed, dictated and finalized at location A. IMPRESSION: 1. Normal kidneys with no hydronephrosis and no Doppler evidence of renal elaine ry stenosis.
== END 2024-11-09 09:23 | disposition home or self-care (01) ==
PROVIDERS: PCP Family Medicine; Visit Provider Nurse Practitioner
DX: I10 Essential (primary) hypertension (principal)
CPT/HCPCS: 93976

== ENCOUNTER 2024-11-18 09:20 | Outpatient (CLI) | payer MEDICARE, SELFPAY ==
[2024-11-18 12:28] LABS: Anion Gap 6 mmol/L (4-12); Blood Urea Nitrogen 15 mg/dL (9-20); Carbon Dioxide 27 mmol/L (22-30); Chloride 104 mmol/L (98-107); Creatine Kinase 86 U/L (55-170); Estimated Glomerular Filt Rate > 60; Glucose 71 mg/dL (65-110); Potassium 4.1 mmol/L (3.4-5.0); Sodium 137 mmol/L (137-145)
[2024-11-20 14:55] LABS: Aldolase. 3.6 U/L (< OR = 8.1)
== END 2024-11-18 09:21 | disposition home or self-care (01) ==
LOC: ANHGOSHLAB 09:21
PROVIDERS: PCP Family Medicine; Visit Provider Family Medicine
DX: M79.10 Myalgia, unspecified site (principal); T46.6X5A Adverse effect of antihyperlipidemic and antiarteriosclerotic drugs, initial encounter
CPT/HCPCS: 36415; 80048; 82085; 82550

== ENCOUNTER 2025-05-12 15:36 | Outpatient (CLI) | payer MEDICARE, SELFPAY ==
--- OUTSIDE RECORDS SUMMARY | 2025-05-12 17:00 | XMS_ITS | Clinical Summary ---
Author Organization [facility] Address [address] [place] [address] Phone Care Team Providers Care Glycerin Operator Name Role Phone Adriano Sosa MD Primary Care Provider [phone]- [phone] Social History Tobacco Use Types Packs/Day Years [...] 1-dose 75+ series) 2022 Influenza Immunization (#1) 2025 03/03/2020 SARS-COV-2 Immunization ( season) 2025 02/15/2021, 08/06/2020, 07/14/2020 Hepatitis B Immunization Aged Out No longer eligible based on patient's age to complete this topic Human Papillomavirus (HPV) Immunization Aged Out No longer eligible b ased on patient's age to complete this topic Meningococcal Immunization (ACWY) Aged Out No longer eligible b ased on patient's age to complete this topic Rotavirus Immunization Aged Out No lo nger eligible based on patient's age to complete this topic Insurance MEDICARE [facility] Care Teams Glycerin Operator Relationship Specialty Start Date End Date Adriano Sosa MD [address] [place] [address] [address] [place] [address] PCP - General Family Medicine 02/29/16
--- OUTSIDE RECORDS SUMMARY | 2025-05-12 17:00 | XMS_ITS | Encounter Summary ---
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 Not on file Not on fi le documented as of this encounter Plan of Treatment Not on file documented as of this encounter Procedures Procedure Name Priority Date/Time Associated Diagnosis Comments CARDIOLOGY DOCUMENT SCAN 09/26/2024 documented in this encounter Results * Cardiology Document Scan (09/26/2024) Anatomical Region Laterality Modality Other us Provider Scanning [facility] CARDIAC SERVICES PROCEDURES Final Result documented in this encounter Visit Diagnoses Not on filedocumented in this encounter Care Teams Neurology Nurse Relationship Specialty Start Date End Date Adriano Sosa MD PCP - General 09/12/06 documented as of this encounter
--- OUTSIDE RECORDS SUMMARY | 2025-05-12 17:00 | XMS_ITS | Encounter Summary ---
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 Not on file Not on fi le documented as of this encounter Plan of Treatment Not on file documented as of this encounter Procedures Procedure Name Priority Date/Time Associated Diagnosis Comments CARDIOLOGY DOCUMENT SCAN 10/09/2024 documented in this encounter Results * Cardiology Document Scan (10/09/2024) Anatomical Region Laterality Modality Other us Provider Scanning [facility] CARDIAC SERVICES PROCEDURES Final Result documented in this encounter Visit Diagnoses Not on filedocumented in this encounter Care Teams Sales Assistant Displays Relationship Specialty Start Date End Date Adriano Sosa MD PCP - General 09/12/06 documented as of this encounter
--- OUTSIDE RECORDS SUMMARY | 2025-05-12 17:00 | XMS_ITS | Clinical Summary ---
Author Organization [facility] [address] Address [address] [place] [address] Care Team Providers Care Clinical Trainer Name Role Phone Adriano Sosa MD Primary Care Provider [phone] [phone] Allergies Active Allergy Reactions Criticality Noted Date [...] polyethylene glycol 3350 (MIRALAX ORAL) Activ e levomefolate-alg al oil 15-90.314 mg capsule L-Methylfolate [...] (10 mg total) by mouth daily Active acetaminophen (TYLENOL) 325 mg suppository Insert 1 suppository (325 mg total) into the rectum every 4 (four) hours as needed for pain Active omeprazole (PriLOSEC) 40 mg capsule Take 1 capsule (40 mg total) by mouth daily Active amLODIPine (NORVASC) 5 mg tabletIndication s:Hypertension, essential Take 2 tablets (10 mg total) by mouth daily 60 tablet 11 5 10/29/19 26 Active clopidogreL (PLAVIX) 75 mg tablet Take 1 tablet (75 mg total) by mouth daily 5 Active guanFACINE ER (INTUNIV) 2 mg tablet extended release 24 hr Take 1 tablet (2 mg total) by mouth daily 5 Active rosuvastatin (CRESTOR) 5 mg tablet Take 1 tablet (5 mg total) by mouth daily Active Active [...] 03/17/2011 Assessment & Plan (06/28/2022 2:01 PM [employer]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 Not on file Not on fi le Last Filed Vital Signs Vital Sign Reading Time Taken Comments Blood Pressure 140/74 01/01/2025 8:38 AM CDT Pulse 75 01/01/2025 8:38 AM CDT Temperature - - Respiratory Rate 14 01/17/2023 11:48 AM CDT Oxygen Saturation 97% 01/01/2025 8:38 AM CDT Inhaled Oxygen Concentration - - Weight 93.9 kg (207 lb) 01/01/2025 8:38 AM CDT Height 177.8 cm (5' 10) 01/01/2025 8:38 AM CDT Body Mass Index 29.7 01/01/2025 8:38 AM CDT Plan of Treatment Health Maintenance Due Date Last Done Comments Fall Risk Assessment 1945 Hepatitis C Screening 1945 DTaP/Tdap/Td Vaccine (1 - Tdap) 1958 Hepatitis B Screening 1965 Pneumococcal vaccine 65+ (1 of 1 - PCV) 1997 Well Visit 65+ 2012 Zoster Vaccine (2 of 2) 11/05/2017 09/10/2017 Depression Screening 03/06/2020 03/06/2019, 03/06/20 19 Influenza Vaccine (#1) 2025 Insurance MEDICARE [facility] MEDICARE BLUE CROSS MEDICARE SUPPLEMENT MEDICARE [facility] Care Teams Clinical Trainer Relationship Specialty Start Date End Date Adriano Sosa MD [facility] - General 09/12/06
--- OUTSIDE RECORDS SUMMARY | 2025-05-12 17:00 | XMS_ITS | Encounter Summary ---
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 Not on file Not on fi le documented as of this encounter Plan of Treatment Not on file documented as of this encounter Procedures Procedure Name Priority Date/Time Associated Diagnosis Comments SCAN - RADIOLOGY/IMAGING 08/10/2024 documented in this encounter Results * SCAN - RADIOLOGY/IMAGING (08/10/2024) Anatomical Region Laterality Modality Other us Provider Scanning Final Result documented in this encounter Visit Diagnoses Not on filedocumented in this encounter Care Teams Health Plan Specialist Relationship Specialty Start Date End Date Adriano Sosa MD PCP - General 09/12/06 documented as of this encounter
--- OUTSIDE RECORDS SUMMARY | 2025-05-12 17:00 | XMS_ITS | Clinical Summary ---
Author Organization [facility] Address [address] [place] [address] Care Team Providers Care Photo Machine Operator Name Role Phone Unavailable Primary Care Provider [...] by mouth daily. 90 Tablet 3 5 4:33 PM CDT 02/26/20 24 Active alfuzosin (UROXATRAL) 10 mg Extended Release 24 hour tablet Take 1 Tablet (10 mg) by mouth daily at bedtime. 30 Tablet 12 4 11:08 AM CAD DEVELOPER 01/23/20 24 Active hydrocortisone acetate (Anucort-HC) 25 mg Suppository Unwrap and Insert 1 Suppository (25 mg) by rectum 2 times daily. 12 Suppository 1 02/21/20 24 Active busPIRone (BUSPAR) 10 mg tablet Take 1 Tablet (10 mg) by mouth 2 times daily. 180 Tablet 1 5 6:21 PM CDT 03/01/20 24 Active finasteride (PROSCAR) 5 mg tablet Take 1 Tablet (5 mg) by mouth daily. 90 Tablet 3 4 12:58 PM CAD DEVELOPER 05/13/20 24 Active cloNIDine HCL (CATAPRES) 0.1 mg tablet Take 1 Tablet (0.1 mg) by mouth 2 times daily. 180 Tablet 1 5 4:43 PM CAD DEVELOPER 07/08/19 25 Active rosuvastatin (CRESTOR) 5 mg tablet Take 1 Tablet (5 mg) by mouth daily. 90 Tablet 1 5 6:05 PM CDT 08/15/19 25 Active doxepin (SINEquan) 10 mg/mL Concentrate Take 6 mL (60 mg) by mouth daily. 540 mL 1 5 11:26 AM CAD DEVELOPER 08/22/19 25 Active amoxicillin (AMOXIL) 500 mg capsule Take As Needed for Procedure; 4 capsules 1 hour before procedure 20 Capsule 1 5 1:23 PM CDT 09/28/19 25 Active amLODIPine (NORVASC) 10 mg tablet Take 1 Tablet (10 mg) by mouth daily. 30 Tablet 11 5 4:13 PM CAD DEVELOPER 10/29/19 25 Active clopidogreL (PLAVIX) 75 mg Tablet Take 1 Tablet (75 mg) by mouth daily. 90 Tablet 3 5 4:13 PM CAD DEVELOPER 01/03/20 25 Active QUEtiapine (SEROquel) 50 mg tablet Take one tablet (50 mg) orally twice a day 180 Tablet 1 5 4:13 PM CAD DEVELOPER 02/05/20 25 Active buPROPion HCL (WELLBUTRIN XL) 150 mg Extended Release 24 hour tablet TAKE 1 TABLET (150mg) BY MOUTH EVERY MORNING 90 Tablet 1 5 11:52 AM T 02/14/20 25 Active busPIRone (BUSPAR) 10 mg tablet Take 1 Tablet (10 mg) by mouth 2 times daily. 180 Tablet 1 5 11:50 AM T 02/18/20 25 Active lisinopriL (PRINIVIL) 20 mg tablet Take 1 Tablet (20 mg) by mouth daily in the evening. 90 Tablet 1 5 11:52 AM T 02/19/20 25 Active guanFACINE (INTUNIV) 1 mg Extended Release 24 hour tablet Take 1 tablet by mouth once daily 90 Tablet 1 5 3:32 PM T 02/25/20 25 Active meloxicam (MOBIC) 15 mg tablet Take 1 Tablet (15 mg) by mouth daily. 90 Tablet 1 5 3:32 PM CDT 02/26/20 25 Active pantoprazole (PROTONIX) 40 mg Tablet, Delayed Release (E.C.) Take 1 Tablet (40 mg) by mouth daily at bedtime. 90 Tablet 1 5 1:18 PM CAD DEVELOPER 03/24/20 25 Active buPROPion HCL (WELLBUTRIN XL) 300 mg Extended Release 24 hour tablet Take 1 Tablet (300 mg) by mouth daily in the morning. 90 Tablet 3 5 5:24 PM CAD DEVELOPER 04/07/20 25 Active alfuzosin (UROXATRAL) 10 mg Extended Release 24 hour tablet Take 1 Tablet (10 mg) by mouth daily. Administer after the same meal each day. 90 Tablet 3 5 4:13 PM CAD DEVELOPER 05/05/20 25 Active finasteride (PROSCAR) 5 mg tablet Take 1 Tablet (5 mg) by mouth daily. 90 Tablet 4 5 4:13 PM CAD DEVELOPER 05/05/20 25 Active nebivoloL (BYSTOLIC) 20 mg Tablet Take 1 Tablet (20 mg) by mouth daily. 90 Tablet 1 5 4:13 PM CAD DEVELOPER 05/12/20 25 Active nebivoloL (BYSTOLIC) 20 mg Tablet Take 1 Tablet (20 mg) by mouth daily. 90 Tablet 3 5 11:50 AM CDT 02/26/20 24 025 Discontin ued(Reord er) finasteride (PROSCAR) 5 mg tablet Take 1 Tablet (5 mg) by mouth daily. 90 Tablet 4 5 11:57 AM CDT 02/26/20 24 025 Discontin ued(Reord er) alfuzosin (UROXATRAL) 10 mg Extended Release 24 hour tablet Take 1 Tablet (10 mg) by mouth daily. Take after the same meal each day. 90 Tablet 3 5 11:57 AM CDT 05/13/20 24 025 Discontin ued(Reord er) Encounters Date Type Department Care Team Description 04/22/2025 External Device Data [facility] ABSTRACTION Provider, Abstract 03/12/2025 External Device Data ST[facility] ABSTRACTION Provider, Abstract 03/11/2025 External Device Data STL ABSTRACTION Provider, Abstract [...] 1-dose 75+ series) 2022 INFLUENZA VACCINE (#1) 2024 Insurance RX [facility] Medicare Part D RX [employer] [facility]
[2025-05-12 18:55] LABS: Cholesterol 245 mg/dL (0-200); HDL Direct 53 mg/dL; Triglycerides 66 mg/dL (<150)
== END 2025-05-12 15:37 | disposition home or self-care (01) ==
LOC: ANHGOSHLAB 15:37
PROVIDERS: PCP Family Medicine; Visit Provider Family Medicine
DX: I63.9 Cerebral infarction, unspecified (principal)
CPT/HCPCS: 36415; 80061